=== PATIENT | male | born 1950 | race Caucasian/White ===

== ENCOUNTER → 2017-03-06 14:26 | Outpatient (CLI) | payer MEDICARE, MEDICAID, SELFPAY ==
[2017-03-06 16:00] LABS: Alanine Aminotransferase 14 U/L (12-78); Albumin Level 3.5 gm/dL (3.4-5.0); Albumin/Globulin Ratio 1.1 (1.1-1.8); Alkaline Phosphatase 120 U/L (46-116); Anion Gap 11.1 mEq/L (5-15); Aspartate Amino Transferase 17 U/L (15-37); Bilirubin,Total 0.6 mg/dL (0.2-1.0); Blood Urea Nitrogen 13 mg/dL (7-18); Calcium 8.9 mg/dL (8.5-10.1); Carbon Dioxide 27 mmol/L (21.0-32.0); Chloride 104 mmol/L (98-107); Chol/HDL Ratio 2.8 (1-3.5); Cholesterol 117 mg/dL (140-200); Creatinine,Serum 1.22 mg/dL (0.70-1.30); Estimated Glomerular Filt Rate 59 ml/min (>60); GFR (African American) > 60 ML/MIN (>60); Globulin 3.3 gm/dl (1.3-3.2); Glucose 90 mg/dL (74-106); HDL Cholesterol 42 mg/dL (27-67); LDL Cholesterol 62 mg/dL (0-130); Potassium 4.1 mmoL/L (3.5-5.1); Sodium 138 mmol/L (136-145); Total Protein,Serum 6.8 gm/dL (6.4-8.2); Triglycerides 65 mg/dL (30-200); VLDL Cholesterol 13 mg/dL (0-40)
== END ==
PROVIDERS: PCP Nurse Practitioner Family; Visit Provider Internal Medicine
DX: E78.2 Mixed hyperlipidemia (principal); I10 Essential (primary) hypertension; Z00.00 Encounter for general adult medical examination without abnormal findings
CPT/HCPCS: 36415; 80053; 80061

== ENCOUNTER 2017-05-08 10:24 | Emergency (ER) | payer MEDICARE, MEDICAID, SELFPAY ==
[2017-05-08 10:36] VITALS: BP 115/93; PULSE 75; RESP 20; TEMP 36.5; O2SAT 97; BMI 20.7
--- NOTE | 2017-05-08 10:55 | HMH.EDUTC ---
[facility] [place] Disposition Clinical Impression: Sinusitis Qualifiers: Sinusitis location: other Chronicity: unspecified Qualified Code(s): J32.9 - Chronic sinusitis, unspecified Disposition: Home, Self-Care Condition on Discharge: Good Instructions: Sinusitis, Sinus Headache, DI for Sinusitis Additional Instructions: Start antibiotic. Sinus infections may take 2-3 days to notice much improvement so be sure to use conservative measures as discussed for symptoms Flonase 2 spray in each nostril daily to help with nasal congestion, sinus an ear pressure/inflammation Lots of Fluids Sleep elevated Humidifer/vaporizer Augmentin can cause GI effects. Probiotics may help to prevent these symptoms Prescriptions: Amoxicillin/Potassium Clav [Augmentin 500mg tab] 500 mg PO TID #30 tab Dextromethorphan Polistirex [Delsym] 10 mg PO Q12H PRN #350 [email or web address] PRN Reason: Cough Referrals: Tere Germain APRN [Primary Care Provider] - Time of Disposition: 11:21 Medical Decision Making - Medical Records Medical records reviewed: Yes: I reviewed the patient's medical records. Vital Signs: 05/08/17 10:36 Temperature 97.7 F Temperature Source Temporal Artery Scan Pulse Rate [Right] 75 Respiratory Rate 20 Blood Pressure [Right Arm] 115/93 Blood Pressure Mean [Right Arm] 100 Blood Pressure Source [Right Arm] Automatic Cuff Blood Pressure Position [Right Arm] Sitting 02 Sat by Pulse Oximetry 97 Oxygen Delivery Method Room Air Orders (Tests/Meds): ORDERS Category Date Time Status Chest XR 2 view (NOT portable) [XR chest 2V] Stat Exams 05/08/17 10:59 Taken - Radiology Data #1 Image(s): Chest Image Reviewed: Yes I reviewed the patient's radiology image w/the ED provider Preliminary Findings: No Infiltrates Seen Discussed with Dr Carballo no acute findings, pacemaker - Bubba Inquiry Pt receiving controlled substance: No Bubba was queried for this patient: No - Reevaluation(s) Time: 11:16 Reevaluation #1: Patient condition and complaint discussed with Dr Carballo and agreed Treat patient with Augmentin 500mg TID for 10 days Patient also reports recent weight loss after hernia repair surgery that he has not spoken to family doctor about it Patient was advised that he needed to follow up immediately with family doctor and advise them of the weight loss for further evaluation. [facility] [place] HPI - General Stated complaint: cough dizzy ribs sore Mode of Arrival: Ambulatory Source of Information: Patient Limitations: No Limitations Description of Symptoms (Recalled from Triage Doc. by RN): COUGH, CONGESTION X4 DAYS HEENT Symptoms (Recalled from RN notes): Yes Resp Symptoms (Recalled from RN notes): No Skin Symptoms (Recalled from RN notes): No MS Symptoms (Recalled from RN notes): No Functional Status (Recalled from RN notes): N - History of Present Illness Provider Complaint: Patient state that he has been having sinus pain and pressure along with drainage, sore throat and cough that has continued to get worse State that he isn't coughing anything up States that he feels sore under his eyes and has had sinus headache for a couple of days State that now he has coughed so much his ribs feels sore - Related Data Home Medications Medication Instructions Recorded Confirmed Hydrocod/Acet 5/325 mg [[place] 5 mg PO DAILY 05/08/17 05/08/17 5/325mg tablet] Previous Rx's Medication Instructions Recorded Amoxicillin/Potassium Clav 500 mg PO TID #30 tab 05/08/17 [Augmentin 500mg tab] Dextromethorphan Polistirex 10 mg PO Q12H PRN #350 [email or web address] 05/08/17 [Delsym] Allergies Allergy/AdvReac Type Severity Reaction Status Date / Time No Known Allergies Allergy Verified 05/08/17 10:40 - Worker's Comp Is this a Worker's Comp case?: No [facility] History I have reviewed the patient's past medical history: Yes Medical History: Reports:: Hyperlipidemia, Hypertension Other Surgeries: Yes: P
--- NOTE | 2017-05-08 10:59 | ED_ITS ---
[facility] [place] Clinical Impression: Sinusitis Qualifiers: Sinusitis location: other Chronicity: unspecified Qualified Code(s): J32.9 - Chronic sinusitis, unspecified Disposition: Home, Self-Care Condition on Discharge: Good Instructions: Sinusitis, Sinus Headache, DI for Sinusitis Additional Instructions: Start antibiotic. Sinus infections may take 2-3 days to notice much improvement so be sure to use conservative measures as discussed for symptoms Flonase 2 spray in each nostril daily to help with nasal congestion, sinus an ear pressure/inflammation Lots of Fluids Sleep elevated Humidifer/vaporizer Augmentin can cause GI effects. Probiotics may help to prevent these symptoms Prescriptions: Amoxicillin/Potassium Clav [Augmentin 500mg tab] 500 mg PO TID #30 tab Dextromethorphan Polistirex [Delsym] 10 mg PO Q12H PRN #350 [email or web address].[email or web address] PRN Reason: Cough Referrals: Tere Germain APRN [Primary Care Provider] - Time of Disposition: 11:21 Medical Decision Making - Medical Records Medical records reviewed: Yes: I reviewed the patient's medical records. Vital Signs: 05/08/17 10:36 Temperature 97.7 F Temperature Source Temporal Artery Scan Pulse Rate [Right] 75 Respiratory Rate 20 Blood Pressure [Right Arm] 115/93 Blood Pressure Mean [Right Arm] 100 Blood Pressure Source [Right Arm] Automatic Cuff Blood Pressure Position [Right Arm] Sitting 02 Sat by Pulse Oximetry 97 Oxygen Delivery Method Room Air Orders (Tests/Meds): ORDERS Category Date Time Status Chest XR 2 view (NOT portable) [XR chest 2V] Stat Exams 05/08/17 10:59 Taken - Radiology Data #1 Image(s): Chest Image Reviewed: Yes I reviewed the patient's radiology image w/the ED provider Preliminary Findings: No Infiltrates Seen Discussed with Dr Carballo no acute findings, pacemaker - Bubba Inquiry Pt receiving controlled substance: No Bubba was queried for this patient: No - Reevaluation(s) Time: 11:16 Reevaluation #1: Patient condition and complaint discussed with Dr Carballo and agreed Treat patient with Augmentin 500mg TID for 10 days Patient also reports recent weight loss after hernia repair surgery that he has not spoken to family doctor about it Patient was advised that he needed to follow up immediately with family doctor and advise them of the weight loss for further evaluation. [facility] [place] HPI - General Stated complaint: cough dizzy ribs sore Mode of Arrival: Ambulatory Source of Information: Patient Limitations: No Limitations Description of Symptoms (Recalled from Triage Doc. by RN): COUGH, CONGESTION X4 DAYS HEENT Symptoms (Recalled from RN notes): Yes Resp Symptoms (Recalled from RN notes): No Skin Symptoms (Recalled from RN notes): No MS Symptoms (Recalled from RN notes): No Functional Status (Recalled from RN notes): N - History of Present Illness Provider Complaint: Patient state that he has been having sinus pain and pressure along with drainage, sore throat and cough that has continued to get worse State that he isn't coughing anything up States that he feels sore under his eyes and has had sinus headache for a couple of days State that now he has coughed so much his ribs feels sore - Related Data Home Medications Medication Instructions Recorded Confirmed Hydrocod/Acet 5/325 mg [[place] 5 mg PO DAILY 05/08/17 05/08/17 5/325mg tablet]
--- NOTE | 2017-05-08 10:59 | XR_ITS ---
XR chest 2V HISTORY: ITS.REASON: congestion/cough ORDERING PHYSICIAN: Tiffany Paulson PATIENT AGE: 66 years COMPARISON: 06/23/2016 FINDINGS: There has been prior CABG. A bipolar pacemaker is present COPD. No lobar consolidation or collapse. No acute bony anomalies. IMPRESSION: COPD, No change with no acute finding
[2017-05-08 11:18] VITALS: BP 115/93; PULSE 75; RESP 20; TEMP 36.5
== END 2017-05-08 11:39 | disposition home or self-care (01) ==
PROVIDERS: Emergency Provider Nurse Practitioner; Family Provider Nurse Practitioner Family; PCP Nurse Practitioner Family
DX: J32.9 Chronic sinusitis, unspecified (principal); I10 Essential (primary) hypertension; E78.5 Hyperlipidemia, unspecified; Z95.0 Presence of cardiac pacemaker
CPT/HCPCS: G0463; 71046; 99202

== ENCOUNTER → 2017-11-09 10:46 | Outpatient (CLI) | payer MEDICARE, MEDICAID, SELFPAY ==
[2017-11-09 10:56] LABS: Adenovirus,PCR Not Detected (NotDetected); Bordetella Pertussis Not Detected (NotDetected); Chlamydophila Pneumoniae, PCR Not Detected (NotDetected); Coronavirus 229E Not Detected (NotDetected); Coronavirus NL63 Not Detected (NotDetected); Coronavirus OC43 Not Detected (NotDetected); Coronovirus HKU1,PCR Not Detected (NotDetected); Human Metapneumovirus Not Detected (NotDetected); Influenza A, PCR Not Detected (NotDetected); Influenza AH1, 2009 Not Detected (NotDetected); Influenza AH1, PCR Not Detected (NotDetected); Influenza AH3,PCR Not Detected (NotDetected); Influenza B, PCR Not Detected (NotDetected); Mycoplasma Pneumoniae, PCR Not Detected (NotDected); Parainfluenza 1, PCR Not Detected (NotDetected); Parainfluenza 2, PCR Not Detected (NotDetected); Parainfluenza 3, PCR Not Detected (NotDetected); Parainfluenza 4, PCR Not Detected (NotDetected); Respiratory Syncytial Virus Not Detected (NotDetected)
[2017-11-09 11:28] LABS: Basophils # 0.1 K/mm3 (0-0.2); Basophils % 0.5 % (0.1-2.0); Eosinophils % 0.4 % (0.1-12.0); Hematocrit 45.9 % (42.0-52.0); Hemoglobin 15.1 g/dL (14.1-18.0); Lymphocytes # 2.5 K/mm3 (0.7-4.5); Lymphocytes % 23.2 K/mm3 (10-50); Mean Corpuscular HGB Conc 32.9 g/dL (31.8-35.4); Mean Corpuscular Hemoglobin 28.4 pg (27.0-31.2); Mean Corpuscular Volume 86.5 fl (80-94); Mean Platelet Volume 7.1 fl (7.4-10.4); Monocytes # 0.6 K/mm3 (0.1-1.0); Monocytes % 5.8 % (1.7-9.3); Neutrophils # 7.4 K/mm3 (1.8-7.8); Neutrophils % 70.1 % (37.0-80.0); Platelet Count 216 K/mm3 (142-424); Red Cell Distribution Width 12.7 % (11.5-17.5); White Blood Count 10.6 K/mm3 (4.8-10.8)
[2017-11-09 12:42] LABS: Rhinovirus/Enterovirus Detected (NotDetected)
[2017-11-09 13:05] LABS: Alanine Aminotransferase 15 U/L (12-78); Albumin/Globulin Ratio 0.7 (1.1-1.8); Alkaline Phosphatase 117 U/L (46-116); Anion Gap 13.5 mEq/L (5-15); Aspartate Amino Transferase 13 U/L (15-37); Bilirubin,Total 0.7 mg/dL (0.2-1.0); Blood Urea Nitrogen 19 mg/dL (7-18); Carbon Dioxide 27 mmol/L (21.0-32.0); Chloride 108 mmol/L (98-107); Chol/HDL Ratio 2.4 (1-3.5); Cholesterol 91 mg/dL (140-200); Creatinine,Serum 1.33 mg/dL (0.70-1.30); Estimated Glomerular Filt Rate 53 ml/min (>60); GFR (African American) 65 ML/MIN (>60); Globulin 4.1 gm/dl (1.3-3.2); Glucose 98 mg/dL (74-106); HDL Cholesterol 38 mg/dL (27-67); LDL Cholesterol 42 mg/dL (0-130); Potassium 4.5 mmoL/L (3.5-5.1); Sodium 144 mmol/L (136-145); Total Protein,Serum 7.1 gm/dL (6.4-8.2); Triglycerides 56 mg/dL (30-200); VLDL Cholesterol 11 mg/dL (0-40)
[2017-11-10 18:28] LABS: Vitamin B12 358 pg/mL (232-1245)
== END ==
PROVIDERS: PCP Internal Medicine Adolescent Medicine; Visit Provider Internal Medicine Adolescent Medicine
DX: E78.2 Mixed hyperlipidemia (principal); J44.1 Chronic obstructive pulmonary disease with (acute) exacerbation; E53.8 Deficiency of other specified B group vitamins
CPT/HCPCS: 36415; 80053; 80061; 82607; 85025; 87486; 87581; 87633; 87798

== ENCOUNTER → 2017-11-27 08:45 | Outpatient (POV) | payer MEDICARE, MEDICAID, SELFPAY | PROVIDERS: Family Provider Nurse Practitioner Family; PCP Internal Medicine Adolescent Medicine; Visit Provider Internal Medicine | DX: Z00.00 Encounter for general adult medical examination without abnormal findings (principal) ==

== ENCOUNTER → 2017-12-13 13:43 | Outpatient (CLI) | payer MEDICARE, MEDICAID, SELFPAY ==
[2017-12-13 14:18] LABS: Blood Urea Nitrogen 14 mg/dL (7-18); Creatinine,Serum 1.32 mg/dL (0.70-1.30); Estimated Glomerular Filt Rate 54 ml/min (>60); GFR (African American) 65 ML/MIN (>60)
--- NOTE | 2017-12-13 14:27 | CT_ITS ---
CT angio LE BI INDICATION: ITS.REASON: CLAUDICATION IN PVD, BILAT LEG PAIN ORDERING PHYSICIAN: Neal Hammond MD PATIENT AGE: 67 years COMPARISON: 10/25/2014 TECHNIQUE: Axial images are obtained following the intravenous ministration of 120 mL's of Isovue-370. Sagittal and coronal reformats are reviewed. . Sagittal and coronal reformatted images are reviewed as well. All CT scans at the facility use one or more dose reduction, viz: automated exposure control, ma/kV adjustment per patient size (including targeted exams where dose is matched to indication, i.e. head), or iterative reconstruction technique. FINDINGS: Abdominal aorta: Atheromatous changes involve the abdominal aorta. There is a fusiform infrarenal abdominal aortic aneurysm which measures up to 3.9 cm AP and transverse. This begins 2.6 cm below the level of the renal arteries. This extends for length of 4.2 cm with a aorta becomes normal caliber of 1.8 cm and then becomes aneurysmal again measuring up to 2.7 cm and then tapers to normal at the aortic bifurcation. The superior mesenteric artery and celiac artery show no significant stenosis. The TONG emerges from the aorta anteriorly along the lower part of the superior superior aneurysm and is patent. No evidence of renal artery stenosis. Atheromatous changes involve the iliac arteries with no significant stenosis. Right lower extremity runoff: Scattered atheromatous changes of the SFA and popliteal. Vessels below the knee are small in caliber. There is segmental stenotic areas of the right anterior tibia which is only patent to the mid calf. The peroneal artery is very small and patent to the mid calf. The anterior tibia is patent to the ankle with no significant stenosis. Left lower extremity: Mild atheromatous changes are present in the SFA proximally. There is 50% stenosis involving a short segment of the mid SFA on the left. The popliteal has an unremarkable appearance. Atheromatous changes are present involving the trifurcation vessels. The vessels to the lower extremity below the knee are small. Posterior tibial is patent to the ankle. The anterior tibial is only patent to the mid calf as is the peroneal. Nonvascular findings: Fibrotic changes are present in the lung bases. There is parenchymal opacity in the right lung base posteriorly which may be due to an area of atelectasis or fibrosis. Developing nodules also a consideration and follow-up is recommended. This measures 1.6x0.8 cm. There is a peripherally enhancing lesion in the left lobe of the liver medially measuring 1.5 cm and may be due to a hemangioma. Spleen, adrenal glands, and pancreas are unremarkable. There is a 3.2 cm right renal cyst along the upper pole. There is a 4 mm nonobstructing stone in the upper pole the left kidney and a 6 mm stone in the lower pole the left kidney. There is a small ventral abdominal wall hernia in the sulci void region to the right of midline containing fat with some increased density which could be due to some underlying inflammation nonspecific. Scattered diverticula are present involving the colon with no evidence of diverticulitis. No pelvic mass or abnormal fluid collection. No evidence of appendicitis. There are surgical clips along the medial aspect of the right leg and could be due to prior vein harvesting site. Clip is also present along the medial aspect of the thigh proximally bone infarction involves the proximal femur on the right with mixed sclerotic and lucent density IMPRESSION: 1. Infrarenal abdominal aortic aneurysm as described above measuring up to 3.9 x 3.9 cm previously 3.3 x 3.4 cm on 10/25/2014 2. 50% short segment stenosis of the mid left SFA. 3. Small bilateral lower extremity runoff vessels below the knee with atheromatous changes. The posterior tibial artery i
== END ==
PROVIDERS: Family Provider Nurse Practitioner Family; PCP Internal Medicine Adolescent Medicine; Visit Provider Internal Medicine Adolescent Medicine
DX: I73.9 Peripheral vascular disease, unspecified (principal); M79.605 Pain in left leg; M79.604 Pain in right leg
CPT/HCPCS: 36415; 73701; 82565; 84520; Q9967

== ENCOUNTER → 2018-01-14 06:56 | Outpatient (CLI) | payer MEDICARE, MEDICAID, SELFPAY ==
--- NOTE | 2018-01-14 06:59 | US_ITS ---
US Arterial Ankle Brachial Ind History: Claudication, smoker, rest pain ITS.REASON: pains in legs ORDERING PHYSICIAN: Heath Mccurdy MD PATIENT AGE: 67 years TECHNIQUE: Segmental pressures obtained of both right and left leg. These are compared to brachial blood pressure to yield index at each level sampled including summary RAJ. The data sheets from the procedure are available in PACS FINDINGS Rest study only performed today No prior studies available for comparison. Blood pressures reported are in millimeters mercury. RIGHT LEG RAJ = 1.1. RIGHT LEG TBI=.4 Brachial BP: 148 Thigh BP: 164 Calf BP: 160 Ankle PT: 162 Ankle DP : 160 Digit =63 LEFT LEG RAJ = 1.0 LEFT LEG TBI= .5 Brachial BPD: 143 Thigh BP: 145 Calf BP: 152 Ankle PT:154 Ankle DP: 93 Digit = 78 Pulses and waveforms: Normal IMPRESSION: The ABIs as reported above are within normal limits. Waveforms and pulses are also unremarkable. The TBI's are low which may indicate small vessel disease.
--- NOTE | 2018-01-14 06:59 | CA_ITS ---
PROCEDURE: 2-D M-mode and color Doppler study INDICATIONS FOR THE TEST: Chest pain COPD Heart Murmur Tobacco Smoking+ Palpitations Fatigue Syncope Edema Hypertension+Diabetes Mellitus Rheumatic Fever SOB BRUNNER Obesity Hyperlipidemia+ Family History HD Additional History AAA, CABG, PACER PATIENT INFORMATION HEIGHT: 68 WEIGHT:153 GENDER: Male B/P:155/105 2-D/M-MODE INTERPRETATION: 2-D MEASUREMENTS OBSERVED VALUES IN CMS Right Ventricular Dimension (RVDd) 1.9 Interventricular Septum (Thickness)(IVsd) 1.6 Left Ventricular Internal Dimensions(LVIDd) 4.4 Left Ventricular Posterior Wall (Thickness)(LVPWd) 1.0 Aortic Root 3.5 Aortic Cusp Separation 2.2 Left Atrial Dimensions (LAD) 3.4 2D 1. Left atrium is mildly enlarged, left ventricle is normal size, mild concentric left ventricular hypertrophy, visually estimated ejection fraction 30-35%, there is marked hypokinesis involving the mid to distal septum, anterior, anteroapical and apical wall. 2. The right atrium and right ventricle are normal size and contractility, there is a pacemaker lead seen in the right ventricle. 3. The aortic valve is minimally thickened and fibrosed. 4. The mitral and tricuspid valve leaflets are minimally thickened. 5. The pulmonic valve is poorly visualized. 6. No significant pericardial effusion noted. DOPPLER INTERROGATION: Doppler interrogation of the aortic, mitral and tricuspid valvular presence of mild mitral and tricuspid regurgitation, calculated right ventricular systolic pressure is 37 mmHg consistent with mild bony hypertension, grade 1 diastolic dysfunction seen with tissue Doppler evidence of raised left atrial pressure. CONCLUSION: 1. Mildly enlarged left atrium, normal left ventricular size, mild concentric left ventricular hypertrophy, visually estimated ejection fraction 30-35% with multiple segmental wall motion abnormality described above, grade 1 diastolic dysfunction seen with tissue Doppler evidence of raised left atrial pressure. 2. Mild mitral and tricuspid regurgitation, calculated right ventricular systolic pressure is 37 mmHg consistent with mild primary hypertension. 3. No significant pericardial effusion noted.
--- NOTE | 2018-01-14 06:59 | NM_ITS ---
CARDIOLITE SPECT MYOCARDIAL PERFUSION SCAN, REST AND STRESS: EXERCISE STRESS [facility] REVIEW QGS EF AND WALL MOTION EVALUATION: QPS - PERFUSION EVALUATION HISTORY: CAD, CABG, HTN, Tobacco use DOSE: 9.74 mCi technetium 99m mibi intravenously at rest followed by 30.6 mCi technetium 99m mibi following the intravenous ministration of 0.4 mg of Lexiscan. Resting blood pressure is 143/82. Stress blood pressure 157/82. FINDINGS: Ejection fraction is calculated to be 32%. Stress images reveal severely decreased activity throughout the anterior apical and inferior apical wall. Rest images reveal no significant change. Gated images calculated ejection fraction of 32% with anterior apical and inferior apical akinesis. IMPRESSION: Extensive transmural myocardial infarction involving the anterior apical and inferior apical wall with no reversible ischemia accompanied by severe regional wall motion abnormality and severely reduced ejection fraction
--- NOTE | 2018-01-14 07:55 | HMH.ITSHM ---
Current Home Medications as stated by this patient Lee Greene or sales service representative. []LOSARTAN, EZETIMIBE, ASA FLOMAX ESOMEPRAZOLE CARVEDILOL ATORVASTATIN ASA
== END ==
PROVIDERS: PCP Internal Medicine Adolescent Medicine; Visit Provider Internal Medicine
DX: R07.9 Chest pain, unspecified; I25.10 Atherosclerotic heart disease of native coronary artery without angina pectoris; I10 Essential (primary) hypertension; I25.5 Ischemic cardiomyopathy; R06.09 Other forms of dyspnea; Z95.1 Presence of aortocoronary bypass graft; Z95.810 Presence of automatic (implantable) cardiac defibrillator; F17.200 Nicotine dependence, unspecified, uncomplicated; I71.4 Abdominal aortic aneurysm, without rupture; J42 Unspecified chronic bronchitis; I73.9 Peripheral vascular disease, unspecified
CPT/HCPCS: 78452; 93017; 93306; 93922; A9502; J2785

== ENCOUNTER 2018-03-27 12:57 | Outpatient (RCR) | payer MEDICARE, MEDICAID, SELFPAY | END 2018-06-06 13:23 | disposition home or self-care (01) | LOC: PT 12:57 | PROVIDERS: Visit Provider Internal Medicine | DX: Z95.5 Presence of coronary angioplasty implant and graft (principal) ==

== ENCOUNTER → 2018-06-04 09:29 | Outpatient (CLI) | payer MEDICARE, MEDICAID, SELFPAY ==
--- NOTE | 2018-06-04 09:32 | CI_ITS ---
Cerebrovascular Exam Indications: 785.9 Bruit. IMPRESSIONS 1. The bilateral vertebral arteries are patent with normal antegrade flow. 2. Study suggests 20-49% stenosis involving the right internal carotid artery. 3. Study suggests 20-49% stenosis involving the left internal carotid artery. History: Risk factors: Current tobacco use. Hypertension. Carotid duplex study. Complete study and Doppler flow study including spectral analysis, color and hernandez scale imaging. Height: Height: 175.3cm. Height: 69in. Weight: Weight: 68.9kg. Weight: 151.7lb. Body mass index: BMI: 22.4kg/m^2. Body surface area: BSA: 1.83m^2. Location: Vascular laboratory. Patient status: Outpatient. Tables: Arterial flow: + +--------+--------+ Location V sys V ed + +--------+--------+ Right CCA - proximal 76.2cm/s 19.6cm/s + +--------+--------+ Right CCA - distal 83.3cm/s 28.3cm/s + +--------+--------+ Right ECA 72.1cm/s 14.2cm/s + +--------+--------+ Right ICA - proximal 86.9cm/s 26.7cm/s + +--------+--------+ Right ICA - mid 78.3cm/s 28.9cm/s + +--------+--------+ Right ICA - distal 75.3cm/s 24.9cm/s + +--------+--------+ Right vertebral 44cm/s 15.9cm/s + +--------+--------+ Left CCA - proximal 72cm/s 21.8cm/s + +--------+--------+ Left CCA - distal 75.9cm/s 22.5cm/s + +--------+--------+ Left ECA 84cm/s 21.7cm/s + +--------+--------+ Left ICA - proximal 55.5cm/s 21.1cm/s + +--------+--------+ Left ICA - mid 71cm/s 28.8cm/s + +--------+--------+ Left ICA - distal 81cm/s 34.1cm/s + +--------+--------+ Left vertebral 43.4cm/s 11.2cm/s + +--------+--------+ Velocity ratios: + + + + + + Right, V sys Right, V ed Left, V sys Left, V ed + + + + + + Max ICA/dist CCA 1.04 1.02 1.07 1.52 + + + + + + (Report amended ) Electronically signed by: Rafael Mercedes [id number]
--- NOTE | 2018-06-04 09:35 | US_ITS ---
US aorta COMPARISON: CT angiogram of the abdomen with runoff 12/13/2017 HISTORY: Follow-up aortic aneurysm TECHNIQUE: Targeted ultrasound of the aorta FINDINGS: There is a fusiform aneurysm of the infrarenal aorta with measurements 1 cm above the level of the umbilicus of 3.7 x 3.8 cm. There is prominent intraluminal plaque noted. The aneurysm tapers to normal caliber just above the umbilicus. There is borderline dilatation of the proximal common iliac arteries bilaterally. Basically the measurement of the infrarenal aneurysm and the appearance of the common iliacs are stable when compared to the previous CT angiogram study. IMPRESSION: Stable fusiform infrarenal aortic aneurysm as noted
== END ==
PROVIDERS: PCP Internal Medicine Adolescent Medicine; Visit Provider Internal Medicine Cardiovascular Disease
DX: I25.10 Atherosclerotic heart disease of native coronary artery without angina pectoris (principal); R09.89 Other specified symptoms and signs involving the circulatory and respiratory systems; I10 Essential (primary) hypertension; I71.4 Abdominal aortic aneurysm, without rupture; J42 Unspecified chronic bronchitis; E78.49 Other hyperlipidemia; F17.200 Nicotine dependence, unspecified, uncomplicated
CPT/HCPCS: 76770; 93880

== ENCOUNTER 2018-09-18 18:46 | Inpatient (IN) ==
[2018-09-18 19:08] LABS: Basophils # 0.1 K/mm3 (0-0.2); Basophils % 0.4 % (0.1-2.0); Eosinophils # 0.3 K/mm3 (0.0-0.4); Eosinophils % 2.2 % (0.1-12.0); Hematocrit 46.7 % (42.0-52.0); Hemoglobin 14.8 g/dL (14.1-18.0); Lymphocytes % 24.7 % (10-50); Mean Corpuscular HGB Conc 31.8 g/dL (31.8-35.4); Mean Platelet Volume 6.7 fl (7.4-10.4); Monocytes # 0.6 K/mm3 (0.1-1.0); Monocytes % 4.9 % (1.7-9.3); Neutrophils # 8.2 K/mm3 (1.8-7.8); Neutrophils % 67.8 % (37.0-80.0); Platelet Count 312 K/mm3 (142-424); Red Blood Count 5.62 M/mm3 (4.60-6.20); Red Cell Distribution Width 13.5 % (11.5-17.5); White Blood Count 12.1 K/mm3 (4.8-10.8)
[2018-09-18 19:20] LABS: Anion Gap 12.9 mEq/L (5-15); Blood Urea Nitrogen 21 mg/dL (7-18); Calcium 9.1 mg/dL (8.5-10.1); Carbon Dioxide 27 mmol/L (21.0-32.0); Chloride 104 mmol/L (98-107); Glucose 140 mg/dL (74-106); Sodium 140 mmol/L (136-145)
[2018-09-18 20:39] LABS: Microscopic, Urine URINE MICROSCOPIC (MICROSCOPIC)
[2018-09-18 20:42] LABS: Appearance,Urine CLEAR (Clear); Bilirubin,Urine Negative (Negative); Blood, Urine Negative (Negative); Color,Urine YELLOW (Yellow); Glucose,Urine (UA) Negative (Negative); Ketones,Urine Negative (Negative); Leukocyte Esterase,Urine Negative (Negative); Protein,Urine Negative (Negative); Urobilinogen,Urine 0.2 EU/dl (0.2)
[2018-09-18 20:43] LABS: Albumin Level 2.9 gm/dL (3.4-5.0); Bilirubin,Direct 0.1 mg/dL (0.0-0.2); Bilirubin,Indirect 0.3 mg/dL (0.0-0.9); Bilirubin,Total 0.4 mg/dL (0.2-1.0); C-Reactive Protein 6.8 mg/L (0.0-0.9); Total Protein,Serum 7.1 gm/dL (6.4-8.2)
[2018-09-18 20:58] LABS: Bacteria,Urine Trace /lpf; Sperm,Urine 1+ /lpf; Squamous Epithelial Cell,Urine Occasional #/hpf (0-5); WBC,Urine Occasional #/hpf (0-3)
--- NOTE | 2018-09-18 21:29 | Emergency Department Note ---
ED Disposition Clinical Impression: Diverticulitis, Abdominal aortic aneurysm (AAA) 3.0 cm to 5.5 cm in diameter in male CAP (community acquired pneumonia) Qualifiers: Laterality: right Lung location: lower lobe of lung Qualified Code(s): J18.1 - Lobar pneumonia, unspecified organism Disposition: Admitted As Inpatient Condition on Discharge: Good - Critical Care Critical Care Time: No Attestation: On 09/18/18, the high probability of a clinically significant, sudden or life threatening deterioration of the following system(s) required my full and direct attention, intervention and personal management. The time I documented below is in addition to time spent performing reported procedures but includes the following listed in this critical care notation. Medical Decision Making - Medical Records Medical records reviewed: Yes: I reviewed the patient's medical records. - Bubba Inquiry Pt receiving controlled substance: No Vital Signs: 09/18/18 18:47 Temperature 98.2 F Temperature Source Oral Pulse Rate [Left Radial] 68 Respiratory Rate 16 Blood Pressure [Right Arm] 111/78 Blood Pressure Mean [Right Arm] 89 Blood Pressure Source [Right Arm] Automatic Cuff Blood Pressure Position [Right Arm] Sitting 02 Sat by Pulse Oximetry 98 Oxygen Delivery Method Room Air - Lab Data Lab results reviewed: Yes: I reviewed the patient's lab results. Lab Results 09/18/18 18:50: WBC 12.1 H, RBC 5.62, Hgb 14.8, Hct 46.7, MCV 83.0, MCH 26.4 L, MCHC 31.8, RDW 13.5, Plt Count 312, MPV 6.7 L, Neut % (Auto) 67.8, Lymph % (Auto) 24.7, [place] % (Auto) 4.9, Eos % (Auto) 2.2, Baso % (Auto) 0.4, Neut # (Auto) 8.2 H, Lymph # (Auto) 3.0, [place] # (Auto) 0.6, Eos # (Auto) 0.3, Baso # (Auto) 0.1 09/18/18 18:50: Sodium 140, Potassium 3.9, Chloride 104, Carbon Dioxide 27, Anion Gap 12.9, BUN 21 H, Creatinine 1.35 H, Estimated Creat Clear 48, Estimated GFR 52 L, Est GFR ( Amer) 63, Glucose 140 H, Calcium 9.1, Troponin I < 0.02 07/17/19 18:50: ESR 15 09/18/18 18:50: Total Bilirubin 0.4, Direct Bilirubin 0.1, Indirect Bilirubin 0.3, AST 16, ALT 15, Alkaline Phosphatase 105, C-Reactive Protein 6.8 H, Total Protein 7.1, Albumin 2.9 L, Amylase 67, Lipase 104 09/18/18 20:31: Urine Color Yellow, Urine Appearance Clear, Urine pH 6.0, Ur Specific [place] 1.020, Urine Protein Negative, Urine Glucose (UA) Negative, Urine Ketones Negative, Urine Blood Negative, Urine Nitrate Negative, Urine Bilirubin Negative, Urine Urobilinogen 0.2, Ur Leukocyte Esterase Negative, Urine WBC Occasional, Ur Squamous Epith Cells Occasional, Urine Bacteria Trace, Urine Sperm 1+ Result diagrams: 09/18/18 18:50 09/18/18 18:50 Orders (Tests/Meds): ED MEDICATIONS Generic Name Dose Route Start Last Admin Trade Name Freq PRN Reason Stop Dose Admin Sodium Chloride 1,000 mls @ 999 mls/hr 09/18/18 20:45 09/18/18 20:50 Sod Chlor 0.9% 1000ml Bag IV 09/18/18 21:45 999 mls/hr .Q1H1M ASHIA Administration Metronidazole 500 mg in 100 mls @ 100 mls/hr 09/18/18 22:45 Flagyl 500mg/100ml Ivpb IV 10/02/18 22:44 Q8H ASHIA Protocol Levofloxacin/Dextrose 750 mg in 150 mls @ 100 mls/hr 09/18/18 22:45 Levofloxacin 750mg/150ml Premix IV 10/02/18 22:44 Q24H ASHIA Protocol Sodium Chloride 10 ml 09/18/18 20:32 Saline Flush 10ml Syringe IV 10/18/18 20:31 NEEDED PRN Maintain IV Site Discontinued Medications Generic Name Dose Route Start Last Admin Trade Name Freq PRN Reason Stop Dose Admin Aspirin 324 mg 09/18/18 18:57 09/18/18 19:02 Aspirin 81mg Chewable Tablet PO 09/18/18 18:58 324 mg ONCE ONE Administration Famotidine 20 mg 09/18/18 20:32 09/18/18 20:50 Pepcid 20mg/2ml Vial IV 09/18/18 20:33 20 mg ONCE ONE Administration Ioversol 70 ml 09/18/18 21:09 09/18/18 21:11 Rad-Optiray 350 100ml Vial IV 09/18/18 21:10 70 ml ONCE ONE Administration Protocol Ketorolac Tromethamine 30 mg 09/18/18 20:32 09/18/18 20:50 Toradol 30mg/Ml Vial IV 09/18/18 20:33 30 mg ONCE ONE Administration Metoclopramide HCl 10 mg 09/18/18 20:32 09/18/18 20:50 Reglan 10mg/2ml Vial IVP 09/18/18 20:33 10 mg ONCE ONE Administration Ondansetron HCl 4 mg 09/18/18 20:32 09/18/18 20:50 Zofran 4mg/2ml Vial IV 09/18/18 20:33 4 mg ONCE ONE Administration Sodium Chloride 8 ml 09/18/18 20:32 09/18/18 20:49 Saline Flush 10ml Syringe IV 09/18/18 20:33 8 ml ONCE ONE Administration Sodium Chloride 10 ml 09/18/18 21:09 09/18/18 21:11 Rad-Ns 50ml Vial IV 09/18/18 21:10 10 ml ONCE ONE Administration ORDERS Category Date Time Status CT abdomen pelvis w con Stat Cat Scan 09/18/18 20:24 Taken Chest XR 2 view (NOT portable) [XR chest 2V] Stat Exams 09/18/18 18:54 Taken - Radiology Data #1 Image(s): Chest Image Reviewed: Yes I reviewed the patient's radiology image Preliminary Findings: Abnormal (rt lower lobe changes ) - CT Data CT Scan: Abdomen, Pelvis Time Received: 22:[address] Reviewed: Yes: I have viewed the radiologist's interpretation - ECG Data Tracing #1 I reviewed this ECG and interpreted as documented below: Normal Sinus Rhythm: Yes Ischemic changes: non-specific ST-T wave changes Nausea/Vomiting/Diarrhea HPI - General Chief complaint: Chest Pain Stated complaint: chest pain Time Seen by Provider: 09/18/18 20:00 Mode of Arrival: Ambulatory Source of Information: Patient, Spouse, Medical Record Limitations: No Limitations Description of Symptoms (Recalled from ER Triage Doc. by RN): to ed per pvt car with c/o lt side chest pain under rib area starting today. states he thought it was indigestion and took nexium. states pain worse with exertion denies any radiation, sob, diaphoresis. pt states he was dx with pneumonia 1 week ago given antibiotics and steroids states he finished course.pt with hx of cabg. cpta home meds - History of Present Illness HPI Narrative: pt with recent cap and treated as op - he presents tonight with lt upper abd pain which was not relieved with home meds - he denied any resp sx and completed abx - he stopped tob use 2 months ago - no fever MD complaint: nausea, abdominal pain Onset (ago): hour(s) Associated Abdominal Pain: Yes Location of pain: LUQ Severity: moderate Associated symptoms: denies other symptoms - Related Data Home Medications Medication Instructions Recorded Confirmed atorvastatin 80 mg tablet 80 mg PO DAILY tab 06/18/17 09/18/18 esomeprazole magnesium 40 mg 40 mg PO DAILY cap 06/18/17 09/18/18 capsule,delayed release ezetimibe 10 mg tablet 10 mg PO DAILY tab 06/18/17 09/18/18 aspirin 81 mg tablet,delayed 81 mg PO DAILY 11/01/17 09/18/18 release ticagrelor 90 mg tablet 90 mg PO BID 02/04/18 09/18/18 Carvedilol [Carvedilol 25mg Tab] 25 mg PO BID 09/18/18 09/18/18 Sacubitril/Valsartan [Entresto] 1 tab PO BID 09/18/18 09/18/18 Allergies Allergy/AdvReac Type Severity Reaction Status Date / Time No Known Allergies Allergy Verified 08/30/18 10:07 [facility] History - Hepatitis A Screen Drug use history?: No High risk sexual behaviors?: No History of sexually transmitted infection?: No Currently employed?: No Childcare worker?: No Do you have indoor plumbing?: Yes Do you have electricity?: Yes Attestation statement:: This patient has been screened for Hepatitis A risk factors. I have reviewed the patient's past medical history: Yes Medical History: Reports:: Chronic Obstructive Pulmonary Disease (COPD), Hyperlipidemia, Hypertension, Internal Pacemaker Denies:: Cancer, Diabetes Mellitus Type 1, Diabetes Mellitus Type 2, MRSA Other Surgeries: Yes: CABG, Cardiac Catheterization, Coronary Stent, Hernia Repair, Pacemaker Amputation: No Fractures: No - Social History Smoking Status: Former smoker Tobacco Type: cigarettes # Packs/Day (cigarettes): 1 Alcohol Intake: never Alcohol Intake Frequency:: other Substance Use Type: denies use Occupational Status: disabled Household Members: spouse Family Hx:: No significant family history ROS Obtained: Yes All systems reviewed & no additional complaints - Constitutional Constitutional: Denies fever(s) - Eyes Eyes: Denies change in vision - ENT Ears, Nose, Mouth, and Throat: Denies sore throat - Cardiovascular Cardiovascular: Denies chest pain - Respiratory Respiratory: No cough - Gastrointestinal Gastrointestingal: Reports: abdominal pain, nausea, vomiting - Genitourinary Male Genitourinary: Denies flank pain - Musculoskeletal Musculoskeletal: Denies joint pain - Integumentary/Breasts Skin/Breast: Denies rash - Neurologic Neurologic: Denies seizure-like activity Physical Exam - General General appearance: alert - Head Head exam: normocephalic - Eye Eye exam: Present: PERRL, EOMI. Absent: scleral icterus - ENT ENT exam: Present: mucous membranes dry - Neck Neck exam: Present: trachea midline - Respiratory Respiratory exam: Absent: respiratory distress - Cardiovascular Cardiovascular exam: Present: regular rate, systolic murmur - Abdominal Exam Abdominal exam: Present: soft, tenderness Abdominal tenderness: Present: LUQ, moderate - Extremities Exam Extremities exam: Present: full ROM - Neurological Exam Neurological exam: Present: alert, oriented X3, CN II-XII intact - Psychiatric Psychiatric exam: Present: normal affect - Skin Skin exam: Absent: rash
--- NOTE | 2018-09-19 07:19 | Pharmacy Consult Notes ---
[facility] VTE Monitoring - Patient Demographics Admission date: 09/18/18 Report Date: 09/19/18 Time: :19 Allergies/Adverse Reactions: Patient Allergies No Known Allergies Allergy (Verified 08/30/18 10:07) Height: 1.75 m Weight: 65.459 kg Patient Problems: Current Active Problems (Updated 09/18/18 @ 22:50 by Santino Gill MD) Diverticulitis (Acute) CAP (community acquired pneumonia) (Acute) Abdominal aortic aneurysm (AAA) 3.0 cm to 5.5 cm in diameter in male (Chronic) - VTE Risk Labs: VTE Related Lab Results Hgb 14.8 g/dL (14.1-18.0) 09/18/18 18:50 Hct 46.7 % (42.0-52.0) 09/18/18 18:50 Plt Count 312 K/mm3 (142-424) 09/18/18 18:50 BUN 21 mg/dL (7-18) H 09/18/18 18:50 Creatinine 1.35 mg/dL (0.70-1.30) H 09/18/18 18:50 Estimated Creat Clear 48 mL/min (50-200) 09/18/18 18:50 - Prophylaxis VTE Prophylaxis Ordered?: Yes Types of VTE Prophylaxis: TEDS Knee High Location of Applied Device: Bilateral Lower Extremeties - VTE Diagnosis Confirmed Treatment or plan recommended: Continue Current Treatment
[2018-09-19 07:26] LABS: Anion Gap 9.1 mEq/L (5-15)
[2018-09-19 07:27] LABS: Basophils % 0.5 % (0.1-2.0); Eosinophils # 0.2 K/mm3 (0.0-0.4); Eosinophils % 2.5 % (0.1-12.0); Hematocrit 38.4 % (42.0-52.0); Lymphocytes # 2.6 K/mm3 (0.7-4.5); Lymphocytes % 41.7 % (10-50); Mean Corpuscular HGB Conc 31.1 g/dL (31.8-35.4); Mean Corpuscular Volume 84.4 fl (80-94); Monocytes # 0.5 K/mm3 (0.1-1.0); Monocytes % 7.5 % (1.7-9.3); Neutrophils % 47.8 % (37.0-80.0); Platelet Count 220 K/mm3 (142-424); Red Blood Count 4.55 M/mm3 (4.60-6.20); Red Cell Distribution Width 13.8 % (11.5-17.5); White Blood Count 6.3 K/mm3 (4.8-10.8)
--- NOTE | 2018-09-19 08:42 | H&P/Discharge Summary ---
General - General Admission date:: 09/18/18 Discharge date: 09/19/18 *Admission Date: 09/18/18 *Chief complaint: Left lower quadrant abdominal pain *History of present illness: 68-year-old white male with history of COPD who presented to the emergency department with a 2-day history of increasing left lower quadrant abdominal pain, increasing dyspepsia and some burping. Denied diarrhea, fevers or vomiting. ER work-up consisted of labs which were essentially unremarkable and a CT scan of his abdomen which showed uncomplicated diverticulitis, and patient was admitted overnight for observation and further evaluation. [facility] History I have reviewed the patient's past medical history: Yes Medical History: Reports:: Chronic Obstructive Pulmonary Disease (COPD), Coronary Artery Disease, Hyperlipidemia, Hypertension, Internal Pacemaker Denies:: Cancer, Diabetes Mellitus Type 1, Diabetes Mellitus Type 2, MRSA *Have you ever received a pneumonia vaccine?: Yes *Have you received a flu vaccine this season?: Yes Other Surgeries: Yes: CABG, Cardiac Catheterization, Coronary Stent, Hernia Repair, Pacemaker Amputation: No Fractures: No - *Social History Educational Level: Completed High School Smoking Status: Former smoker Tobacco Type: cigarettes # Packs/Day (cigarettes): 1 Alcohol Intake: never Alcohol Intake Frequency:: other Substance Use Type: denies use *Occupational Status:: disabled Household Members: spouse *Travel in the last 8 weeks: None - Psychiatric History Expresses thoughts of harming self/others: None Suicide Plan Description: No Plan Family Hx:: Cancer, Coronary Artery Disease, Diabetes, Heart Attack, Hyperlipidemia, Hypertension, Stroke, Other Review of Systems - Review of Systems Review of systems:: pertinent systems reviewed and negative unless documented below GI noted above. Cardiac negative for chest pain or palpitations. Pulmonary positive for his chronic shortness of air, denies recent sputum changes or hemoptysis. Of note recently was treated for acute bronchopneumonia. Skin negative for rash. Joints negative for increasing pain. Neurology negative for mental status changes or confusion. - *Neurologic Denies seizure-like activity Exam Vital signs and Labs for Last 24 Hours: Temp Pulse Resp BP Pulse Ox 97.6 F 61 18 116/54 L 95 09/19/18 04:00 09/19/18 04:00 09/19/18 04:00 09/19/18 04:00 09/19/18 07:31 Laboratory Results - last 24 hr 09/18/18 18:50: WBC 12.1 H, RBC 5.62, Hgb 14.8, Hct 46.7, MCV 83.0, MCH 26.4 L, MCHC 31.8, RDW 13.5, Plt Count 312, MPV 6.7 L, Neut % (Auto) 67.8, Lymph % (Auto) 24.7, [place] % (Auto) 4.9, Eos % (Auto) 2.2, Baso % (Auto) 0.4, Neut # (Aut o) 8.2 H, Lymph # (Auto) 3.0, [place] # (Auto) 0.6, Eos # (Auto) 0.3, Baso # (Auto) 0.1 09/18/18 18:50: Sodium 140, Potassium 3.9, Chloride 104, Carbon Dioxide 27, An ion Gap 12.9, BUN 21 H, Creatinine 1.35 H, Estimated Creat Clear 48, Estimated GFR 52 L, Est GFR ( Amer) 63, Glucose 140 H, Calcium 9.1, Troponin I < 0.02 09/18/18 18:50: ESR 15 09/18/18 18:50: Total Bilirubin 0.4, Direct Bilirubin 0.1, Indirect Bilirubin 0.3, AST 16, ALT 15, Alkaline Phosphatase 105, C-Reactive Protein 6.8 H, Total Protein 7.1, Albumin 2.9 L, Amylase 67, Lipase 104 09/18/18 20:31: Urine Color Yellow, Urine Appearance Clear, Urine pH 6.0, Ur Specific [place] 1.020, Urine Protein Negative, Urine Glucose (UA) Negative, Urine Ketones Negative, Urine Blood Negative, Urine Nitrate Negative, Urine Bilirubin Negative, Urine Urobilinogen 0.2, Ur Leukocyte Esterase Negative, Urine WBC Occasional, Ur Squamous Epith Cells Occasional, Urine Bacteria Trace, Urine Sperm 1+ 09/18/18 23:00: Lactate 1.1 09/19/18 06:32: WBC 6.3 D, RBC 4.55 L, Hgb 12.0 L D, Hct 38.4 L, MCV 84.4, MCH 26.2 L, MCHC 31.1 L, RDW 13.8, Plt Count 220 D, MPV 7.0 L, Neut % (Auto) 47.8, Lymph % (Auto) 41.7, [place] % (Auto) 7.5, Eos % (Auto) 2.5, Baso % (Auto) 0.5, Neut # (Auto) 3.0, Lymph # (Auto) 2.6, [place] # (Auto) 0.5, Eos # (Auto) 0.2, Baso # (Auto) 0.0 09/19/18 06:32: Sodium 141, Potassium 4.1, Chloride 110 H, Carbon Dioxide 26, Anion Gap 9.1, BUN 21 H, Creatinine 1.35 H, Estimated Creat Clear 48, Estimated GFR 52 L, Est GFR ( Amer) 63, Glucose 75 D, Calcium 8.0 L D I & O for Last 24 hours: Intake & Output 09/16/18 09/17/18 09/18/18 09/19/18 11:59 11:59 11:59 11:59 Intake Total 1815 / 1815 Balance 181 / 1815 Weight 144 lb 5 oz Narrative: Patient alert, oriented x3. Pleasant, talkative. Oropharynx clear. No JVD. Cranial nerves intact. Lungs have rhonchi throughout but good air movement and symmetric air exchange. Heart rate regular without murmurs. Abdomen soft and nontender. Patient reports he feels vastly improved over admission. No extremity edema or clubbing. Hospital Course Hospital Course: Patient was admitted, treated with IV fluids and intravenous antibiotics for diverticulitis. CT of abdomen report as noted. Does show a new right lower lung nodule which is suspicious for malignancy which was not seen on previous CT scans of chest-CT of chest recommended. Patient was informed of this and we discussed need for follow-up. Patient tolerated supper last night and breakfast well this morning. He will be discharged home on p.o. antibiotics and p.o. prednisone, we will have short-term follow-up in our office in 2 days to evaluate ongoing abdominal pain issues and to set up CT of chest and referral to CT surgery or pulmonary for this new/suspicious lung nodule. Results Labs on day of discharge: Labs from last 24 hours 09/19/18 09/19/18 09/18/18 06:32 06:32 23:00 WBC 6.3 D RBC 4.55 L Hgb 12.0 L D Hct 38.4 L MCV 84.4 MCH 26.2 L MCHC 31.1 L RDW 13.8 Plt Count 220 D MPV 7.0 L Neut % (Auto) 47.8 Lymph % (Auto) 41.7 [place] % (Auto) 7.5 Eos % (Auto) 2.5 Baso % (Auto) 0.5 Neut # (Auto) 3.0 Lymph # (Auto) 2.6 [place] # (Auto) 0.5 Eos # (Auto) 0.2 Baso # (Auto) 0.0 ESR Sodium 141 Potassium 4.1 Chloride 110 H Carbon Dioxide 26 Anion Gap 9.1 BUN 21 H Creatinine 1.35 H Estimated Creat Clear 48 Estimated GFR 52 L Est GFR ( Amer) 63 Glucose 75 D Lactate 1.1 Calcium 8.0 L D Total Bilirubin Direct Bilirubin Indirect Bilirubin AST ALT Alkaline Phosphatase Troponin I C-Reactive Protein Total Protein Albumin Amylase Lipase Urine Color Urine Appearance Urine pH Ur Specific [place] Urine Protein Urine Glucose (UA) Urine Ketones Urine Blood Urine Nitrate Urine Bilirubin Urine Urobilinogen Ur Leukocyte Esterase Urine WBC Ur Squamous Epith Cells Urine Bacteria Urine Sperm 09/18/18 09/18/18 09/18/18 20:31 18:50 18:50 WBC RBC Hgb Hct MCV MCH MCHC RDW Plt Count MPV Neut % (Auto) Lymph % (Auto) [place] % (Auto) Eos % (Auto) Baso % (Auto) Neut # (Auto) Lymph # (Auto) [place] # (Auto) Eos # (Auto) Baso # (Auto) ESR 15 Sodium Potassium Chloride Carbon Dioxide Anion Gap BUN Creatinine Estimated Creat Clear Estimated GFR Est GFR ( Amer) Glucose Lactate Calcium Total Bilirubin 0.4 Direct Bilirubin 0.1 Indirect Bilirubin 0.3 AST 16 ALT 15 Alkaline Phosphatase 105 Troponin I C-Reactive Protein 6.8 H Total Protein 7.1 Albumin 2.9 L Amylase 67 Lipase 104 Urine Color Yellow Urine Appearance Clear Urine pH 6.0 Ur Specific [place] 1.020 Urine Protein Negative Urine Glucose (UA) Negative Urine Ketones Negative Urine Blood Negative Urine Nitrate Negative Urine Bilirubin Negative Urine Urobilinogen 0.2 Ur Leukocyte Esterase Negative Urine WBC Occasional Ur Squamous Epith Cells Occasional Urine Bacteria Trace Urine Sperm 1+ 09/18/18 09/18/18 18:50 18:50 WBC 12.1 H RBC 5.62 Hgb 14.8 Hct 46.7 MCV 83.0 MCH 26.4 L MCHC 31.8 RDW 13.5 Plt Count 312 MPV 6.7 L Neut % (Auto) 67.8 Lymph % (Auto) 24.7 [place] % (Auto) 4.9 Eos % (Auto) 2.2 Baso % (Auto) 0.4 Neut # (Auto) 8.2 H Lymph # (Auto) 3.0 [place] # (Auto) 0.6 Eos # (Auto) 0.3 Baso # (Auto) 0.1 ESR Sodium 140 Potassium 3.9 Chloride 104 Carbon Dioxide 27 Anion Gap 12.9 BUN 21 H Creatinine 1.35 H Estimated Creat Clear 48 Estimated GFR 52 L Est GFR ( Amer) 63 Glucose 140 H Lactate Calcium 9.1 Total Bilirubin Direct Bilirubin Indirect Bilirubin AST ALT Alkaline Phosphatase Troponin I < 0.02 C-Reactive Protein Total Protein Albumin Amylase Lipase Urine Color Urine Appearance Urine pH Ur Specific [place] Urine Protein Urine Glucose (UA) Urine Ketones Urine Blood Urine Nitrate Urine Bilirubin Urine Urobilinogen Ur Leukocyte Esterase Urine WBC Ur Squamous Epith Cells Urine Bacteria Urine Sperm DS: Diagnosis - Discharge Diagnosis (1) Lung nodule Status: Acute (2) Panlobular emphysema Status: Chronic (3) Diverticulitis Status: Acute Discharge Plan - Patient Discharge Instructions ACTIVITY: Continue current activity DIET: continue same diet Patient Instructions: Pneumonia-Adult, Diverticulitis, Aortic Aneurysm, Pneumococcal Vaccine, DI for Pneumonia -- Adult, DI for Diverticulitis, DI for Diverticulosis - Follow up Plan Follow up with: Tere Germain APRN [Nurse Practitioner] - 09/21/18 Disposition: Home, Self-Long-Term Medications: Home Medications Medication Instructions Recorded Confirmed Type atorvastatin 80 mg tablet 80 mg PO DAILY tab 06/18/17 09/19/18 History esomeprazole magnesium 40 mg 40 mg PO DAILY cap 06/18/17 09/19/18 History capsule,delayed release ezetimibe 10 mg tablet 10 mg PO DAILY tab 06/18/17 09/19/18 History aspirin 81 mg tablet,delayed 81 mg PO DAILY 11/01/17 09/19/18 History release ticagrelor 90 mg tablet 90 mg PO BID 02/04/18 09/19/18 History Carvedilol [Carvedilol 25mg Tab] 25 mg PO BID 09/18/18 09/19/18 History Hydrocod/Acet 5/325 mg [[place] 1 tab PO TID 09/18/18 09/19/18 History 5/325mg tablet] Sacubitril/Valsartan [Entresto] 1 tab PO BID 09/18/18 09/19/18 History Gabapentin [Gabapentin 300mg Cap] 300 mg PO TID 09/19/18 09/19/18 History Umeclidinium Brm/Vilanterol Tr 1 puff INHALATION DAILY 09/19/18 09/19/18 History [Anoro Ellipta 62.5-25 Mcg INH] levoFLOXacin [Levaquin 500mg 500 mg PO DAILY #7 tab 09/19/18 Rx tab] metroNIDAZOLE [Flagyl 500mg 500 mg PO TID #21 tab 09/19/18 Rx Tablet] predniSONE [Deltasone 20mg 20 mg PO BID 7 Days #14 tab 09/19/18 Rx tablet] Prescriptions/Medication Reconciliation: New predniSONE [Deltasone 20mg tablet] 20 mg PO BID 7 Days #14 tab metroNIDAZOLE [Flagyl 500mg Tablet] 500 mg PO TID #21 tab levoFLOXacin [Levaquin 500mg tab] 500 mg PO DAILY #7 tab Continued ezetimibe 10 mg tablet 10 mg PO DAILY tab ticagrelor 90 mg tablet 90 mg PO BID atorvastatin 80 mg tablet 80 mg PO DAILY tab esomeprazole magnesium 40 mg capsule,delayed release 40 mg PO DAILY cap aspirin 81 mg tablet,delayed release 81 mg PO DAILY Sacubitril/Valsartan [Entresto] 1 tab PO BID Carvedilol [Carvedilol 25mg Tab] 25 mg PO BID Hydrocod/Acet 5/325 mg [[place] 5/325mg tablet] 1 tab PO TID Gabapentin [Gabapentin 300mg Cap] 300 mg PO TID Umeclidinium Brm/Vilanterol Tr [Anoro Ellipta 62.5-25 Mcg INH] 1 puff INHALATION DAILY
== END 2018-09-19 10:14 | disposition home or self-care (01) | DRG 392 ==
LOC: ER 18:46 → 2ND 22:41
PROVIDERS: ADMIT Emergency Medicine; ATTEND Internal Medicine Adolescent Medicine
CPT/HCPCS: 36415; 71020; 71046; 74177; 80048; 80076; 81001; 82150; 83605; 83690; 84484; 85025; 85651; 86140; 87040; 87070; 87205; 93005; 96365; 96366; 96375; 99284; J1956; J2405; Q9967

== ENCOUNTER → 2019-04-03 14:55 | Outpatient (CLI) | payer MEDICARE, OTHER, SELFPAY ==
--- NOTE | 2019-04-03 14:59 | XR_ITS ---
PROCEDURE: XR CHEST 2V CLINICAL HISTORY: COUGH Cough, smoker, heart disease COMPARISON: Chest from 09/18/2018 XR CHEST 2V from 02/16/2019 CT ANGIO CHEST from 03/07/2019 XR CHEST 2V from 03/07/2019 FINDINGS: Prior CABG with bipolar pacemaker present the left subclavian approach. Right hilar mass with right lower lobe mass/postobstructive changes once again noted. The consolidation in the right lower lobe may be slightly worse. There is COPD. Left lung is clear. No acute bony abnormalities. IMPRESSION: Right hilar and right lower lobe mass with slight worsening consolidation in the right lower lobe Dictated by: Jaun Kumar MD 04/03/2019 16:33 Electronically signed by Jaun Kumar MD in [place] 04/03/2019 16:33
== END ==
PROVIDERS: PCP Internal Medicine Adolescent Medicine; Visit Provider Internal Medicine Adolescent Medicine
DX: R05 Cough (principal)
CPT/HCPCS: 71046

== ENCOUNTER → 2019-05-09 15:16 | Outpatient (CLI) | payer MEDICARE, OTHER, SELFPAY ==
--- NOTE | 2019-05-09 15:26 | ECG_ITS ---
APPROVED REPORT Exam: Resting ECG HR:79 bpm ECG Measurements Heart Rate 79 AXES GA 150 P 59 QRSd 84 QRS 97 QT 350 T 134 QTc 401 <Conclusion> Sinus rhythm with premature ventricular complexes or fusion complexes Rightward axis Poor R Wave Progression T wave abnormality, consider inferolateral ischemia Abnormal ECG Electronically signed by : Guido Starks, 05/10/2019 08:58:35
== END ==
PROVIDERS: PCP Internal Medicine Adolescent Medicine; Visit Provider Internal Medicine Adolescent Medicine
DX: G89.3 Neoplasm related pain (acute) (chronic) (principal)
CPT/HCPCS: 93005

== ENCOUNTER → 2019-11-03 12:39 | Outpatient (CLI) | payer MEDICARE, OTHER, SELFPAY ==
--- NOTE | 2019-11-03 13:15 | XR_ITS ---
PROCEDURE: XR CHEST PORTABLE CLINICAL HISTORY: BRONCHOPNEUMONIA,EXPOSURE TO COVID 19 COMPARISON: CR XR CHEST 2V from 02/16/[address] ANGIO CHEST from 03/07/2019 CR XR CHEST 2V from 03/07/2019 CR XR CHEST 2V from 04/03/2019 FINDINGS: Prior CABG. Bipolar pacemaker is present from left subclavian approach. There is cardiomegaly without failure. Right subclavian MediPort catheter is present with tip in the region the SVC. There are chronic interstitial changes. Increased density is present in the right infrahilar region. This has improved somewhat since 04/03/2019 however, there is still some asymmetric density in this area. No acute bony abnormalities. IMPRESSION: Chronic interstitial lung disease with increased density in the right infrahilar region which could be due to residual or recurrence pneumonia or mass. Chest CT with contrast may provide further evaluation. Dictated by: Jaun Kumar MD 11/03/2019 15:11 Jaun Kumar MD in [place] 11/03/2019 15:11
[2019-11-03 14:03] LABS: Adenovirus,PCR Not Detected (NotDetected); Bordetella Pertussis Not Detected (NotDetected); Chlamydophila Pneumoniae, PCR Not Detected (NotDetected); Coronavirus 229E Not Detected (NotDetected); Coronavirus NL63 Not Detected (NotDetected); Coronavirus OC43 Not Detected (NotDetected); Coronovirus HKU1,PCR Not Detected (NotDetected); Human Metapneumovirus Not Detected (NotDetected); Influenza A, PCR Not Detected (NotDetected); Influenza AH1, 2009 Not Detected (NotDetected); Influenza AH1, PCR Not Detected (NotDetected); Influenza AH3,PCR Not Detected (NotDetected); Influenza B, PCR Not Detected (NotDetected); Mycoplasma Pneumoniae, PCR Not Detected (NotDetected); Parainfluenza 1, PCR Not Detected (NotDetected); Parainfluenza 2, PCR Not Detected (NotDetected); Parainfluenza 3, PCR Not Detected (NotDetected); Parainfluenza 4, PCR Not Detected (NotDetected); Respiratory Syncytial Virus Not Detected (NotDetected)
[2019-11-03 14:18] LABS: Alanine Aminotransferase 10 U/L (12-78); Albumin Level 3.3 g/dl (3.5-5.0); Alkaline Phosphatase 111 U/L (38-126); Aspartate Amino Transferase 21 U/L (17-59); Bilirubin,Total 0.7 mg/dl (0.2-1.3); Blood Urea Nitrogen 20 mg/dl (9-20); Calcium 9.1 mg/dl (8.4-10.2); Carbon Dioxide 23 mmol/L (22.0-30.0); Chloride 108 mmol/L (98-107); Estimated Glomerular Filt Rate 60 ml/min (>60); GFR (African American) 72 ML/MIN (>60); Globulin 3.3 g/dL (1.3-3.2); Glucose 132 mg/dl (74-100); Sodium 140 mmol/L (136-145); Total Protein,Serum 6.6 g/dl (6.3-8.2)
[2019-11-03 14:19] LABS: Basophils % 0.1 % (0.1-2.0); Eosinophils # 0.1 K/mm3 (0.0-0.4); Eosinophils % 0.4 % (0.1-12.0); Hematocrit 31.3 % (42.0-52.0); Hemoglobin 9.6 g/dL (14.1-18.0); Lymphocytes # 1.6 K/mm3 (0.7-4.5); Lymphocytes % 9.4 % (10-50); Mean Corpuscular HGB Conc 30.5 g/dL (31.8-35.4); Mean Corpuscular Hemoglobin 24.2 pg (27.0-31.2); Mean Corpuscular Volume 79.4 fl (80-94); Mean Platelet Volume 8.1 fl (7.4-10.4); Monocytes % 6.1 % (1.7-9.3); Neutrophils # 14.2 K/mm3 (1.8-7.8); Neutrophils % 83.9 % (37.0-80.0); Platelet Count 233 K/mm3 (142-424); Red Blood Count 3.94 M/mm3 (4.60-6.20); Red Cell Distribution Width 19.6 % (11.5-17.5); White Blood Count 16.9 K/mm3 (4.8-10.8)
[2019-11-03 14:21] LABS: MANUAL DIFFERENTIAL MANUAL DIFFERENTIAL (MANUAL DIFF)
[2019-11-03 14:51] LABS: Anisocytosis 1+; Eosinophils % 1 % (0-3); Hypochromasia 1+; Lymphocytes % 19 % (10-50); Monocytes % 1 % (2-9); Neutrophils % 79 % (42-76); Platelet Estimate Normal; Poikilocytosis 1+; Total Cells Counted 100
[2019-11-03 16:00] LABS: Rhinovirus/Enterovirus Detected (NotDetected)
[2019-11-04 13:19] LABS: Covid-19 Nasal PCR Sendout Lex Not Detected
== END ==
PROVIDERS: PCP Internal Medicine Adolescent Medicine; Visit Provider Internal Medicine Adolescent Medicine
DX: Z03.818 Encounter for observation for suspected exposure to other biological agents ruled out (principal); B34.1 Enterovirus infection, unspecified; J18.0 Bronchopneumonia, unspecified organism
CPT/HCPCS: 36415; 71045; 80053; 85007; 85025; 87486; 87581; 87633; 87798; U0004

== ENCOUNTER 2019-11-03 21:35 | Observation (INO) | payer MEDICARE, OTHER, SELFPAY ==
[2019-11-03 21:51] VITALS: BP 94/47; PULSE 79; RESP 22; TEMP 37.1; O2SAT 96; BMI 20.7
--- NOTE | 2019-11-03 22:04 | CT_ITS ---
PROCEDURE: CT ANGIO CHEST CLINCIAL INDICATION: cough, cancer, short of breath COMPARISON: [facility] from 06/26/[address] ANGIO CHEST from 03/07/2019 TECHNIQUE: IV Contrast: 70ML OPTIRAY 350 Axial images obtained with sagittal and coronal reformats. All CT scans at the facility use one or more dose reduction, viz: automated exposure control, ma/kV adjustment per patient size (including targeted exams where dose is matched to indication, i.e. head), or iterative reconstruction technique. FINDINGS: HEART AND MEDIASTINAL STRUCTURES: Or no evidence of aortic aneurysm or dissection. There has been a prior CABG. There is diffuse coronary artery calcification. No evidence of pulmonary embolus. No mediastinal or hilar mass or adenopathy. Previously noted precarinal enlarged lymph node has improved decreasing in size. Right hilar adenopathy is also improved. There is some mild residual increased density in the right perihilar region. The bronchial thickening in the right hilar region has also improved. LUNGS AND PLEURAL SPACES: Centrilobular and paraseptal emphysema. Pulmonary fibrotic changes are present with scattered areas of scarring. The right lower lobe mass has markedly decreased in size. Many of the previously noted pulmonary nodules are stable or have decreased in size. There is 1 parenchymal opacity in the right upper lobe inferiorly which has developed 54 series 3. This measures 13 mm. There is an area of atelectasis or fibrosis in the right upper lobe medially image 54 series 3. Small area of atelectasis or infiltrate is present in the left upper lobe anteriorly not readily apparent on the previous exam. Motion artifact does somewhat obscure fine detail. There are pulmonary fibrotic changes present. No effusions. No acute bony anomalies. There is bronchial wall thickening with bronchial filling and interstitial prominence mainly in the right lower lobe with interval improvement. BONY STRUCTURES: No acute bony abnormalities apparent. UPPER ABDOMEN: Mild thickening of the distal esophagus nonspecific. There is a 13 mm enhancing lesion in the left hepatic lobe segment 4B. This could be due to metastatic focus or a hemangioma. There is a 4 cm cyst in the right kidney ADDITIONAL FINDINGS: No other significant abnormalities. IMPRESSION: 1. No evidence of pulmonary embolus. 2. Emphysema with pulmonary fibrosis. Spiculated peripheral right lower lobe mass suspicious for bronchogenic neoplasm appears smaller. Interval decrease in size of mediastinal and hilar nodes. Multiple small bilateral lung nodules suspicious for metastasis most of which are unchanged. One new opacity is present in the right upper lobe laterally and could be due to an area of infiltrate or new nodule. 3. Diffuse bronchial wall thickening bronchial filling interstitial prominence mainly within the right lower lobe with some improvement and could be related to lymphangitic spread of tumor or infection. 4. 13 mm enhancing lesion left hepatic lobe which may be due to a hemangioma, transient hepatic attenuation, or neoplasm Dictated by: Jaun Kumar MD 11/04/2019 06:30 Jaun Kumar MD in [place] 11/04/2019 06:31
--- NOTE | 2019-11-03 22:07 | HMH.EDGENADL ---
ED Disposition Clinical Impression: Pneumonia Qualifiers: Pneumonia type: due to unspecified organism Laterality: right Lung location: lower lobe of lung Qualified Code(s): J18.9 - Pneumonia, unspecified organism COPD (chronic obstructive pulmonary disease) Qualifiers: COPD type: chronic bronchitis Chronic bronchitis type: simple Qualified Code(s): J41.0 - Simple chronic bronchitis Lung cancer Qualifiers: Laterality: right Lung location: lower lobe of lung Qualified Code(s): C34.31 - Malignant neoplasm of lower lobe, right bronchus or lung Disposition: Admitted as Observation Condition on Discharge: Fair Time of Disposition: 00:14 - Critical Care Critical Care Time: No Attestation: On 11/03/19, the high probability of a clinically significant, sudden or life threatening deterioration of the following system(s) required my full and direct attention, intervention and personal management. The time I documented below is in addition to time spent performing reported procedures but includes the following listed in this critical care notation. Medical Decision Making - Medical Records Medical records reviewed: Yes: I reviewed the patient's medical records. - Bubba Inquiry Pt receiving controlled substance: No Vital Signs: 11/03/19 21:51 11/03/19 23:07 11/03/19 23:14 Temperature 98.8 F Temperature Source Oral Pulse Rate 87 Pulse Rate [Right] 79 96 H Respiratory Rate 22 Blood Pressure [Right Arm] 94/47 L 90/58 L Blood Pressure Mean [Right Arm] 62 68 Blood Pressure Source [Right Arm] Automatic Cuff Blood Pressure Position [Right Arm] Sitting 02 Sat by Pulse Oximetry 96 97 Oxygen Delivery Method Room Air Nasal Cannula Oxygen Flow Rate (LPM) 2 11/03/19 23:22 11/03/19 23:30 Temperature Temperature Source Pulse Rate Pulse Rate [Right] 76 77 Respiratory Rate Blood Pressure [Right Arm] 90/58 L 92/57 L Blood Pressure Mean [Right Arm] 68 68 Blood Pressure Source [Right Arm] Automatic Cuff Blood Pressure Position [Right Arm] Sitting 02 Sat by Pulse Oximetry 94 L 92 L Oxygen Delivery Method Nasal Cannula Oxygen Flow Rate (LPM) - Lab Data Lab Results 11/03/19 22:05: WBC 19.5 H, RBC 4.24 L, Hgb 10.3 L, Hct 33.3 L, MCV 78.6 L, MCH 24.3 L, MCHC 30.9 L, RDW 19.7 H, Plt Count 244, MPV 7.4, Neut % (Auto) 93.5 H, Lymph % (Auto) 3.4 L, [place] % (Auto) 2.9, Eos % (Auto) 0.1, Baso % (Auto) 0.1, Neut # (Auto) 18.3 H, Lymph # (Auto) 0.7, [place] # (Auto) 0.6, Eos # (Auto) 0.0, Baso # (Auto) 0.0, Total Counted 100, Neutrophils % (Manual) 98 H, Lymphocytes % (Manual) 2 L, Platelet Estimate Normal, Hypochromasia 1+, Microcytosis 1+, Ovalocytes 1+ 11/03/19 22:05: Sodium 140, Potassium 4.5, Chloride 109 H, Carbon Dioxide 21 L, Anion Gap 14.5, BUN 23 H, Creatinine 1.30 H, Estimated Creat Clear 53, Estimated GFR 55 L, Est GFR ( Amer) 66, Glucose 144 H, Calcium 9.6 11/03/19 22:05: Lactate 1.4 11/03/19 22:40: Specimen Source Right brachial, O2 % Room air, ABG pH 7.42, ABG pCO2 25.5 L, ABG pO2 71.3 L, ABG HCO3 16.1 L, ABG Total CO2 16.9 L, ABG O2 Saturation 94, ABG Base Excess -8.4 L, Jaun Test Acceptable Result diagrams: 11/03/19 22:05 11/03/19 22:05 Orders (Tests/Meds): ED MEDICATIONS Generic Name Dose Route Start Last Admin Trade Name Otf PRN Reason Stop Dose Admin Sodium Chloride 1,000 mls @ 999 mls/hr 11/03/19 22:15 11/03/19 22:16 Sod Chlor 0.9% 1000ml Bag IV 11/03/19 23:15 999 mls/hr .Q1H1M ASHIA Administration Sodium Chloride 1,000 mls @ 150 mls/hr 11/04/19 00:15 11/04/19 00:06 Sod Chlor 0.9% 1000ml Bag IV 12/04/19 00:14 150 mls/hr .Q6H40M ASHIA Administration Ioversol 70 ml 11/03/19 23:51 11/03/19 23:52 Rad-Optiray 350 100ml Vial IV 11/03/19 23:52 70 ml ONCE ONE Administration Protocol Sodium Chloride 40 ml 11/03/19 23:51 11/03/19 23:52 Rad-Ns 50ml Vial IV 11/03/19 23:52 40 ml ONCE ONE Administration Sodium Chloride 10 ml 11/03/19 23
[2019-11-03 22:22] LABS: Basophils % 0.1 % (0.1-2.0); Eosinophils % 0.1 % (0.1-12.0); Hematocrit 33.3 % (42.0-52.0); Hemoglobin 10.3 g/dL (14.1-18.0); Lymphocytes # 0.7 K/mm3 (0.7-4.5); Lymphocytes % 3.4 % (10-50); Mean Corpuscular HGB Conc 30.9 g/dL (31.8-35.4); Mean Corpuscular Hemoglobin 24.3 pg (27.0-31.2); Mean Corpuscular Volume 78.6 fl (80-94); Mean Platelet Volume 7.4 fl (7.4-10.4); Monocytes # 0.6 K/mm3 (0.1-1.0); Monocytes % 2.9 % (1.7-9.3); Neutrophils # 18.3 K/mm3 (1.8-7.8); Neutrophils % 93.5 % (37.0-80.0); Platelet Count 244 K/mm3 (142-424); Red Blood Count 4.24 M/mm3 (4.60-6.20); Red Cell Distribution Width 19.7 % (11.5-17.5); White Blood Count 19.5 K/mm3 (4.8-10.8)
[2019-11-03 22:23] LABS: Chloride 109 mmol/L (98-107)
[2019-11-03 22:24] LABS: Potassium 4.5 mmoL/L (3.5-5.1); Sodium 140 mmol/L (136-145)
[2019-11-03 22:27] LABS: Anion Gap 14.5 mEq/L (5-15); Blood Urea Nitrogen 23 mg/dl (9-20); Calcium 9.6 mg/dl (8.4-10.2); Carbon Dioxide 21 mmol/L (22.0-30.0); Creatinine Clearance Estimated 53 mL/min (50-200); Estimated Glomerular Filt Rate 55 ml/min (>60); GFR (African American) 66 ML/MIN (>60); Glucose 144 mg/dl (74-100); Lactic Acid 1.4 mmol/L (0.7-2.1); MANUAL DIFFERENTIAL MANUAL DIFFERENTIAL (MANUAL DIFF)
[2019-11-03 22:42] LABS: ABG Base Excess -8.4 mmol/L (-2.4-2.3); ABG HCO3 16.1 mmhg (22.0-26.0); ABG Oxygen Saturation 94 % (90-100); ABG PCO2 25.5 mmhg (35.0-45.0); ABG PH 7.42 mmol/L (7.35-7.45); ABG PO2 71.3 mmhg (80-100); ABG TCO2 16.9 mmhg (23-27)
[2019-11-03 22:43] LABS: Allen's Test Acceptable; Oxygen ROOM AIR %; Source Right Brachial
[2019-11-03 22:49] LABS: Lymphocytes % 2 % (10-50); Neutrophils % 98 % (42-76); Platelet Estimate Normal; Total Cells Counted 100
[2019-11-03 22:50] LABS: Hypochromasia 1+; Microcytosis 1+; Ovalocytes 1+
[2019-11-03 23:07] VITALS: BP 90/58; PULSE 96; O2SAT 97
[2019-11-03 23:14] VITALS: PULSE 87
[2019-11-03 23:22] VITALS: BP 90/58; PULSE 76; O2SAT 94
[2019-11-03 23:30] VITALS: BP 92/57; PULSE 77; O2SAT 92
--- NOTE | 2019-11-03 23:36 | PC.NURSE ---
Dr Mercedes speaking with Dr Izaguirre at this time
[2019-11-04] VITALS (19 sets, daily range): BP systolic 87–112; BP diastolic 49–68; PULSE 59–85; RESP 20–24; TEMP 36.4–37; O2SAT 93–99; BMI 20.9; BMI 21.6
--- NOTE | 2019-11-04 00:28 | PC.NURSE ---
called report to S Call Rn.
--- NOTE | 2019-11-04 00:39 | PC.NURSE ---
Yolanda came to [facility] pick[facility] pt to transfer to med surg.
--- NOTE | 2019-11-04 00:41 | PC.NURSE ---
patient to floor via stretcher.
--- NOTE | 2019-11-04 01:05 | PC.NURSE ---
Pt's room air sat in ER = 94%.
--- NOTE | 2019-11-04 01:58 | PC.NURSE ---
He states he does not know the names of his medications because there are too many. He stated that his can bring his medications tomorrow so the med rec can be completed. He denies pain. He reports SOA. He continues on 2LPM n/c. He has an intermittent non-productive cough. He is independent with ADLs.
[2019-11-04 07:10] LABS: Lymphocytes # 0.4 K/mm3 (0.7-4.5); Monocytes # 0.2 K/mm3 (0.1-1.0)
[2019-11-04 07:22] LABS: Chloride 114 mmol/L (98-107); Potassium 4.5 mmoL/L (3.5-5.1); Sodium 140 mmol/L (136-145)
[2019-11-04 07:25] LABS: Anion Gap 11.5 mEq/L (5-15); Blood Urea Nitrogen 24 mg/dl (9-20); Carbon Dioxide 19 mmol/L (22.0-30.0); Creatinine Clearance Estimated 59 mL/min (50-200); Estimated Glomerular Filt Rate 66 ml/min (>60); GFR (African American) 80 ML/MIN (>60); Glucose 182 mg/dl (74-100)
[2019-11-04 07:42] LABS: Basophils % 0.1 % (0.1-2.0); Lymphocytes % 4.1 % (10-50); Mean Corpuscular HGB Conc 30.3 g/dL (31.8-35.4); Mean Corpuscular Volume 79.4 fl (80-94); Mean Platelet Volume 7.9 fl (7.4-10.4); Neutrophils # 10.1 K/mm3 (1.8-7.8); Neutrophils % 93.7 % (37.0-80.0); Platelet Count 207 K/mm3 (142-424); Red Blood Count 3.28 M/mm3 (4.60-6.20); Red Cell Distribution Width 19.4 % (11.5-17.5); White Blood Count 10.7 K/mm3 (4.8-10.8)
[2019-11-04 07:46] LABS: Calcium 8.1 mg/dl (8.4-10.2)
[2019-11-04 07:48] LABS: Hemoglobin 7.9 g/dL (14.1-18.0)
[2019-11-04 07:49] LABS: MANUAL DIFFERENTIAL MANUAL DIFFERENTIAL (MANUAL DIFF)
--- NOTE | 2019-11-04 08:02 | HMH.HP ---
*Admission Date: 11/04/19 *Chief complaint: SOA *History of present illness: Mr. Greene is a 69-year-old male with history of lung cancer, COPD/emphysema, extensive smoking history, and congestive heart failure who presented to the ER last night due to worsening shortness of breath and tachypnea. States he was around his granddaughter this past week and she was sick with a cold. His symptoms began over the weekend and have gotten progressively worse. He does not wear oxygen at home but was found to be tachypneic in order to maintain sats greater than 90%. Started on oxygen with improvement in his respiratory distress. Imaging and labs obtained concerning for pneumonia. Comprehensive panel performed in the clinic prior to the ER showing positive rhinovirus results. COVID was pending. Blood pressure was noted to be soft however this is not inconsistent with his normal blood pressure in the office. On assessment this morning he feels little bit more comfortable on 2 L nasal cannula although his nose is dry. Had significant drop in his hemoglobin overnight with fluid resuscitation. Remains afebrile and hemodynamically stable. White count has improved since initiating antibiotics. Denies any chest pain, nausea, vomiting. Urine output normal. Afebrile. [facility] History I have reviewed the patient's past medical history: Yes Medical History: Reports:: Atrial Fibrillation, Cancer (Lung), Chronic Obstructive Pulmonary Disease (COPD), Coronary Artery Disease, Hyperlipidemia, Hypertension, Internal Pacemaker Denies:: Diabetes Mellitus Type 1, Diabetes Mellitus Type 2, MRSA *Have you ever received a pneumonia vaccine?: Yes *Have you received a flu vaccine this season?: No Other Medical History: Reports: Arthritis Other Surgeries: Yes: CABG, Cardiac Catheterization, Coronary Stent, Hernia Repair, Pacemaker Amputation: No Fractures: No - *Social History Last grade of school completed: High school graduate Smoking Status: Former smoker Tobacco Type: cigarettes # Packs/Day (cigarettes): 1 Alcohol Intake: never Alcohol Intake Frequency:: other Substance Use Type: denies use *Occupational Status:: retired, disabled Housing: house Household Members: significant other *Travel in the last 8 weeks: None Family Hx:: Cancer, Coronary Artery Disease, Diabetes, Heart Attack, Hyperlipidemia, Hypertension, Stroke, Other Review of Systems - Review of Systems Review of systems:: pertinent systems reviewed and negative unless documented below (14 point review of systems performed, pertinent positives and negatives as per HPI) - *Neurologic Reports weakness, Denies headache(s), Denies fainting Meds Home Medications Medication Instructions Recorded Confirmed Type atorvastatin 80 mg tablet 80 mg PO DAILY tab 06/18/17 11/04/19 History esomeprazole magnesium 40 mg 40 mg PO DAILY cap 06/18/17 11/03/19 History capsule,delayed release ezetimibe 10 mg tablet 10 mg PO DAILY tab 06/18/17 11/03/19 History aspirin 81 mg tablet,delayed 81 mg PO DAILY 11/01/17 11/04/19 History release carvediloL [Carvedilol 25mg Tab] 25 mg PO BID 09/18/18 11/04/19 History Umeclidinium Brm/Vilanterol Tr 1 puff INHALATION DAILY 09/19/18 11/04/19 History [Anoro Ellipta 62.5-25 Mcg INH] tamsulosin 0.4 mg capsule 0.4 mg PO DAILY cap 03/27/19 11/03/19 History diphenhydramine HCl 25 mg capsule 25 mg PO QHS PRN 08/28/19 11/03/19 History hydrocodone 7.5 mg-acetaminophen 1 tab PO DAILY PRN tab 08/28/19 11/03/19 History 325 mg tablet ondansetron HCl 8 mg tablet 8 mg PO Q8H PRN tab 08/28/19 11/03/19 History sacubitril 49 mg-valsartan 51 mg 1 tab PO BID #180 tab 10/06/19 11/03/19 Rx tablet Ticagrelor [Brilinta 90mg 90 mg PO BID 11/03/19 11/03/19 History Tablet] Allergies Allergy/AdvReac Type Severity Reaction Status Date / Time No Known Allergies Allergy Verified 11/04/19 01:09 Exam Vital signs and Labs for Last 24 Hours: Temp Pulse Resp BP
--- NOTE | 2019-11-04 08:18 | P.CONPHA_ITS ---
[facility] Pharmacy VTE Monitoring - Patient Demographics Admission date: 11/04/19 Report Date: 11/04/19 Time: 08:18 Allergies/Adverse Reactions: Patient Allergies No Known Allergies Allergy (Verified 11/04/19 01:09) Height: 1.75 m Weight: 66.239 kg Patient Problems: Current Active Problems (Last Updated 11/29/18 @ 10:46 by Yumiko Stark RN) Lung cancer (Acute) Pneumonia (Acute) COPD (chronic obstructive pulmonary disease) (Chronic) - VTE Risk Labs: VTE Related Lab Results Hgb 7.9 g/dL (14.1-18.0) L* D 11/04/19 06:09 Hct 26.0 % (42.0-52.0) L 11/04/19 06:09 Plt Count 207 K/mm3 (142-424) 11/04/19 06:09 BUN 24 mg/dl (9-20) H 11/04/19 06:09 Creatinine 1.10 mg/dl (0.66-1.25) 11/04/19 06:09 Estimated Creat Clear 59 mL/min (50-200) 11/04/19 06:09 Was VTE Risk Assessment Performed: Yes VTE Score: 5 VTE Risk Level: Low Risk Clinical Trial Participant: No - Prophylaxis VTE Prophylaxis Ordered?: Yes Types of VTE Prophylaxis: TEDS Knee High Location of Applied Device: Refused
[2019-11-04 08:45] LABS: Coronavirus 19 IgG Antibody Negative (Negative)
[2019-11-04 08:46] LABS: Coronavirus 19 IgM Antibody Negative (Negative)
[2019-11-04 09:14] LABS: Lymphocytes % 10 % (10-50); Monocytes % 1 % (2-9); Neutrophils % 86 % (42-76); Total Cells Counted 100
[2019-11-04 09:15] LABS: Anisocytosis 1+; Hypochromasia 1+; Platelet Estimate Normal
--- NOTE | 2019-11-04 10:35 | HMH.PHAINT ---
HOME MEDICATION RECONCILIATION COMPLETED USING LIST FROM CLINIC PHARMACY AND PT INTERVIEW.
--- NOTE | 2019-11-04 16:16 | PC.NURSE ---
PT IS RESTING IN BED. AMBULATES TO THE BATHROOM FREQUENTLY. PT WAS EDUCATED ON HOW TO USE THE INCENTIVE SPIROMETER. NON PRODUCTIVE COUGH. PT TOLERATED BLOOD TRANSFUSION WELL. O2 SATURATION HAS BEEN 93-96% ON 2 L NC. PT REQUESTED TO BE SWITCHED TO A REGULAR DIET INSTEAD OF CARDIAC. BP HAS BEEN SOMEWHAT LOW BUT PT HAS MAINTAINED A MAP ABOVE 65. WILL CONTINUE TO MONITOR.
[2019-11-04 17:16] LABS: Hematocrit 30.4 % (42.0-52.0)
[2019-11-04 17:24] LABS: Hemoglobin 9.4 g/dL (14.1-18.0)
[2019-11-05 04:00] VITALS: BP 103/63; PULSE 83; RESP 24; TEMP 36.6; O2SAT 99
[2019-11-05 05:00] VITALS: BMI 22.1
--- NOTE | 2019-11-05 05:23 | PC.NURSE ---
A&OX3. 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 LUNGS NOTED WITH SCATTERED RHONCHI. COUGH WAS DRY AND HACKY AT BEGINNING OF SHIFT, SHIFT PROGRESSED COUGH IS MORE LOOSE. COUGH IS INTERMITTENT. REMAINED IN DROPLET PRECAUTIONS THIS SHIFT. TOLERATED 2LNC WELL THIS SHIFT, WEANED TO RA FOR A PERIOD THIS SHIFT, PT TOLERATED WELL. O2SAT >90 BUT PT BECAME SOA FOLLOWING A COUGHING SPELL AND REAPPLIED 2LNC. WILL ATTEMPT TO WEAN 2LNC TO RA AGAIN. C/O PAIN IN BACK, MEDICATED PT PER MAR WITH PRN PAIN MEDICATION. NO C/O PAIN FOLLOWING ADMINISTRATION OF PAIN MEDICATION, ON REASSESSMENT. PULSES +2. ABDOMEN NONDISTENDED, ACTIVE BOWEL SOUNDS, SOFT AND NONTENDER PER PALPATION. VSS. WILL CONTINUE TO MONITOR.
[2019-11-05 06:39] LABS: Eosinophils % 0.1 % (0.1-12.0); Hematocrit 28.8 % (42.0-52.0); Hemoglobin 9.1 g/dL (14.1-18.0); Lymphocytes # 0.7 K/mm3 (0.7-4.5); Lymphocytes % 3.8 % (10-50); Mean Corpuscular HGB Conc 31.6 g/dL (31.8-35.4); Mean Corpuscular Hemoglobin 25.8 pg (27.0-31.2); Mean Corpuscular Volume 81.6 fl (80-94); Mean Platelet Volume 8.2 fl (7.4-10.4); Monocytes # 0.5 K/mm3 (0.1-1.0); Neutrophils # 16.2 K/mm3 (1.8-7.8); Neutrophils % 93.1 % (37.0-80.0); Platelet Count 279 K/mm3 (142-424); Red Blood Count 3.53 M/mm3 (4.60-6.20); Red Cell Distribution Width 20.3 % (11.5-17.5); White Blood Count 17.5 K/mm3 (4.8-10.8)
[2019-11-05 06:44] LABS: Chloride 115 mmol/L (98-107); Potassium 3.8 mmoL/L (3.5-5.1); Sodium 139 mmol/L (136-145)
[2019-11-05 06:46] LABS: Blood Urea Nitrogen 25 mg/dl (9-20); Creatinine Clearance Estimated 66 mL/min (50-200); Estimated Glomerular Filt Rate 74 ml/min (>60); GFR (African American) 89 ML/MIN (>60); MANUAL DIFFERENTIAL MANUAL DIFFERENTIAL (MANUAL DIFF)
[2019-11-05 06:47] LABS: Alanine Aminotransferase 14 U/L (12-78); Albumin Level 2.7 g/dl (3.5-5.0); Alkaline Phosphatase 74 U/L (38-126); Anion Gap 11.8 mEq/L (5-15); Aspartate Amino Transferase 31 U/L (17-59); Bilirubin,Total 0.4 mg/dl (0.2-1.3); Calcium 8.5 mg/dl (8.4-10.2); Carbon Dioxide 16 mmol/L (22.0-30.0); Globulin 2.8 g/dL (1.3-3.2); Glucose 152 mg/dl (74-100); Total Protein,Serum 5.5 g/dl (6.3-8.2)
--- NOTE | 2019-11-05 07:28 | HMH.DCSUM ---
General - General Admission date:: 11/04/19 Discharge date: 11/05/19 HPI HPI: Mr. Greene is a 69-year-old male with history of lung cancer, COPD/emphysema, extensive smoking history, and congestive heart failure who presented to the ER last night due to worsening shortness of breath and tachypnea. States he was around his granddaughter this past week and she was sick with a cold. His symptoms began over the weekend and have gotten progressively worse. He does not wear oxygen at home but was found to be tachypneic in order to maintain sats greater than 90%. Started on oxygen with improvement in his respiratory distress. Imaging and labs obtained concerning for pneumonia. Comprehensive panel performed in the clinic prior to the ER showing positive rhinovirus results. COVID was pending. Blood pressure was noted to be soft however this is not inconsistent with his normal blood pressure in the office. On assessment this morning he feels little bit more comfortable on 2 L nasal cannula although his nose is dry. Had significant drop in his hemoglobin overnight with fluid resuscitation. Remains afebrile and hemodynamically stable. White count has improved since initiating antibiotics. Denies any chest pain, nausea, vomiting. Urine output normal. Afebrile. Hospital Course Hospital Course: Patient was admitted, found to have rhino/enterovirus on outpatient PCR testing with an infiltrate. Given his problems with hypoxia issues he was admitted for fluids, oxygen resuscitation and antibiotics. He did well over the next 24 to 48 hours. COVID testing had been negative as an outpatient. He improved this morning and felt good, eating well, O2 saturations acceptable on room air. Patient has nebulizers and oxygen at home, feels comfortable going home and his eating and drinking is back to his baseline levels. He will be discharged home to resume his doxycycline and prednisone that was prescribed as an outpatient. Follow-up will be in our office as regularly scheduled and with his lung cancer physicians whom he will see early next week. Objective Vital signs: Temp Pulse Resp BP Pulse Ox 97.9 F 83 24 103/63 L 99 11/05/19 04:00 11/05/19 04:00 11/05/19 04:00 11/05/19 04:00 11/05/19 04:00 no acute distress - *Routine HEENT Exam Head: Present: normocephalic Eye: Present: EOMI, PERRL ENT: Present: mucous membranes moist - *Routine Neck Exam Present: supple - *Routine Respiratory Exam Present: prolonged expiratory phase, rales Comments: Much improved air movement over admission - *Routine Cardiovascular Exam Present: RRR - *Routine Abdominal Exam Present: soft, normoactive bowel sounds. Absent: tenderness - *Routine Extremities Exam Absent: cyanosis, clubbing, edema - *Routine Skin Exam Present: warm. Absent: rash - Detailed Eye Exam Eyelids: Bilateral normal inspection Results Labs on day of discharge: Labs from last 24 hours 11/05/19 11/05/19 11/04/19 05:55 05:55 17:05 WBC 17.5 H D RBC 3.53 L Hgb 9.1 L 9.4 L D Hct 28.8 L 30.4 L MCV 81.6 MCH 25.8 L MCHC 31.6 L RDW 20.3 H Plt Count 279 D MPV 8.2 Neut % (Auto) 93.1 H Lymph % (Auto) 3.8 L [place] % (Auto) 3.0 Eos % (Auto) 0.1 Baso % (Auto) 0.0 L Neut # (Auto) 16.2 H Lymph # (Auto) 0.7 [place] # (Auto) 0.5 Eos # (Auto) 0.0 Baso # (Auto) 0.0 Total Counted Neutrophils % (Manual) Band Neutrophils % Lymphocytes % (Manual) Monocytes % (Manual) Platelet Estimate Hypochromasia Anisocytosis Sodium 139 Potassium 3.8 Chloride 115 H Carbon Dioxide 16 L Anion Gap 11.8 BUN 25 H Creatinine 1.00 Estimated Creat Clear 66 Estimated GFR 74 Est GFR ( Amer) 89 Glucose 152 H Calcium 8.5 Total Bilirubin 0.4 AST 31 D ALT 14 D Alkaline Phosphatase 74 Total Protein 5.5 L Albumin 2.
[2019-11-05 08:00] VITALS: BP 107/60; PULSE 75; RESP 17; TEMP 36.4; O2SAT 98
[2019-11-05 08:19] LABS: Lymphocytes % 3 % (10-50); Neutrophils % 95 % (42-76); Total Cells Counted 100
[2019-11-05 08:20] LABS: Anisocytosis 1+; Hypochromasia 1+; Platelet Estimate Normal
--- NOTE | 2019-11-05 09:06 | SW/DCPLANNER ---
PATIENT ADMITTED TO [facility] WITH A DIAGNOSIS OF PNEUMONIA, PATIENT IS BETTER AND MEDICALLY READY FOR A DISCHARGE TO HOME.. PATIENT DOES NOT HAVE ANY HOME CARE NEEDS AT THIS TIME.. HE IS TO FOLLOW UP WITH DR BANUELOS/SUKHI IN THE OFFICE AN APPT WILL BE MADE PRIOR TO PATIENT LEAVING THE HOSPITAL...
== END 2019-11-05 09:30 | disposition home or self-care (01) ==
LOC: ER 21:47 → 2ND 11-04 00:02
PROVIDERS: Admitting Provider Family Medicine; Emergency Provider Emergency Medicine; PCP Internal Medicine Adolescent Medicine; Visit Provider Internal Medicine Adolescent Medicine
DX: J18.9 Pneumonia, unspecified organism (principal); J44.9 Chronic obstructive pulmonary disease, unspecified; I50.9 Heart failure, unspecified; I48.91 Unspecified atrial fibrillation; Z95.0 Presence of cardiac pacemaker; Z95.1 Presence of aortocoronary bypass graft; N17.9 Acute kidney failure, unspecified; Z79.52 Long term (current) use of systemic steroids; D64.9 Anemia, unspecified; I11.0 Hypertensive heart disease with heart failure; Z23 Encounter for immunization; C34.31 Malignant neoplasm of lower lobe, right bronchus or lung
CPT/HCPCS: 36430; G0009; 36415; 71275; 80048; 80053; 82803; 83605; 85007; 85014; 85018; 85025; 86328; 86850; 87040; 87070; 87205; 90732; 93041; 94640; 94761; 96365; 96366; 96367; 96375; 96376; 99282; G0378; J0456; P9016; Q9967

== ENCOUNTER → 2019-12-16 14:57 | Outpatient (CLI) | payer MEDICARE, OTHER, SELFPAY ==
--- NOTE | 2019-12-16 15:10 | XR_ITS ---
PROCEDURE: XR CHEST PORTABLE CLINICAL HISTORY: COVID TESTING Lung cancer COMPARISON: CR XR CHEST 2V from 03/07/2019 CR XR CHEST 2V from 04/03/[address] ANGIO CHEST from 11/03/2019 CR XR CHEST PORTABLE from 11/03/2019 FINDINGS: Prior CABG with bipolar pacemaker present from left subclavian approach. Right subclavian MediPort catheter is present with the tip in the region the SVC Coarsened bronchovascular markings are present bilaterally. No lobar consolidation or collapse. Previously noted increased markings in the right lung base has improved. Parenchymal opacity is noted in the right lower lobe medially and may be related to some residual atelectasis or infiltrate. Consider follow-up to confirm stability. No acute bony abnormalities. IMPRESSION: COPD with chronic changes with improvement in right basilar airspace disease with some persistent parenchymal opacity in the right lung base medially which could be due to some residual atelectasis or infiltrate. Recommend follow-up to confirm stability as developing nodule is not exclude. Dictated by: Jaun Kumar MD 12/16/2019 16:37 Jaun Kumar MD in [place] 12/16/2019 16:37
[2019-12-16 16:58] LABS: Basophils % 0.7 % (0.1-2.0); Eosinophils # 0.1 K/mm3 (0.0-0.4); Eosinophils % 1.1 % (0.1-12.0); Hematocrit 32.4 % (42.0-52.0); Hemoglobin 9.4 g/dL (14.1-18.0); Lymphocytes # 1.5 K/mm3 (0.7-4.5); Lymphocytes % 25.9 % (10-50); Mean Corpuscular Hemoglobin 23.6 pg (27.0-31.2); Mean Corpuscular Volume 81.6 fl (80-94); Mean Platelet Volume 7.5 fl (7.4-10.4); Monocytes # 0.5 K/mm3 (0.1-1.0); Monocytes % 8.1 % (1.7-9.3); Neutrophils # 3.7 K/mm3 (1.8-7.8); Neutrophils % 64.2 % (37.0-80.0); Platelet Count 244 K/mm3 (142-424); Red Blood Count 3.97 M/mm3 (4.60-6.20); Red Cell Distribution Width 21.3 % (11.5-17.5); White Blood Count 5.8 K/mm3 (4.8-10.8)
== END ==
PROVIDERS: PCP Internal Medicine Adolescent Medicine; Visit Provider Internal Medicine Adolescent Medicine
DX: Z03.818 Encounter for observation for suspected exposure to other biological agents ruled out (principal); R05 Cough
CPT/HCPCS: 36415; 71045; 85025; U0003

== ENCOUNTER 2020-05-04 12:30 | Inpatient (IN) | payer MEDICARE, OTHER, SELFPAY ==
[2020-05-04] VITALS (10 sets, daily range): BP systolic 81–99; BP diastolic 46–57; PULSE 64–88; RESP 18–26; TEMP 36.7–37.2; O2SAT 90–98; BMI 21.2; BMI 19.5
--- NOTE | 2020-05-04 14:38 | HMH.EDGENADL ---
ED Disposition Clinical Impression: Pneumonia due to COVID-19 virus, DAVID (acute kidney injury) Hypotension Qualifiers: Hypotension type: unspecified hypotension type Qualified Code(s): I95.9 - Hypotension, unspecified Lung cancer Qualifiers: Laterality: unspecified laterality Lung location: unspecified part of lung Qualified Code(s): C34.90 - Malignant neoplasm of unspecified part of unspecified bronchus or lung Disposition: Admitted As Inpatient Condition on Discharge: Serious - Critical Care Critical Care Time: Yes Attestation: On 05/04/20, the high probability of a clinically significant, sudden or life threatening deterioration of the following system(s) required my full and direct attention, intervention and personal management. The time I documented below is in addition to time spent performing reported procedures but includes the following listed in this critical care notation. Total Critical Care Time: 50 Vital system(s) involved:: Circulatory Failure, Shock (Septic) My critical care processes included: Assessment & monitoring of V/S, Initial and Re-exams, Data Review/Interpretation, Coordinating Care, Medication Orders and management, Documentation Medical Decision Making - Bubba Inquiry Pt receiving controlled substance: No Vital Signs: 05/04/20 13:01 05/04/20 13:15 05/04/20 14:00 Temperature 98.3 F Temperature Source Oral Pulse Rate Pulse Rate [Left] 88 81 83 Respiratory Rate 26 H Blood Pressure Blood Pressure [Right Arm] 99/51 L 92/51 L 93/54 L Blood Pressure Mean [Right Arm] 67 64 67 Blood Pressure Source Blood Pressure Source [Right Arm] Automatic Cuff Automatic Cuff Automatic Cuff Blood Pressure Position Blood Pressure Position [Right Arm] Sitting Supine Supine 02 Sat by Pulse Oximetry 93 L 98 97 Oxygen Delivery Method Room Air Room Air Room Air Oxygen Flow Rate (LPM) 05/04/20 15:00 05/04/20 17:00 05/04/20 17:30 Temperature Temperature Source Pulse Rate Pulse Rate [Left] 73 81 70 Respiratory Rate 18 18 Blood Pressure Blood Pressure [Right Arm] 81/53 L 83/55 L 83/55 L Blood Pressure Mean [Right Arm] 62 64 64 Blood Pressure Source Blood Pressure Source [Right Arm] Automatic Cuff Blood Pressure Position Blood Pressure Position [Right Arm] Supine 02 Sat by Pulse Oximetry 96 97 95 Oxygen Delivery Method Nasal Cannula Room Air Oxygen Flow Rate (LPM) 2 05/04/20 18:00 05/04/20 18:08 Temperature 98.9 F Temperature Source Oral Pulse Rate 77 Pulse Rate [Left] 74 Respiratory Rate 20 20 Blood Pressure 89/56 L Blood Pressure [Right Arm] 83/46 L Blood Pressure Mean [Right Arm] 58 Blood Pressure Source Automatic Cuff Blood Pressure Source [Right Arm] Blood Pressure Position Sitting Blood Pressure Position [Right Arm] 02 Sat by Pulse Oximetry 97 Oxygen Delivery Method Room Air Room Air Oxygen Flow Rate (LPM) - Lab Data Lab Results 05/04/20 14:45: WBC 2.1 L, RBC 4.23 L, Hgb 10.2 L, Hct 33.6 L, MCV 79.4 L, MCH 24.2 L, MCHC 30.5 L, RDW 25.1 H*, Plt Count 148, MPV 8.6, Neut % (Auto) 66.1, Lymph % (Auto) 28.3, [place] % (Auto) 4.4, Eos % (Auto) 0.4, Baso % (Auto) 0.8, Neut # (Auto) 1.4 L, Lymph # (Auto) 0.6 L, [place] # (Auto) 0.1, Eos # (Auto) 0.0, Baso # (Auto) 0.0 05/04/20 14:45: Sodium 136, Potassium 4.1, Chloride 112 H, Carbon Dioxide 19 L, Anion Gap 9.1, BUN 42 H, Creatinine 2.00 H, Estimated Creat Clear 32, Estimated GFR 33 L, Est GFR ( Amer) 40 L, Glucose 133 H, Calcium 8.8, Total Bilirubin 0.3, AST 60 H, ALT 20, Alkaline Phosphatase 88, Total Protein 6.2 L, Albumin 2.9 L, Globulin 3.3 H, Albumin/Globulin Ratio 0.9 L 05/04/20 14:45: Troponin I 1.35 H, Procalcitonin 0.289 05/04/20 15:08: Lactate 1.0 Result diagrams: 05/04/20 14:45 05/04/20 14:45 Orders (Tests/Meds): ED MEDICATIONS Generic Name Dose Route Start Last Admin Trade Name Freq PRN Reason Stop Dose Admin Acetaminophen 650 mg 05/04/20 18:34 Ryan
--- NOTE | 2020-05-04 14:51 | XR_ITS ---
PROCEDURE: XR CHEST PORTABLE CLINICAL HISTORY: cough Cough and congestion COMPARISON: CR XR CHEST 2V from 04/03/[address] ANGIO CHEST from 11/03/2019 CR XR CHEST PORTABLE from 11/03/2019 CR XR CHEST PORTABLE from 12/16/2019 FINDINGS: Prior CABG. Bipolar pacemaker is present from left subclavian approach. MediPort catheter is present the right subclavian approach with the tip in the region the SVC. Interstitial edema is present in the lung bases with bilateral lower lobe pneumonia left more extensive than right. No acute bony abnormalities. IMPRESSION: Bilateral lower lobe pneumonia left more extensive than right with interstitial edema in the lower lobes also greater on the left. Dictated by: Jaun Kumar MD 05/04/2020 15:45 Jaun Kumar MD in [place] 05/04/2020 15:45
[2020-05-04 15:03] LABS: Monocytes # 0.1 K/mm3 (0.1-1.0); Neutrophils # 1.4 K/mm3 (1.8-7.8)
[2020-05-04 15:05] LABS: Alanine Aminotransferase 20 U/L (12-78); Albumin Level 2.9 g/dl (3.5-5.0); Albumin/Globulin Ratio 0.9 (1.1-1.8); Alkaline Phosphatase 88 U/L (38-126); Anion Gap 9.1 mEq/L (5-15); Aspartate Amino Transferase 60 U/L (17-59); Bilirubin,Total 0.3 mg/dl (0.2-1.3); Blood Urea Nitrogen 42 mg/dl (9-20); Calcium 8.8 mg/dl (8.4-10.2); Carbon Dioxide 19 mmol/L (22.0-30.0); Chloride 112 mmol/L (98-107); Creatinine Clearance Estimated 32 mL/min (50-200); Estimated Glomerular Filt Rate 33 ml/min (>60); GFR (African American) 40 ML/MIN (>60); Globulin 3.3 g/dL (1.3-3.2); Glucose 133 mg/dl (74-100); Potassium 4.1 mmoL/L (3.5-5.1); Sodium 136 mmol/L (136-145); Total Protein,Serum 6.2 g/dl (6.3-8.2)
[2020-05-04 15:09] LABS: Basophils % 0.8 % (0.1-2.0); Eosinophils % 0.4 % (0.1-12.0); Hematocrit 33.6 % (42.0-52.0); Hemoglobin 10.2 g/dL (14.1-18.0); Lymphocytes # 0.6 K/mm3 (0.7-4.5); Lymphocytes % 28.3 % (10-50); Mean Corpuscular HGB Conc 30.5 g/dL (31.8-35.4); Mean Corpuscular Hemoglobin 24.2 pg (27.0-31.2); Mean Corpuscular Volume 79.4 fl (80-94); Mean Platelet Volume 8.6 fl (7.4-10.4); Monocytes % 4.4 % (1.7-9.3); Neutrophils % 66.1 % (37.0-80.0); Platelet Count 148 K/mm3 (142-424); Red Blood Count 4.23 M/mm3 (4.60-6.20); Red Cell Distribution Width 25.1 % (11.5-17.5); White Blood Count 2.1 K/mm3 (4.8-10.8)
--- NOTE | 2020-05-04 15:14 | ECG_ITS ---
APPROVED REPORT Exam: Resting ECG HR:81 bpm ECG Measurements Heart Rate 81 AXES CO 146 P 75 QRSd 84 QRS 81 QT 338 T 89 QTc 392 Conclusion Sinus rhythm with premature atrial complexes in a pattern of bigeminy Low voltage QRS Nonspecific T wave abnormality Abnormal ECG Electronically signed by : Yonas Jorge, 05/04/2020 17:18:42
[2020-05-04 15:21] LABS: Troponin I 1.35 ng/ml (0.00-0.034)
[2020-05-04 15:25] LABS: Procalcitonin 0.289 ng/mL (0.0-2.0)
--- NOTE | 2020-05-04 16:44 | PC.NURSE ---
CALL PATIENT'S PHARMACY FOR THEM TO FAX PATIENT'S MED REC
--- NOTE | 2020-05-04 18:01 | PC.NURSE ---
MD at bedside discussing results and plan for admit.
--- NOTE | 2020-05-04 18:54 | PC.NURSE ---
Addendum entered by Caron Valdez RN 05/04/20 19:37: REMDESIVIR WILL BE DOSED BY IN HOUSE PHARMACY TOMORROW* Original Note: SPOKE WITH NIKOLAS IN PHARMACY. HE STATED TO GIVE 1.25G OF VANC NOW IN 250ML OF NS AND THEN 1G Q24HR. AND IN HOUSE PHARMACY WILL DOSE REMDESIVIR.
[2020-05-04 20:04] LABS: Troponin I 1.29 ng/ml (0.00-0.034)
[2020-05-04 22:30] LABS: Troponin I 1.29 ng/ml (0.00-0.034)
[2020-05-05] VITALS (12 sets, daily range): BP systolic 93–120; BP diastolic 55–73; PULSE 60–70; RESP 16–26; TEMP 34.9–37; O2SAT 91–95; BMI 19.6; BMI 19.5
--- NOTE | 2020-05-05 04:22 | PC.NURSE ---
Pt has been pleasant and cooperative this shift. A&O X4. No complaints of pain or SOA. Pt is currently on room air with sats. >90%. O2 @ 2 LPM via NC available at bedside if needed. Lungs CTA. Pt reports intermittent, dry, non-productive cough. Telemetry shows NSR. No edema noted. Skin is C/D/I. Pt ambulates independently and uses the urinal to void clear, yellow urine without issue. No BM this shift. Pt was placed on a Mer[employer] Paws machine at 0000 due to a rectal temperature of 94.9. Meron Paws removed at 0330 per pt request, rectal temperature at this time noted to be 96.8. Axillary temperature at 0400 noted to be 96.9. 20 G peripheral IV in RT wrist is patent and SL. RT chest wall port is patent and infusing NS @ 100 ML/HR. B/P noted to be low this shift. Other VSS. Call light within reach. Will continue to monitor.
[2020-05-05 06:22] LABS: Basophils % 1.1 % (0.1-2.0); Eosinophils % 0.2 % (0.1-12.0); Hematocrit 31.1 % (42.0-52.0); Hemoglobin 9.4 g/dL (14.1-18.0); Lymphocytes # 0.4 K/mm3 (0.7-4.5); Lymphocytes % 33.7 % (10-50); Mean Corpuscular HGB Conc 30.3 g/dL (31.8-35.4); Mean Corpuscular Hemoglobin 24.2 pg (27.0-31.2); Mean Corpuscular Volume 79.9 fl (80-94); Mean Platelet Volume 7.3 fl (7.4-10.4); Monocytes # 0.1 K/mm3 (0.1-1.0); Monocytes % 4.1 % (1.7-9.3); Neutrophils # 0.8 K/mm3 (1.8-7.8); Neutrophils % 60.9 % (37.0-80.0); Platelet Count 121 K/mm3 (142-424); Red Blood Count 3.89 M/mm3 (4.60-6.20); Red Cell Distribution Width 24.6 % (11.5-17.5); White Blood Count 1.3 K/mm3 (4.8-10.8)
[2020-05-05 06:49] LABS: Anion Gap 7.6 mEq/L (5-15); Blood Urea Nitrogen 38 mg/dl (9-20); Carbon Dioxide 17 mmol/L (22.0-30.0); Chloride 120 mmol/L (98-107); Creatinine Clearance Estimated 45 mL/min (50-200); Estimated Glomerular Filt Rate 55 ml/min (>60); GFR (African American) 66 ML/MIN (>60); Glucose 138 mg/dl (74-100); Potassium 4.6 mmoL/L (3.5-5.1); Sodium 140 mmol/L (136-145)
--- NOTE | 2020-05-05 07:49 | HMH.HP ---
*Admission Date: 05/04/20 *Chief complaint: Weakness/cough *History of present illness: States he has a 2-day history of feeling weak, poor appetite, coughing, diarrhea, coughing, mild shortness of breath. Denies vomiting. Denies any pain including chest pain and abdominal pain. Denies fever. He says his has been sick for 1 week with Covid. He has not been vaccinated against Covid. He has not had Covid. He has stage IV lung cancer. He is currently treated by an oncologist at [facility]. He says he is on an experimental intravenous medication that he gets monthly. No surgery or radiation for his cancer. He is a former smoker. He has heart disease, says that he has a defibrillator. Denies diabetes. Above note per emergency department. Patient came to the emergency department because of weakness, cough and diarrhea. In the emergency department work-up revealed COVID-19 infection with mild pneumonitis. Relatively low blood pressure, mild leukocytosis. In the context of his underlying lung cancer and chronic cardiac disease [facility] was called for possible transfer but according to ER notes [facility] attending stated that because he has Covid we cannot accept him. Patient was admitted to our Covid unit for IV fluids and further diagnostic testing. Of note this morning he states he feels much better and has resolved his chills. His main complaint today is some very minimal nasal bleeding. He notes this started after he was given some nasal cannula oxygen overnight. [facility] History I have reviewed the patient's past medical history: Yes Medical History: Reports:: Arrhythmia, Atrial Fibrillation, Cancer (STAGE 4 LUNG), Chronic Obstructive Pulmonary Disease (COPD), Coronary Artery Disease, Hyperlipidemia, Hypertension, Internal Pacemaker, Myocardial Infarction Denies:: Diabetes Mellitus Type 1, Diabetes Mellitus Type 2, MRSA *Have you ever received a pneumonia vaccine?: No *Have you received a flu vaccine this season?: No Other Medical History: Reports: Arthritis, Chemotherapy Other Surgeries: Yes: CABG, Cardiac Catheterization, Cardiac Surgery, Coronary Stent, Hernia Repair, Pacemaker Amputation: No Fractures: No - *Social History Smoking Status: Unknown if ever smoked Tobacco Type: cigarettes # Packs/Day (cigarettes): 1 Alcohol Intake: never Alcohol Intake Frequency:: other Substance Use Type: denies use *Occupational Status:: disabled Housing: house Household Members: significant other, children *Travel in the last 8 weeks: None Family Hx:: No significant family history Review of Systems - Review of Systems Review of systems:: pertinent systems reviewed and negative unless documented below Notes baseline shortness of air, cough is slightly worse than normal. Minimal nasal bleeding as noted. Denies palpitations, anginal chest pain or edema. Diarrhea without blood noted, minimal nausea, no vomiting. Otherwise 10 point review of systems negative - *Neurologic Reports weakness, Denies headache(s) Meds Home Medications Medication Instructions Recorded Confirmed Type atorvastatin 80 mg tablet 80 mg PO DAILY tab 06/18/17 05/04/20 History aspirin 81 mg tablet,delayed 81 mg PO DAILY 11/01/17 05/04/20 History release Umeclidinium Brm/Vilanterol Tr 1 puff INHALATION DAILY 09/19/18 05/04/20 History [Anoro Ellipta 62.5-25 Mcg INH] tamsulosin 0.4 mg capsule 0.4 mg PO DAILY cap 03/27/19 05/04/20 History Ticagrelor [Brilinta 90mg 90 mg PO BID 11/03/19 05/04/20 History Tablet] prednisone 50 mg tablet 50 mg PO DIRECTED tab 02/19/20 05/04/20 History temazepam 15 mg capsule 15 mg PO HS cap 02/19/20 05/04/20 History Codeine Phosphate/Guaifenesin 5 ml PO NEEDED PRN 05/04/20 05/04/20 History [Virtussin AC 10-100 mg/5 ml Lq] Folic Acid 1 mg PO DAILY 05/04/20 05/04/20 History Hydrocodone/Acetaminophen 325 mg PO TID 05/04/20 05/04/20 History [Hydrocodone-Acetamin 10-325 mg]
--- NOTE | 2020-05-05 08:21 | P.CONPHA_ITS ---
[facility] Pharmacy VTE Monitoring - Patient Demographics Admission date: 05/04/20 Report Date: 05/05/20 Time: 08:21 Allergies/Adverse Reactions: Patient Allergies No Known Allergies Allergy (Verified 05/04/20 13:09) Height: 1.75 m Weight: 60.101 kg Patient Problems: Current Active Problems (Last Updated 11/29/18 @ 10:46 by Yumiko Stark RN) Lung cancer (Chronic) DAVID (acute kidney injury) (Acute) Anemia (Acute) Pneumonia due to COVID-19 virus (Acute) Hypotension (Acute) - VTE Risk Labs: VTE Related Lab Results Hgb 9.4 g/dL (14.1-18.0) L 05/05/20 05:00 Hct 31.1 % (42.0-52.0) L 05/05/20 05:00 Plt Count 121 K/mm3 (142-424) L 05/05/20 05:00 BUN 38 mg/dl (9-20) H 05/05/20 05:00 Creatinine 1.30 mg/dl (0.66-1.25) H D 05/05/20 05:00 Estimated Creat Clear 45 mL/min (50-200) 05/05/20 05:00 Was VTE Risk Assessment Performed: Yes VTE Score: 7 VTE Risk Level: Moderate Risk Clinical Trial Participant: No - Prophylaxis VTE Prophylaxis Ordered?: Yes Types of VTE Prophylaxis: TEDS Knee High, Pharmacological Pharmacologic Type: Enoxaparin
--- NOTE | 2020-05-05 09:11 | HMH.PHACONS ---
- Pharmacy Consult Date: 05/05/20 Time: 09:11 Referring provider: DR. ISBELL Reason for Consult:: VANCOMYCIN DOSING Allergies and ADEs:: Allergies Allergy/AdvReac Type Severity Reaction Status Date / Time No Known Allergies Allergy Verified 05/04/20 13:09 Home Medications:: Home Medications Medication Instructions Recorded Confirmed Type atorvastatin 80 mg tablet 80 mg PO DAILY tab 06/18/17 05/04/20 History aspirin 81 mg tablet,delayed 81 mg PO DAILY 11/01/17 05/04/20 History release Umeclidinium Brm/Vilanterol Tr 1 puff INHALATION DAILY 09/19/18 05/04/20 History [Anoro Ellipta 62.5-25 Mcg INH] tamsulosin 0.4 mg capsule 0.4 mg PO DAILY cap 03/27/19 05/04/20 History Ticagrelor [Brilinta 90mg 90 mg PO BID 11/03/19 05/04/20 History Tablet] prednisone 50 mg tablet 50 mg PO DIRECTED tab 02/19/20 05/04/20 History temazepam 15 mg capsule 15 mg PO HS cap 02/19/20 05/04/20 History Codeine Phosphate/Guaifenesin 5 ml PO NEEDED PRN 05/04/20 05/04/20 History [Virtussin AC 10-100 mg/5 ml Lq] Folic Acid 1 mg PO DAILY 05/04/20 05/04/20 History Hydrocodone/Acetaminophen 325 mg PO TID 05/04/20 05/04/20 History [Hydrocodone-Acetamin 10-325 mg] Mirtazapine [Remeron] 15 mg PO HS 05/04/20 05/04/20 History Omeprazole [Omeprazole 40mg 40 mg PO DAILY 05/04/20 05/04/20 History Capsule] Sacubitril/Valsartan [Entresto 49 51 mg PO BID 05/04/20 05/04/20 History mg-51 mg Tablet] carvediloL [Carvedilol 12.5mg Tab] 12.5 mg PO BID 05/04/20 05/04/20 History Height: 1.75 m Weight: 60.101 kg Laboratory Results:: Laboratory Results - last 24 hr 05/04/20 14:45: WBC 2.1 L, RBC 4.23 L, Hgb 10.2 L, Hct 33.6 L, MCV 79.4 L, MCH 24.2 L, MCHC 30.5 L, RDW 25.1 H*, Plt Count 148, MPV 8.6, Neut % (Auto) 66.1, Lymph % (Auto) 28.3, Walker % (Auto) 4.4, Eos % (Auto) 0.4, Baso % (Auto) 0.8, Neut # (Auto) 1.4 L, Lymph # (Auto) 0.6 L, Walker # (Auto) 0.1, Eos # (Auto) 0.0, Baso # (Auto) 0.0 05/04/20 14:45: Sodium 136, Potassium 4.1, Chloride 112 H, Carbon Dioxide 19 L, Anion Gap 9.1, BUN 42 H, Creatinine 2.00 H, Estimated Creat Clear 32, Estimated GFR 33 L, Est GFR ( Amer) 40 L, Glucose 133 H, Calcium 8.8, Total Bilirubin 0.3, AST 60 H, ALT 20, Alkaline Phosphatase 88, Total Protein 6.2 L, Albumin 2.9 L, Globulin 3.3 H, Albumin/Globulin Ratio 0.9 L 05/04/20 14:45: Troponin I 1.35 H, Procalcitonin 0.289 05/04/20 15:08: Lactate 1.0 05/04/20 19:30: Troponin I 1.29 H 05/04/20 21:30: Troponin I 1.29 H 05/05/20 05:00: WBC 1.3 L* D, RBC 3.89 L, Hgb 9.4 L, Hct 31.1 L, MCV 79.9 L, MCH 24.2 L, MCHC 30.3 L, RDW 24.6 H, Plt Count 121 L, MPV 7.3 L, Neut % (Auto) 60.9, Lymph % (Auto) 33.7, Walker % (Auto) 4.1, Eos % (Auto) 0.2, Baso % (Auto) 1.1, Neut # (Auto) 0.8 L*, Lymph # (Auto) 0.4 L, Walker # (Auto) 0.1, Eos # (Auto) 0.0, Baso # (Auto) 0.0 05/05/20 05:00: Sodium 140, Potassium 4.6, Chloride 120 H, Carbon Dioxide 17 L, Anion Gap 7.6, BUN 38 H, Creatinine 1.30 H D, Estimated Creat Clear 45, Estimated GFR 55 L, Est GFR ( Amer) 66 D, Glucose 138 H, Calcium 8.0 L Medical History: Reports:: Arrhythmia, Atrial Fibrillation, Cancer (STAGE 4 LUNG), Chronic Obstructive Pulmonary Disease (COPD), Coronary Artery Disease, Hyperlipidemia, Hypertension, Internal Pacemaker, Myocardial Infarction Denies:: Diabetes Mellitus Type 1, Diabetes Mellitus Type 2, MRSA Assessment and Plan (1) DAVID (acute kidney injury) Status: Acute Category: Medical Code(s): N17.9 - Acute kidney failure, unspecified (2) Hypotension Status: Acute Qualifiers: Hypotension type: unspecified hypotension type Qualified Code(s): I95.9 - Hypotension, unspecified Category: Medical Code(s): I95.9 - Hypotension, unspecified (3) Pneumonia due to COVID-19 virus Status: Acute Category: Medical Code(s): U07.1 - COVID-19; J12.82 - Pneumonia due to coronavirus disease 2019 (4) Lung cancer Status: Chronic Qualifiers: Laterality: unspecified latera
--- NOTE | 2020-05-05 14:43 | PC.NURSE ---
Attempted to obtain sputum sample but patient unable to produce; Specimen cup at bedside.
--- NOTE | 2020-05-05 17:28 | PC.NURSE ---
Pt is alert and oriented x4. Lungs clear but diminished throughout. He remains on RA with O2 sats in the upper 90's. O2 will drop as low as 88% when coughing or on exertion but he recovers quickly. He uses a urinal and BSC at the bedside independently. He has has 2 loose stools this shift. He's been NSR on telemetry. Temperature has been WNL. He had a light nose bleed this AM. Neosynephrine administered per MAR with patient reporting no more bleeding. He has had an intermittent dry cough. He has denied pain or any other complaints. Appetite fair, tolerating diet well. Will continue to monitor.
--- NOTE | 2020-05-05 18:56 | PC.NURSE ---
Pt placed on 2L NC due to O2 dropping to mid 80's during a coughing spell.
[2020-05-06] VITALS (31 sets, daily range): BP systolic 96–130; BP diastolic 56–94; PULSE 60–110; RESP 19–38; TEMP 36.2–36.9; O2SAT 85–100; BMI 20.2
--- NOTE | 2020-05-06 04:11 | PC.NURSE ---
Pt has been pleasant and cooperative this shift. A&O X4. No complaints of pain. Pt is currently receiving O2 via NC @ 2 LPM with sats. >90%. Lung sounds are diminished. Pt reports intermittent, dry, non-productive cough. O2 de-saturation occurs with coughing. Robitussin given X2 this shift. Telemetry shows NSR. No edema noted. Skin is C/D/I. Pt ambulates independently and uses the urinal to void clear, yellow urine without issue. No BM this shift. 20 G peripheral IV in RT wrist is patent and infusing NS @ 100 ML/HR. RT chest wall port is patent and SL. VSS. Call light within reach. Will continue to monitor.
[2020-05-06 06:57] LABS: Basophils % 0.2 % (0.1-2.0); Hematocrit 26.5 % (42.0-52.0); Lymphocytes # 0.7 K/mm3 (0.7-4.5); Mean Corpuscular HGB Conc 30.1 g/dL (31.8-35.4); Mean Corpuscular Hemoglobin 24.3 pg (27.0-31.2); Mean Corpuscular Volume 80.8 fl (80-94); Mean Platelet Volume 8.1 fl (7.4-10.4); Monocytes # 0.3 K/mm3 (0.1-1.0); Monocytes % 5.9 % (1.7-9.3); Neutrophils # 4.1 K/mm3 (1.8-7.8); Neutrophils % 80.9 % (37.0-80.0); Platelet Count 143 K/mm3 (142-424); Red Blood Count 3.28 M/mm3 (4.60-6.20); White Blood Count 5.1 K/mm3 (4.8-10.8)
[2020-05-06 06:59] LABS: Red Cell Distribution Width 25.3 % (11.5-17.5)
[2020-05-06 07:07] LABS: Anion Gap 9.1 mEq/L (5-15); Blood Urea Nitrogen 40 mg/dl (9-20); Carbon Dioxide 14 mmol/L (22.0-30.0); Chloride 121 mmol/L (98-107); Creatinine Clearance Estimated 55 mL/min (50-200); Estimated Glomerular Filt Rate 66 ml/min (>60); GFR (African American) 80 ML/MIN (>60); Glucose 128 mg/dl (74-100); Potassium 4.1 mmoL/L (3.5-5.1); Sodium 140 mmol/L (136-145)
--- NOTE | 2020-05-06 08:02 | HMH.ACPN2 ---
Internal Medicine - PN: Subj *Date: 05/06/20 *Time: 08:02 Interval history: Patient sleeping, has been comfortable, did have a minimal oxygen requirement through the night after he has a coughing spell. Is alert, pleasant, has eaten about 50% of his meals. Exam Vital signs and Labs for Last 24 Hours: Temp Pulse Resp BP Pulse Ox 98.2 F 90 28 H 107/57 L 95 05/06/20 03:59 05/06/20 04:00 05/06/20 03:59 05/06/20 03:59 05/06/20 03:59 Laboratory Results - last 24 hr 05/06/20 05:50: WBC 5.1 D, RBC 3.28 L, Hgb 8.0 L, Hct 26.5 L, MCV 80.8, MCH 24.3 L, MCHC 30.1 L, RDW 25.3 H*, Plt Count 143, MPV 8.1, Neut % (Auto) 80.9 H, Lymph % (Auto) 13.0, Barton % (Auto) 5.9, Eos % (Auto) 0.0 L, Baso % (Auto) 0.2, Neut # (Auto) 4.1, Lymph # (Auto) 0.7, Barton # (Auto) 0.3, Eos # (Auto) 0.0, Baso # (Auto) 0.0 05/06/20 05:50: Sodium 140, Potassium 4.1, Chloride 121 H, Carbon Dioxide 14 L, Anion Gap 9.1, BUN 40 H, Creatinine 1.10, Estimated Creat Clear 55, Estimated GFR 66, Est GFR ( Amer) 80 D, Glucose 128 H, Calcium 8.0 L I & O for Last 24 hours: Intake & Output 05/03/20 05/04/20 05/05/20 05/06/20 11:59 11:59 11:59 11:59 Intake Total 1321 / 1321 3321 / 3321 Output Total 1000 / 1000 Balance 1321 / 1321 2321 / 2321 Weight 132 lb 8 oz 136 lb 10.986 oz Microbiology Reports for the Last 24 Hours: Microbiology 05/04/20 15:08 Blood Blood Culture - Preliminary 05/04/20 15:08 Blood Blood Culture - Preliminary Narrative: Alert, oriented x3. Pleasant. No distress. Minimal rhonchi in both bases but good air movement. Heart rate regular. Abdomen soft, no perfusion deficits. No rash. ENT exam clear. Assessment and Plan (1) DAVID (acute kidney injury) Status: Acute Category: Medical Code(s): N17.9 - Acute kidney failure, unspecified (2) Hypotension Status: Acute Qualifiers: Hypotension type: unspecified hypotension type Qualified Code(s): I95.9 - Hypotension, unspecified Category: Medical Code(s): I95.9 - Hypotension, unspecified (3) Pneumonia due to COVID-19 virus Status: Acute Category: Medical Code(s): U07.1 - COVID-19; J12.82 - Pneumonia due to coronavirus disease 2019 (4) Lung cancer Status: Chronic Qualifiers: Laterality: unspecified laterality Lung location: unspecified part of lung Qualified Code(s): C34.90 - Malignant neoplasm of unspecified part of unspecified bronchus or lung Category: Medical Code(s): C34.90 - Malignant neoplasm of unspecified part of unspecified bronchus or lung (5) Anemia Status: Acute Category: Medical Code(s): D64.9 - Anemia, unspecified - Assessment and plan all Dx Assessment and Plan for all problems:: DAVID resolving. Coronary disease with minimal troponin elevation. Treat medically given his multiple comorbidities. Anemia noted secondary to delusional effect and illness issues. Transfuse 2 units of packed cells given his coronary disease and cancer issues. If patient feels better with better nutrition over the next 24 hours may consider discharge home tomorrow with oxygen.
[2020-05-06 08:19] LABS: Alanine Aminotransferase 12 U/L (12-78); Alkaline Phosphatase 66 U/L (38-126); Aspartate Amino Transferase 40 U/L (17-59); Bilirubin,Direct 0.1 mg/dl (0.0-0.4); Bilirubin,Indirect 0.2 mg/dL (0.0-0.9); Bilirubin,Total 0.3 mg/dl (0.2-1.3); Bilirubin,Unconjugated 0.2 mg/dL (0.0-1.1); Total Protein,Serum 4.4 g/dl (6.3-8.2)
--- NOTE | 2020-05-06 12:42 | PC.NURSE ---
1205: PATIENT'S O2 SAT 85% ON 4L/NC. CHANGED PULSE OXIMETERY, APPLIED TO A DIFFERENT FINGER AND FOREHEAD AND O2 SAT REMAINS 85%. INCREASED PATIENT'S OXYGEN TO 5L/NC. HUMIDIFICATION ADDED TO OXYGEN. O2 SAT MAINTAINED 86%-87%. 1215: PATIENT'S SATS DROPPING TO 85%-86% AND SUSTAINING. INCREASED PATIENT'S OXYGEN TO 6L/NC HUMIDIFIED OXYGEN. PATIENT'S REMAINS TACHYPNEIC WITH RR RANGING BETWEEN 27-32. NOTIFIED R.T. OF INCREASE IN O2.
--- NOTE | 2020-05-06 14:53 | PC.NURSE ---
Pt alert and oriented x4. Lungs clear. He is currently on 6L NC with O2 sat measuring mid 80's. O2 sats drop to mid 70's when coughing or on exertion and it takes him approx 25-30 minutes to return to 88-90%. He has been tachypneic all shift w/respirations ranging from 20-32 per min. Appetite is poor. He has refused all meals thus far. He has had 1 unit of PRBC's as of now and tolerated well. He currently has an antibiotic infusing, after completion 2nd unit of PRBC's to be transfused. He's currently had 1 loose stool. Will continue to monitor.
--- NOTE | 2020-05-06 15:20 | PC.NURSE ---
Addendum entered by Darcie Butcher RN 05/06/20 15:45: Spoke with Dr Jorge in person and he stated to order duonebs qid and 60mg of IV lasix once. Order faxed to pharmacy. Original Note: Pt's O2 kept dropping to low 80's and maintaining that at rest. Respiratory came to bedside and placed patient on nonrebreather. O2 sat currently at 92%. Left message with Dr Jorge's office.
[2020-05-06 21:02] LABS: Vancomycin,Trough 7.1 ug/mL (5.0-10.0)
[2020-05-06 22:09] LABS: Hematocrit 34.2 % (42.0-52.0)
[2020-05-07] VITALS (13 sets, daily range): BP systolic 98–123; BP diastolic 62–74; PULSE 60–90; RESP 19–28; TEMP 36.4–36.6; O2SAT 90–99; BMI 20.7
--- NOTE | 2020-05-07 00:20 | PC.NURSE ---
Pt is currently resting in bed, drinking a soda pop. VS are currently stable. Early in shift, pt was noted to be desatting in lower 80s with exertion. Pt was also not tolerating nonrebreather. Pt was placed on Vapotherm 30L 100%. MD Velez aware. No additional orders. Pt tolerated 2nd unit of blood. 2 Hr post H&H obtained resulting 11.0 / 34.2. Vancomycin trough obtained. New orders per Segundo Ngo, pharmacy to change Vancomycin from Q24 hr to Q12 hr. Vanc administered per may. Lungs are diminished. BS active. Pt has had 1425 cc urine output thus far. No other concerns.
--- NOTE | 2020-05-07 06:35 | PC.NURSE ---
Vapotherm titrated per RT to 30L 95%. Pt tolerating well.
--- NOTE | 2020-05-07 06:52 | HMH.ACPN2 ---
Internal Medicine - PN: Subj *Date: 05/07/20 *Time: 12:06 Interval history: 69-year-old male with COPD, history of coronary artery disease, lung cancer (stage IV), COVID-19 pneumonia. Worsening respiratory status overnight. Transition to Vapotherm. Currently on 95% oxygen. Patient continues to feel short of breath but does not have a cough or fever. Vital stable. Goals of care discussion this morning, patient reiterates full CODE STATUS and desire to be placed on a ventilator if continues to worsen. Tolerating p.o. fluids, eating 25 to 50% of his trays. Exam Vital signs and Labs for Last 24 Hours: Temp Pulse Resp BP Pulse Ox 97.9 F 71 28 H 103/62 L 98 05/07/20 04:00 05/07/20 06:35 05/07/20 04:00 05/07/20 04:00 05/07/20 06:35 Laboratory Results - last 24 hr 05/06/20 05:50: WBC 5.1 D, RBC 3.28 L, Hgb 8.0 L, Hct 26.5 L, MCV 80.8, MCH 24.3 L, MCHC 30.1 L, RDW 25.3 H*, Plt Count 143, MPV 8.1, Neut % (Auto) 80.9 H, Lymph % (Auto) 13.0, Hickman % (Auto) 5.9, Eos % (Auto) 0.0 L, Baso % (Auto) 0.2, Neut # (Auto) 4.1, Lymph # (Auto) 0.7, Hickman # (Auto) 0.3, Eos # (Auto) 0.0, Baso # (Auto) 0.0 05/06/20 05:50: Sodium 140, Potassium 4.1, Chloride 121 H, Carbon Dioxide 14 L, Anion Gap 9.1, BUN 40 H, Creatinine 1.10, Estimated Creat Clear 55, Estimated GFR 66, Est GFR ( Amer) 80 D, Glucose 128 H, Calcium 8.0 L 05/06/20 05:50: Total Bilirubin 0.3, Direct Bilirubin 0.1, Conjugated Bilirubin 0.0, Indirect Bilirubin 0.2, Unconjugated Bilirubin 0.2, AST 40 D, ALT 12 D, Alkaline Phosphatase 66, Total Protein 4.4 L D, Albumin 2.0 L 05/06/20 09:40: Blood Type A Positive, Antibody Screen Negative, Crossmatch (AHG) See Detail 05/06/20 19:45: Vancomycin Trough 7.1 05/06/20 21:55: Hgb 11.0 L D, Hct 34.2 L I & O for Last 24 hours: Intake & Output 05/04/20 05/05/20 05/06/20 05/07/20 23:59 23:59 23:59 23:59 Intake Total 3414 / 3414 2435 / 2435 660 / 660 Output Total 2775 / 3300 1125 / 1125 Balance 3414 / 3414 -340 / -865 -465 / -465 Weight 60.101 kg 60 kg 62 kg 63.673 kg Microbiology Reports for the Last 24 Hours: Microbiology 05/04/20 15:08 Blood Blood Culture - Preliminary Gram Positive Cocci 05/04/20 15:08 Blood Blood Culture - Preliminary Gram Positive Cocci - Constitutional mild distress, thin, chronically ill appearing - *Routine HEENT Exam Head: Present: normocephalic Eye: Present: EOMI, PERRL ENT: Present: mucous membranes moist - *Routine Neck Exam Present: supple. Absent: lymphadenopathy - *Routine Respiratory Exam Present: accessory muscle use, prolonged expiratory phase, distant breath sounds. Absent: wheezes, crackles - *Routine Cardiovascular Exam Present: RRR - *Routine Abdominal Exam Present: soft, normoactive bowel sounds. Absent: tenderness - *Routine Extremities Exam Absent: cyanosis, clubbing, edema - *Routine Skin Exam Present: warm. Absent: rash - *Routine Neurological Exam Present: alert, oriented X3 - Routine Psychiatric Exam Present: normal thought process, good insight, anxious (Tearful) Assessment and Plan (1) Pneumonia due to COVID-19 virus Status: Acute Category: Medical Code(s): U07.1 - COVID-19; J12.82 - Pneumonia due to coronavirus disease 2019 (2) DAVID (acute kidney injury) Status: Resolved Category: Medical Code(s): N17.9 - Acute kidney failure, unspecified (3) Hypotension Status: Resolved Qualifiers: Hypotension type: unspecified hypotension type Qualified Code(s): I95.9 - Hypotension, unspecified Category: Medical Code(s): I95.9 - Hypotension, unspecified (4) Lung cancer Status: Chronic Qualifiers: Laterality: right Lung location: lower lobe of lung Qualified Code(s): C34.31 - Malignant neoplasm of lower lobe, right bronchus or lung Category: Medical Code(s): C34.90 - Malignant neoplasm of unspecified part of unspecified bronchus or lung
[2020-05-07 07:09] LABS: Alanine Aminotransferase 11 U/L (12-78); Albumin Level 2.3 g/dl (3.5-5.0); Albumin/Globulin Ratio 0.8 (1.1-1.8); Alkaline Phosphatase 83 U/L (38-126); Aspartate Amino Transferase 46 U/L (17-59); Bilirubin,Total 0.4 mg/dl (0.2-1.3); Blood Urea Nitrogen 49 mg/dl (9-20); Carbon Dioxide 18 mmol/L (22.0-30.0); Chloride 117 mmol/L (98-107); Creatinine Clearance Estimated 56 mL/min (50-200); Estimated Glomerular Filt Rate 66 ml/min (>60); GFR (African American) 80 ML/MIN (>60); Globulin 2.8 g/dL (1.3-3.2); Glucose 126 mg/dl (74-100); Sodium 140 mmol/L (136-145); Total Protein,Serum 5.1 g/dl (6.3-8.2)
[2020-05-07 07:12] LABS: Calcium 8.9 mg/dl (8.4-10.2)
--- NOTE | 2020-05-07 09:59 | HMH.PHACONS ---
- Pharmacy Consult Date: 05/07/20 Time: 09:59 Referring provider: DR. ISBELL Reason for Consult:: VANCOMYCIN TROUGH LEVEL Allergies and ADEs:: Allergies Allergy/AdvReac Type Severity Reaction Status Date / Time No Known Allergies Allergy Verified 05/04/20 13:09 Home Medications:: Home Medications Medication Instructions Recorded Confirmed Type atorvastatin 80 mg tablet 80 mg PO DAILY tab 06/18/17 05/04/20 History aspirin 81 mg tablet,delayed 81 mg PO DAILY 11/01/17 05/04/20 History release tamsulosin 0.4 mg capsule 0.4 mg PO DAILY cap 03/27/19 05/04/20 History Ticagrelor [Brilinta 90mg 90 mg PO BID 11/03/19 05/04/20 History Tablet] temazepam 15 mg capsule 15 mg PO HS cap 02/19/20 05/04/20 History Codeine Phosphate/Guaifenesin 5 ml PO NEEDED PRN 05/04/20 05/04/20 History [Virtussin AC 10-100 mg/5 ml Lq] Folic Acid 1 mg PO DAILY 05/04/20 05/04/20 History Hydrocodone/Acetaminophen 1 tab PO TID 05/04/20 05/05/20 History [Hydrocodone-Acetamin 10-325 mg] Mirtazapine [Remeron] 15 mg PO HS 05/04/20 05/04/20 History Omeprazole [Omeprazole 40mg 40 mg PO DAILY 05/04/20 05/04/20 History Capsule] Sacubitril/Valsartan [Entresto 49 1 tab PO BID 05/04/20 05/05/20 History mg-51 mg Tablet] carvediloL [Carvedilol 12.5mg Tab] 12.5 mg PO BID 05/04/20 05/04/20 History Fluticasone Propionate [Allergy 1 spray NS DAILY 05/05/20 05/05/20 History Relief] Glycopyrrolate/Formoterol Fum 2 puffs IH BID 05/05/20 05/05/20 History [Bevespi Aerosphere Inhaler] Height: 1.75 m Weight: 63.673 kg Laboratory Results:: Laboratory Results - last 24 hr 05/06/20 09:40: Blood Type A Positive, Antibody Screen Negative, Crossmatch (AHG) See Detail 05/06/20 19:45: Vancomycin Trough 7.1 05/06/20 21:55: Hgb 11.0 L D, Hct 34.2 L 05/07/20 05:15: Sodium 140, Potassium 4.0, Chloride 117 H, Carbon Dioxide 18 L D, Anion Gap 9.0, BUN 49 H, Creatinine 1.10, Estimated Creat Clear 56, Estimated GFR 66, Est GFR ( Amer) 80, Glucose 126 H, Calcium 8.9 D, Total Bilirubin 0.4, AST 46, ALT 11 L, Alkaline Phosphatase 83, Total Protein 5.1 L, Albumin 2.3 L D, Globulin 2.8, Albumin/Globulin Ratio 0.8 L Medical History: Reports:: Arrhythmia, Atrial Fibrillation, Cancer (STAGE 4 LUNG), Chronic Obstructive Pulmonary Disease (COPD), Coronary Artery Disease, Hyperlipidemia, Hypertension, Internal Pacemaker, Myocardial Infarction Denies:: Diabetes Mellitus Type 1, Diabetes Mellitus Type 2, MRSA Assessment and Plan (1) DAVID (acute kidney injury) Status: Acute Category: Medical Code(s): N17.9 - Acute kidney failure, unspecified (2) Hypotension Status: Acute Qualifiers: Hypotension type: unspecified hypotension type Qualified Code(s): I95.9 - Hypotension, unspecified Category: Medical Code(s): I95.9 - Hypotension, unspecified (3) Pneumonia due to COVID-19 virus Status: Acute Category: Medical Code(s): U07.1 - COVID-19; J12.82 - Pneumonia due to coronavirus disease 2019 (4) Lung cancer Status: Chronic Qualifiers: Laterality: unspecified laterality Lung location: unspecified part of lung Qualified Code(s): C34.90 - Malignant neoplasm of unspecified part of unspecified bronchus or lung Category: Medical Code(s): C34.90 - Malignant neoplasm of unspecified part of unspecified bronchus or lung (5) Anemia Status: Acute Category: Medical Code(s): D64.9 - Anemia, unspecified - Assessment and plan all Dx Assessment and Plan for all problems:: BASED ON PATIENT FACTORS AND VANCOMYCIN TROUGH LEVEL, RECOMMEND CHANGING INTERVAL TO VANCOMYCIN 1 GM IV Q12H. PHARMACY WILL CONTINUE TO MONITOR DAILY AND ADJUST APPROPRIATE.
--- NOTE | 2020-05-07 09:59 | PC.NURSE ---
Pt weaned to 85% FIO2 @ this time per RT.
--- NOTE | 2020-05-07 12:18 | PC.NURSE ---
Pt did refuse his breakfast and dinner tray, but agreeable to eating protein shake.
--- NOTE | 2020-05-07 14:01 | PC.NURSE ---
Addendum entered by Lissette Rehman RN 05/07/20 18:31: Correction 70% Original Note: Vapotherm turned down to 75% FIO2 @ this time per RT.
--- NOTE | 2020-05-07 14:19 | DIET.NUTRFU ---
Pt with very minimal PO intakes, refused majority of all meals (0-10%) yesterday and today, has been open to nutritional supplements. He did eat around 50% first day of admit. He feels he is consuming adequate fluid intake, and receiving low rate IVF. Of note pt had a black tarry stool today, normal bowel function prior. Weight has remained stable with 6#. Pt at risk malnutrition rt COVID with cancer and with weight loss of 8% body weight over past year. Varied TID supplements on diet order. Efforts encouragement/cueing at meal times and snack/supplement/meal replacement offerings from nursing appreciated.
--- NOTE | 2020-05-07 17:21 | PC.NURSE ---
Addendum entered by Lissette Rehman RN 05/07/20 18:32: Correction vapotherm settings are 30 L @ 70% Original Note: Pt has napped @ intervals this shift. Reports being very tired and overall just not feeling well. Remains on vapotherm, current settings @ 30L/75%, tolerating well sat in mid 90's @ rest. Lung sounds diminished, wheezing noted in RLL. IS encouraged, IS @ best = 500 cc. He does have a dry cough, but reports not able to cough anything up @ this time. Abdomen soft,non-tender w/ active BS in all quads. Pt did have one soft, tarry stool this afternoon. Voiding per urinal w/o difficulty. Appetite has been poor this shift, pt's did report that he likes spaghetti and he is currently eating that. No complaints voiced this shift. Call sobeida w/in reach.
--- NOTE | 2020-05-07 23:02 | PC.NURSE ---
Pt resting in bed at this time with periods of soa. Vapotherm was titrated from 30L 70% to 30L 90% early in shift due to desat in upper 70s and had difficulty recovering. Pt is currently 98%. Other VSS. Will continue to monitor.
[2020-05-08] VITALS (13 sets, daily range): BP systolic 104–126; BP diastolic 70–81; PULSE 63–116; RESP 26–47; TEMP 36.3–36.6; O2SAT 86–98; BMI 20.2
--- NOTE | 2020-05-08 04:11 | PC.NURSE ---
shift summary pts lung sounds are diminished sats maintained 90% or above on vapotherm with a rate ranging from 30-36. pt does not tolerate activity well upon movement pts sats drop to 70-75%, pt is currently on 30L on vapotherm with 80% fio2. pts is alert and oriented X4. pt uses bedside urinal urine clear and yellow in color. pt denies nausea or vomiting but does have black tarry stool.
[2020-05-08 05:47] LABS: Basophils % 0.3 % (0.1-2.0); Hemoglobin 9.4 g/dL (14.1-18.0); Lymphocytes # 0.8 K/mm3 (0.7-4.5); Lymphocytes % 9.4 % (10-50); Mean Corpuscular HGB Conc 31.3 g/dL (31.8-35.4); Mean Corpuscular Hemoglobin 25.4 pg (27.0-31.2); Mean Corpuscular Volume 81.3 fl (80-94); Mean Platelet Volume 8.7 fl (7.4-10.4); Monocytes # 0.4 K/mm3 (0.1-1.0); Monocytes % 4.2 % (1.7-9.3); Neutrophils # 7.2 K/mm3 (1.8-7.8); Platelet Count 131 K/mm3 (142-424); Red Blood Count 3.68 M/mm3 (4.60-6.20); Red Cell Distribution Width 23.3 % (11.5-17.5); White Blood Count 8.3 K/mm3 (4.8-10.8)
[2020-05-08 05:50] LABS: Hematocrit 29.9 % (42.0-52.0)
[2020-05-08 05:51] LABS: MANUAL DIFFERENTIAL MANUAL DIFFERENTIAL (MANUAL DIFF)
[2020-05-08 06:00] LABS: Chloride 118 mmol/L (98-107); Potassium 3.5 mmoL/L (3.5-5.1); Sodium 140 mmol/L (136-145)
[2020-05-08 06:03] LABS: Alanine Aminotransferase 34 U/L (12-78); Albumin Level 2.1 g/dl (3.5-5.0); Albumin/Globulin Ratio 0.8 (1.1-1.8); Alkaline Phosphatase 100 U/L (38-126); Anion Gap 6.5 mEq/L (5-15); Anisocytosis 2+; Aspartate Amino Transferase 74 U/L (17-59); Bilirubin,Total 0.5 mg/dl (0.2-1.3); Blood Urea Nitrogen 52 mg/dl (9-20); Calcium 8.9 mg/dl (8.4-10.2); Carbon Dioxide 19 mmol/L (22.0-30.0); Creatinine Clearance Estimated 55 mL/min (50-200); Eosinophils % 1 % (0-3); Estimated Glomerular Filt Rate 66 ml/min (>60); GFR (African American) 80 ML/MIN (>60); Globulin 2.7 g/dL (1.3-3.2); Glucose 126 mg/dl (74-100); Hypochromasia 1+; Lymphocytes % 6 % (10-50); Microcytosis 1+; Neutrophils % 89 % (42-76); Platelet Estimate Slight Decrease; Total Cells Counted 100; Total Protein,Serum 4.8 g/dl (6.3-8.2)
[2020-05-08 06:04] LABS: Magnesium 1.7 mg/dl (1.6-2.3)
--- NOTE | 2020-05-08 08:54 | HMH.ACPN2 ---
Internal Medicine - PN: Subj *Date: 05/08/20 *Time: 08:54 Interval history: Patient has been on Vapotherm, has stabilized on his settings. Feels comfortable, alert, eating and drinking well. Exam Vital signs and Labs for Last 24 Hours: Temp Pulse Resp BP Pulse Ox 97.5 F L 116 H 47 H 126/81 86 L 05/08/20 08:00 05/08/20 08:00 05/08/20 08:00 05/08/20 08:00 05/08/20 08:00 Laboratory Results - last 24 hr 05/08/20 05:10: Sodium 140, Potassium 3.5, Chloride 118 H, Carbon Dioxide 19 L, Anion Gap 6.5, BUN 52 H, Creatinine 1.10, Estimated Creat Clear 55, Estimated GFR 66, Est GFR ( Amer) 80, Glucose 126 H, Calcium 8.9, Magnesium 1.7, Total Bilirubin 0.5, AST 74 H D, ALT 34 D, Alkaline Phosphatase 100, Total Protein 4.8 L, Albumin 2.1 L, Globulin 2.7, Albumin/Globulin Ratio 0.8 L 05/08/20 05:10: WBC 8.3 D, RBC 3.68 L, Hgb 9.4 L, Hct 29.9 L, MCV 81.3, MCH 25.4 L, MCHC 31.3 L, RDW 23.3 H, Plt Count 131 L, MPV 8.7, Neut % (Auto) 86.0 H, Lymph % (Auto) 9.4 L, [place] % (Auto) 4.2, Eos % (Auto) 0.0 L, Baso % (Auto) 0.3, Neut # (Auto) 7.2, Lymph # (Auto) 0.8, [place] # (Auto) 0.4, Eos # (Auto) 0.0, Baso # (Auto) 0.0, Total Counted 100, Neutrophils % (Manual) 89 H, Band Neutrophils % 4.0, Lymphocytes % (Manual) 6 L, Eosinophils % (Manual) 1, Platelet Estimate Slight decrease, Hypochromasia 1+, Anisocytosis 2+, Microcytosis 1+ I & O for Last 24 hours: Intake & Output 05/05/20 05/06/20 05/07/20 05/08/20 11:59 11:59 11:59 11:59 Intake Total 1321 / 1321 3381 / 3381 2507 / 2507 990 / 990 Output Total 1000 / 1000 3200 / 3200 1225 / 1225 Balance 1321 / 1321 2381 / 2381 -693 / -693 -235 / -235 Weight 132 lb 8 oz 136 lb 10.986 oz 140 lb 6 oz 137 lb 2.012 oz Microbiology Reports for the Last 24 Hours: Microbiology 05/04/20 15:08 Blood Blood Culture - Preliminary Staphylococcus epidermidis 05/04/20 15:08 Blood Blood Culture - Preliminary Staphylococcus hominis Narrative: Alert, oriented, wearing Vapotherm. Does not look cyanotic, vital signs look unremarkable. Lungs have some rhonchi but good air movement. Abdomen soft and nontender. Perfusion is good. Heart rate regular. Assessment and Plan (1) Pneumonia due to COVID-19 virus Status: Acute Category: Medical Code(s): U07.1 - COVID-19; J12.82 - Pneumonia due to coronavirus disease 2019 (2) DAVID (acute kidney injury) Status: Resolved Category: Medical Code(s): N17.9 - Acute kidney failure, unspecified (3) Hypotension Status: Resolved Qualifiers: Hypotension type: unspecified hypotension type Qualified Code(s): I95.9 - Hypotension, unspecified Category: Medical Code(s): I95.9 - Hypotension, unspecified (4) Lung cancer Status: Chronic Qualifiers: Laterality: right Lung location: lower lobe of lung Qualified Code(s): C34.31 - Malignant neoplasm of lower lobe, right bronchus or lung Category: Medical Code(s): C34.90 - Malignant neoplasm of unspecified part of unspecified bronchus or lung (5) Anemia Status: Acute Category: Medical Code(s): D64.9 - Anemia, unspecified - Assessment and plan all Dx Assessment and Plan for all problems:: Patient's oxygen requirement is stabilized. Continues to be very high risk given his multiple comorbidities. Continue supportive oxygen care, fluids and nutritional status. Check chest x-ray and labs tomorrow morning.
--- NOTE | 2020-05-08 08:55 | XR_ITS ---
PROCEDURE: XR CHEST PORTABLE CLINICAL HISTORY: f/u icu exam Follow-up Covid19 pneumonia COMPARISON: CT CT ANGIO CHEST from 11/03/2019 CR XR CHEST PORTABLE from 11/03/2019 CR XR CHEST PORTABLE from 12/16/2019 CR XR CHEST PORTABLE from 05/04/2020 FINDINGS: There has been a prior CABG. Bipolar pacemaker is present from left subclavian approach. Right subclavian MediPort catheter is present with tip in the region the SVC. Patchy peripheral infiltrate is present in the right upper lobe and right midlung laterally with infiltrate also present in the left lower lobe consistent with bilateral pneumonia. The interstitial edema has improved. No evidence of pneumothorax. IMPRESSION: Worsening right-sided pneumonia. No change left lower lobe pneumonia. Improvement in interstitial edema. Dictated by: Jaun Kumar MD 05/08/2020 10:14 Jaun Kumar MD in [facility] 05/08/2020 10:14
--- NOTE | 2020-05-08 13:04 | HMH.ACPN ---
Internal Medicine - PN: Subj *Date: 05/08/20 *Time: 13:04 Exam Vital signs and Labs for Last 24 Hours: Temp Pulse Resp BP Pulse Ox 97.5 F L 63 28 H 104/73 L 88 L 05/08/20 12:00 05/08/20 12:00 05/08/20 12:00 05/08/20 12:00 05/08/20 12:00 Laboratory Results - last 24 hr 05/08/20 05:10: Sodium 140, Potassium 3.5, Chloride 118 H, Carbon Dioxide 19 L, Anion Gap 6.5, BUN 52 H, Creatinine 1.10, Estimated Creat Clear 55, Estimated GFR 66, Est GFR ( Amer) 80, Glucose 126 H, Calcium 8.9, Magnesium 1.7, Total Bilirubin 0.5, AST 74 H D, ALT 34 D, Alkaline Phosphatase 100, Total Protein 4.8 L, Albumin 2.1 L, Globulin 2.7, Albumin/Globulin Ratio 0.8 L 05/08/20 05:10: WBC 8.3 D, RBC 3.68 L, Hgb 9.4 L, Hct 29.9 L, MCV 81.3, MCH 25.4 L, MCHC 31.3 L, RDW 23.3 H, Plt Count 131 L, MPV 8.7, Neut % (Auto) 86.0 H, Lymph % (Auto) 9.4 L, [place] % (Auto) 4.2, Eos % (Auto) 0.0 L, Baso % (Auto) 0.3, Neut # (Auto) 7.2, Lymph # (Auto) 0.8, [place] # (Auto) 0.4, Eos # (Auto) 0.0, Baso # (Auto) 0.0, Total Counted 100, Neutrophils % (Manual) 89 H, Band Neutrophils % 4.0, Lymphocytes % (Manual) 6 L, Eosinophils % (Manual) 1, Platelet Estimate Slight decrease, Hypochromasia 1+, Anisocytosis 2+, Microcytosis 1+ I & O for Last 24 hours: Intake & Output 05/05/20 05/06/20 05/07/20 05/08/20 23:59 23:59 23:59 23:59 Intake Total 3414 / 3414 2435 / 2435 2350 / 2350 120 / 120 Output Total 2775 / 3300 2075 / 2525 575 / 575 Balance 3414 / 3414 -340 / -865 275 / -175 -455 / -455 Weight 60 kg 62 kg 63.673 kg 62.199 kg Assessment and Plan (1) Pneumonia due to COVID-19 virus Status: Acute Category: Medical Code(s): U07.1 - COVID-19; J12.82 - Pneumonia due to coronavirus disease 2019 (2) DAVID (acute kidney injury) Status: Resolved Category: Medical Code(s): N17.9 - Acute kidney failure, unspecified (3) Hypotension Status: Resolved Qualifiers: Hypotension type: unspecified hypotension type Qualified Code(s): I95.9 - Hypotension, unspecified Category: Medical Code(s): I95.9 - Hypotension, unspecified (4) Lung cancer Status: Chronic Qualifiers: Laterality: right Lung location: lower lobe of lung Qualified Code(s): C34.31 - Malignant neoplasm of lower lobe, right bronchus or lung Category: Medical Code(s): C34.90 - Malignant neoplasm of unspecified part of unspecified bronchus or lung (5) Anemia Status: Acute Category: Medical Code(s): D64.9 - Anemia, unspecified The patient's infection will respond to the chosen ABx?: Yes Is the patient receiving the right drug, dose, and route?: Yes Could a more targeted ABx be ordered?: No
--- NOTE | 2020-05-08 17:32 | PC.NURSE ---
No acute changes this shift. Has slept most of shift, reports being very tired and overall not feeling well still. Offered to help pt sit up in chair earlier, but stated he didn't feel up to it at this time. Remains on vapotherm @ 30 L/80%. Lungs remain diminished throughout. Pt had a persistent dry, non-productive cough this AM, medicated per MAR w/ Robitussin w/ noted relief. With activity pt will desat to low 80's, high 70's. When he desats he is slow to recover, at times taking as long as 15 minutes to return to 90%. IS encourage throughout shift. HR regular. NSR w/ on noted occasional pacer spikes on demand. Abdomen is flat, non-tender w/ hypoactive BS in all quads. Appetite has been extremely poor this shift. Encouraged to drink protein shake every meal. Pt is voiding per urinal/BSC independently w/o difficulty. Staff will be standby assistance for pt safety. Pt has had 3 tarry stool this shift. No needs voiced this shift. Family updated on pt POC and condition. Call sobeida w/in reach.
[2020-05-09] VITALS (19 sets, daily range): BP systolic 96–148; BP diastolic 61–99; PULSE 64–130; RESP 19–35; TEMP 36.4–36.6; O2SAT 83–98; BMI 20.2
--- NOTE | 2020-05-09 05:07 | ECG_ITS ---
APPROVED REPORT Exam: Resting ECG HR:106 bpm ECG Measurements Heart Rate 106 AXES NV 122 P 75 QRSd 84 QRS 21 QT 354 T 19 QTc 470 Conclusion Sinus tachycardia Low voltage QRS Nonspecific T wave abnormality Abnormal ECG Electronically signed by : Yonas Jorge, 05/09/2020 07:10:07
--- NOTE | 2020-05-09 06:13 | PC.NURSE ---
pt has not rested well this shift, has had a non productive, dry cough t/o shift, PRN med given 1 X with no relief in cough, lung sounds diminished with coarse crackles noted in the right lower lobe, vapotherm has remained in place at 30 L, 80% until 0500, pt desats with any activity to mid 70's to 80, at beginning of shift was able to recover within 5 to 10 minutes to 90%, as shift progressed, recovery took longer at 0458 pt up to use BSC and HR increased to 160-170, pt complained of chest pain, rating it 8/10, was diaphoretic, stat EKG obtained and 0.4 mg given at 0503, at 0508 rated pain at 4, 0.4 mg of nitro given with relief of chest pain achieved, 0639 pt complained of chest pain again, rapid red called, Dr. Gill at bedside (see consult rapid response intervention)
--- NOTE | 2020-05-09 06:49 | ECG_ITS ---
APPROVED REPORT Exam: Resting ECG HR:113 bpm ECG Measurements Heart Rate 113 AXES WI 130 P 61 QRSd 90 QRS -17 QT 326 T -49 QTc [address] & T wave abnormality, consider inferior ischemia Abnormal ECG Electronically signed by : Yonas Jorge, 05/09/2020 07:09:58
--- NOTE | 2020-05-09 06:50 | ECG_ITS ---
APPROVED REPORT Exam: Resting ECG HR:116 bpm ECG Measurements Heart Rate 116 AXES QRSd 98 QRS -12 QT 346 T 169 QTc 480 Conclusion Accelerated Junctional rhythm with fusion complexes Low voltage QRS Abnormal ECG Electronically signed by : Yonas Jorge, 05/09/2020 07:09:35
--- NOTE | 2020-05-09 06:53 | XR_ITS ---
PROCEDURE: XR CHEST PORTABLE CLINICAL HISTORY: RAPID RED/ CHEST PAIN COMPARISON: CT CT ANGIO CHEST from 11/03/2019 CR XR CHEST PORTABLE from 12/16/2019 CR XR CHEST PORTABLE from 05/04/2020 CR XR CHEST PORTABLE from 05/08/2020 FINDINGS: Bipolar pacemaker is present from left subclavian approach. Right subclavian MediPort catheter present with the tip in the region the SVC. The right CP angle is cut on the image. There is diffuse bilateral pneumonia which appears slightly worse. No evidence of pneumothorax. There has been a prior CABG. There is some sparing of the right lung base from the pneumonia. No acute bony abnormalities. IMPRESSION: Diffuse bilateral pneumonia slightly worse. No evidence of pneumothorax. Dictated by: Jaun Kumar MD 05/09/2020 07:02 Jaun Kumar MD in [facility] 05/09/2020 07:02
[2020-05-09 06:57] LABS: Basophils # 0.1 K/mm3 (0-0.2); Basophils % 0.5 % (0.1-2.0); Eosinophils % 0.1 % (0.1-12.0); Hemoglobin 9.2 g/dL (14.1-18.0); Lymphocytes # 1.7 K/mm3 (0.7-4.5); Lymphocytes % 9.3 % (10-50); Mean Corpuscular HGB Conc 32.1 g/dL (31.8-35.4); Mean Corpuscular Hemoglobin 25.9 pg (27.0-31.2); Mean Corpuscular Volume 80.8 fl (80-94); Mean Platelet Volume 8.8 fl (7.4-10.4); Monocytes # 0.7 K/mm3 (0.1-1.0); Monocytes % 3.7 % (1.7-9.3); Neutrophils # 15.2 K/mm3 (1.8-7.8); Neutrophils % 86.3 % (37.0-80.0); Platelet Count 125 K/mm3 (142-424); Red Blood Count 3.55 M/mm3 (4.60-6.20); White Blood Count 17.6 K/mm3 (4.8-10.8)
[2020-05-09 07:00] LABS: Hematocrit 28.7 % (42.0-52.0)
[2020-05-09 07:01] LABS: MANUAL DIFFERENTIAL MANUAL DIFFERENTIAL (MANUAL DIFF)
[2020-05-09 07:06] LABS: Chloride 119 mmol/L (98-107); Potassium 3.6 mmoL/L (3.5-5.1); Sodium 143 mmol/L (136-145)
[2020-05-09 07:08] LABS: Alanine Aminotransferase 44 U/L (12-78); Anisocytosis 3+; Aspartate Amino Transferase 60 U/L (17-59); Blood Urea Nitrogen 46 mg/dl (9-20); Creatinine Clearance Estimated 55 mL/min (50-200); Estimated Glomerular Filt Rate 66 ml/min (>60); GFR (African American) 80 ML/MIN (>60); Lymphocytes % 10 % (10-50); Microcytosis 1+; Neutrophils % 89 % (42-76); Platelet Estimate Slight Decrease; Poikilocytosis 2+; Total Cells Counted 100
[2020-05-09 07:09] LABS: Albumin Level 2.3 g/dl (3.5-5.0); Albumin/Globulin Ratio 0.9 (1.1-1.8); Alkaline Phosphatase 152 U/L (38-126); Anion Gap 9.6 mEq/L (5-15); Bilirubin,Total 0.6 mg/dl (0.2-1.3); Carbon Dioxide 18 mmol/L (22.0-30.0); Globulin 2.6 g/dL (1.3-3.2); Glucose 94 mg/dl (74-100); Total Protein,Serum 4.9 g/dl (6.3-8.2)
[2020-05-09 07:10] LABS: Calcium 9.2 mg/dl (8.4-10.2)
--- NOTE | 2020-05-09 07:18 | HMH.RR ---
Acute Rapid Response Note - Subjective Date Responded: 05/09/20 Time Responded: 06:15 Provider Note: pt had episode of chest pain in icu - pt with increased hr - on arrival feeling better after 2 nitro - Objective Findings: Vital Signs - Last 4 Hours Temperature 97.7 F 05/09/20 04:00 Temperature Source Oral 05/09/20 04:00 Pulse Rate 85 05/09/20 04:00 Respiratory Rate 24 05/09/20 04:00 TAR Vitals Timing 1 Hour Post Infusion 05/06/20 21:36 Blood Pressure 116/61 05/09/20 04:00 Blood Pressure Mean 79 05/09/20 04:00 Blood Pressure Source Automatic Cuff 05/09/20 04:00 Blood Pressure Position Supine 05/09/20 04:00 02 Sat by Pulse Oximetry 90 L 05/09/20 05:23 Oxygen Delivery Method 05/09/20 07:00 Oxygen Flow Rate (LPM) 40 05/09/20 05:23 Lab Results for Past 12 Hours 05/09/20 06:45: Sodium 143, Potassium 3.6, Chloride 119 H, Carbon Dioxide 18 L, Anion Gap 9.6, BUN 46 H, Creatinine 1.10, Estimated Creat Clear 55, Estimated GFR 66, Est GFR ( Amer) 80, Glucose 94, Calcium 9.2, Total Bilirubin 0.6, AST 60 H, ALT 44 D, Alkaline Phosphatase 152 H, Total Protein 4.9 L, Albumin 2.3 L, Globulin 2.6, Albumin/Globulin Ratio 0.9 L 05/09/20 06:45: WBC 17.6 H D, RBC 3.55 L, Hgb 9.2 L, Hct 28.7 L, MCV 80.8, MCH 25.9 L, MCHC 32.1, RDW 24.0 H, Plt Count 125 L, MPV 8.8, Neut % (Auto) 86.3 H, Lymph % (Auto) 9.3 L, [place] % (Auto) 3.7, Eos % (Auto) 0.1, Baso % (Auto) 0.5, Neut # (Auto) 15.2 H, Lymph # (Auto) 1.7, [place] # (Auto) 0.7, Eos # (Auto) 0.0, Baso # (Auto) 0.1, Total Counted 100, Neutrophils % (Manual) 89 H, Band Neutrophils % 1.0, Lymphocytes % (Manual) 10, Platelet Estimate Slight decrease, Poikilocytosis 2+, Anisocytosis 3+, Microcytosis 1+ My Orders Category Date Time Status Morphine Sulfate [Morphine 4mg/mL syringe] Med 05/09/20 07:15 Discontinued 4 mg IV ONCE ONE Nitroglycerin [Nitroglycerin 1 Inch Oint Udp] Med 05/09/20 07:15 Discontinued 1 gm TD ONCE ONE Nitroglycerin [Nitrostat 0.4mg SL Tablet] Med 05/09/20 05:58 Active 0.4 mg SL Q5MINP PRN - Radiology Findings #1 Xray Reviewed: Chest Image Reviewed: Yes I reviewed the patient's radiology image ED XR Results: Abnormal (has sig covid type changes - sl worse than prev ) - ECG Data Tracing #1 Arrhythmias present: sinus tach Ischemic changes: ST elevation EKG compared to prior tracings: this ECG reveals significant changes (st elevation v1/v2) Rapid Response Exam - General General appearance: alert, cachectic - Head Head exam: normocephalic - Eye Eye exam: Present: PERRL, EOMI - ENT ENT exam: Present: mucous membranes dry - Neck Neck exam: Present: trachea midline - Respiratory Respiratory exam: Present: other (dec bs bilat ). Absent: respiratory distress - Cardiovascular Cardiovascular exam: Present: tachycardia, systolic murmur - Abdominal Exam Abdominal exam: Present: soft - Extremities Exam Extremities exam: Absent: calf tenderness - Neurological Exam Neurological exam: Present: alert, CN II-XII intact - Psychiatric Psychiatric exam: Present: anxious - Skin Skin exam: Absent: rash RR Procedures/Assess/Plan (1) Unstable angina Status: Acute (2) ECG abnormality Status: Acute - Assessment and plan all Dx Assessment and Plan for all problems:: nitro and morphine and will discuss with card
[2020-05-09 07:23] LABS: Troponin I 0.51 ng/ml (0.00-0.034)
--- NOTE | 2020-05-09 08:55 | CT_ITS ---
PROCEDURE: CT ANGIO CHEST CLINCIAL INDICATION: dyspnea and chest pain COMPARISON: CT CT ANGIO CHEST from 11/03/2019 TECHNIQUE: IV Contrast: 70ML Isovue 370 Axial images obtained with sagittal and coronal reformats. All CT scans at the facility use one or more dose reduction, viz: automated exposure control, ma/kV adjustment per patient size (including targeted exams where dose is matched to indication, i.e. head), or iterative reconstruction technique. FINDINGS: No evidence of aortic dissection or aneurysm. No evidence of pulmonary embolus. Bipolar pacemaker is present left subclavian approach. There has been a prior CABG. There is diffuse coronary artery calcification. There is diffuse pulmonary fibrosis as previously described. There is ground-glass consolidation of the right upper lobe, lateral and posterior aspect of the right middle lobe, left upper lobe centrally and posteriorly, lingula, and left lower lobe with a background of pulmonary fibrosis consistent with diffuse bilateral pneumonia. Covid19 pneumonia is considered. No effusions. No abscess. Many previously noted pulmonary nodules are obscured mostly by the pneumonia. There are some subpleural nodules in the right lower lobe superior segment unchanged measuring up 2 8 mm. Spiculated nodule in the right lower lobe posteriorly is once again noted at 1.5 cm previously 2 cm. No acute bony findings. Subtle hypodense area of decreased attenuation in the left hepatic lobe at the falciform ligament region is noted. Previously there was an enhancing nodule at this area. This measures approximately 1.3 cm. There is a right renal cyst. The adrenal glands are unremarkable. Atherosclerotic changes with mixed calcific and soft plaque noted in the abdominal aorta inferior to the renal arteries IMPRESSION: 1. No evidence of pulmonary embolus. 2. Diffuse bilateral pneumonia with diffuse ground-glass attenuation in the background of pulmonary fibrosis. Covid19 pneumonia is considered 3. Spiculated mass right lower lobe posteriorly appears slightly smaller. There are few other scattered small pulmonary nodules most of which are obscured by the pneumonia. 4. Possible liver lesion versus fatty infiltration in the left hepatic lobe Dictated by: Jaun Kumar MD 05/09/2020 10:14 Jaun Kumar MD in [facility] 05/09/2020 10:14
--- NOTE | 2020-05-09 08:59 | HMH.ACPN2 ---
Internal Medicine - PN: Subj *Date: 05/09/20 *Time: 08:59 Interval history: Some chest pain and diaphoresis. Rapid response reviewed-input appreciated. Patient's troponin levels are actually lower than on admission. He remains dyspneic this morning but his chest pain is resolved as has diaphoresis. He is alert. Oxygen requirements are about the same. Exam Vital signs and Labs for Last 24 Hours: Temp Pulse Resp BP Pulse Ox 97.6 F 120 H 30 H 148/99 H 89 L 05/09/20 07:59 05/09/20 08:00 05/09/20 08:16 05/09/20 07:59 05/09/20 08:00 Laboratory Results - last 24 hr 05/09/20 06:45: WBC 17.6 H D, RBC 3.55 L, Hgb 9.2 L, Hct 28.7 L, MCV 80.8, MCH 25.9 L, MCHC 32.1, RDW 24.0 H, Plt Count 125 L, MPV 8.8, Neut % (Auto) 86.3 H, Lymph % (Auto) 9.3 L, [place] % (Auto) 3.7, Eos % (Auto) 0.1, Baso % (Auto) 0.5, Neut # (Auto) 15.2 H, Lymph # (Auto) 1.7, [place] # (Auto) 0.7, Eos # (Auto) 0.0, Baso # (Auto) 0.1, Total Counted 100, Neutrophils % (Manual) 89 H, Band Neutrophils % 1.0, Lymphocytes % (Manual) 10, Platelet Estimate Slight decrease, Poikilocytosis 2+, Anisocytosis 3+, Microcytosis 1+ 05/09/20 06:45: Sodium 143, Potassium 3.6, Chloride 119 H, Carbon Dioxide 18 L, Anion Gap 9.6, BUN 46 H, Creatinine 1.10, Estimated Creat Clear 55, Estimated GFR 66, Est GFR ( Amer) 80, Glucose 94, Calcium 9.2, Total Bilirubin 0.6, AST 60 H, ALT 44 D, Alkaline Phosphatase 152 H, Troponin I 0.51 H, Total Protein 4.9 L, Albumin 2.3 L, Globulin 2.6, Albumin/Globulin Ratio 0.9 L I & O for Last 24 hours: Intake & Output 05/06/20 05/07/20 05/08/20 05/09/20 11:59 11:59 11:59 11:59 Intake Total 3381 / 3381 2507 / 2507 1110 / 1110 1188 / 1188 Output Total 1000 / 1000 3200 / 3200 1225 / 1225 1375 / 1375 Balance 2381 / 2381 -693 / -693 -115 / -115 -187 / -187 Weight 136 lb 10.986 oz 140 lb 6 oz 137 lb 2.012 oz 136 lb 6 oz Narrative: Patient appears dyspneic, with pulse rates in the 115 range. Heart rate rapid, no new murmurs. Lungs have rhonchi bilaterally. Abdomen soft. Neurologically intact. Oropharynx clear. No new rashes. Assessment and Plan (1) Unstable angina Status: Acute Category: Medical Code(s): I20.0 - Unstable angina (2) ECG abnormality Status: Acute Category: Medical Code(s): R94.31 - Abnormal electrocardiogram [ECG] [EKG] (3) Anemia Status: Acute Category: Medical Code(s): D64.9 - Anemia, unspecified (4) Pneumonia due to COVID-19 virus Status: Acute Category: Medical Code(s): U07.1 - COVID-19; J12.82 - Pneumonia due to coronavirus disease 2019 (5) Lung cancer Status: Chronic Qualifiers: Laterality: right Lung location: lower lobe of lung Qualified Code(s): C34.31 - Malignant neoplasm of lower lobe, right bronchus or lung Category: Medical Code(s): C34.90 - Malignant neoplasm of unspecified part of unspecified bronchus or lung (6) Atypical chest pain Status: Acute Category: Medical Code(s): R07.89 - Other chest pain - Assessment and plan all Dx Assessment and Plan for all problems:: 1. Chest pain issues with dyspnea-cardiac ischemia seems relatively unlikely. I reviewed EKGs with cardiology. I do not really see much change and they agree, troponin levels are actually down. Repeat troponins this morning. If elevated would consider cardiac intervention. 2. Dyspnea-more likely to have pulmonary embolism given his extremely elevated risk factors. Has been on prophylactic Lovenox. Will escalate this dose to 1 mg/kg. Stat CTA this morning. I will not do a D-dimer as it will not impact clinical decision-making. 3. Multilobar pneumonia. Currently on broad-spectrum antibiotics in addition to COVID-19 therapy. Lung disease clearly impacts his overall condition. However oxygenation is stable. 4. Nutrition-n.p.o. until after CAT scan. Nurses have been doing a good job of encouraging patient to drink protein shakes. 5. ICU care-on DVT prophylaxis as
[2020-05-09 09:23] LABS: Vancomycin,Trough 19.1 ug/mL (5.0-10.0)
[2020-05-09 09:27] LABS: Troponin I 0.41 ng/ml (0.00-0.034)
--- NOTE | 2020-05-09 09:55 | ECG_ITS ---
APPROVED REPORT Exam: Resting ECG HR:111 bpm ECG Measurements Heart Rate 111 AXES CO 184 P 74 QRSd 96 QRS 237 QT 324 T 235 QTc 440 Conclusion Sinus tachycardia Low voltage QRS Septal infarct, age undetermined Lateral infarct, age undetermined Marked ST abnormality, possible inferior subendocardial injury Abnormal ECG Electronically signed by : Yonas Jorge, 05/09/2020 17:14:20
--- NOTE | 2020-05-09 10:18 | PC.NURSE ---
Pt downstairs per wheelchair for CTA @ 0930. Pt placed on non-rebreather for transport. This nurse and Malachi Cooney w/ pt @ this time. When returning from room @ 0948 pt was placed back on bedside monitor. Upon transferring from wheelchair to bed, pt begain to c/o chest pressure and being SOA. Pt placed back on vapotherm as well as non- rebreather. On telemetry it appeared that pt was in v-tach, rate 130, BP 96/65. EKG brought to bedside, by the time pt was hooked up to leads rhythm had changed back to sinus tach. This was reported to Dr. Jorge @ 0963. No new orders @ this time. Pt currently resting w/ eyes closed. Most recent VS : 118/76, HR 100, resp rate 24, temp 97.7, 96% on vapotherm @ 40/100%.
--- NOTE | 2020-05-09 11:16 | HMH.PHACONS ---
- Pharmacy Consult Date: 05/09/20 Time: 11:16 Referring provider: DR. ISBELL Reason for Consult:: VANCOMYCIN TROUGH LEVEL Allergies and ADEs:: Allergies Allergy/AdvReac Type Severity Reaction Status Date / Time No Known Allergies Allergy Verified 05/04/20 13:09 Home Medications:: Home Medications Medication Instructions Recorded Confirmed Type atorvastatin 80 mg tablet 80 mg PO DAILY tab 06/18/17 05/04/20 History aspirin 81 mg tablet,delayed 81 mg PO DAILY 11/01/17 05/04/20 History release tamsulosin 0.4 mg capsule 0.4 mg PO DAILY cap 03/27/19 05/04/20 History Ticagrelor [Brilinta 90mg 90 mg PO BID 11/03/19 05/04/20 History Tablet] temazepam 15 mg capsule 15 mg PO HS cap 02/19/20 05/04/20 History Codeine Phosphate/Guaifenesin 5 ml PO NEEDED PRN 05/04/20 05/04/20 History [Virtussin AC 10-100 mg/5 ml Lq] Folic Acid 1 mg PO DAILY 05/04/20 05/04/20 History Hydrocodone/Acetaminophen 1 tab PO TID 05/04/20 05/05/20 History [Hydrocodone-Acetamin 10-325 mg] Mirtazapine [Remeron] 15 mg PO HS 05/04/20 05/04/20 History Omeprazole [Omeprazole 40mg 40 mg PO DAILY 05/04/20 05/04/20 History Capsule] Sacubitril/Valsartan [Entresto 49 1 tab PO BID 05/04/20 05/05/20 History mg-51 mg Tablet] carvediloL [Carvedilol 12.5mg Tab] 12.5 mg PO BID 05/04/20 05/04/20 History Fluticasone Propionate [Allergy 1 spray NS DAILY 05/05/20 05/05/20 History Relief] Glycopyrrolate/Formoterol Fum 2 puffs IH BID 05/05/20 05/05/20 History [Bevespi Aerosphere Inhaler] Height: 1.75 m Weight: 61.859 kg Laboratory Results:: Laboratory Results - last 24 hr 05/09/20 06:45: WBC 17.6 H D, RBC 3.55 L, Hgb 9.2 L, Hct 28.7 L, MCV 80.8, MCH 25.9 L, MCHC 32.1, RDW 24.0 H, Plt Count 125 L, MPV 8.8, Neut % (Auto) 86.3 H, Lymph % (Auto) 9.3 L, [place] % (Auto) 3.7, Eos % (Auto) 0.1, Baso % (Auto) 0.5, Neut # (Auto) 15.2 H, Lymph # (Auto) 1.7, [place] # (Auto) 0.7, Eos # (Auto) 0.0, Baso # (Auto) 0.1, Total Counted 100, Neutrophils % (Manual) 89 H, Band Neutrophils % 1.0, Lymphocytes % (Manual) 10, Platelet Estimate Slight decrease, Poikilocytosis 2+, Anisocytosis 3+, Microcytosis 1+ 05/09/20 06:45: Sodium 143, Potassium 3.6, Chloride 119 H, Carbon Dioxide 18 L, Anion Gap 9.6, BUN 46 H, Creatinine 1.10, Estimated Creat Clear 55, Estimated GFR 66, Est GFR ( Amer) 80, Glucose 94, Calcium 9.2, Total Bilirubin 0.6, AST 60 H, ALT 44 D, Alkaline Phosphatase 152 H, Troponin I 0.51 H, Total Protein 4.9 L, Albumin 2.3 L, Globulin 2.6, Albumin/Globulin Ratio 0.9 L 05/09/20 08:50: Vancomycin Trough 19.1 H 05/09/20 08:50: Troponin I 0.41 H Medical History: Reports:: Arrhythmia, Atrial Fibrillation, Cancer (STAGE 4 LUNG), Chronic Obstructive Pulmonary Disease (COPD), Coronary Artery Disease, Hyperlipidemia, Hypertension, Internal Pacemaker, Myocardial Infarction Denies:: Diabetes Mellitus Type 1, Diabetes Mellitus Type 2, MRSA Assessment and Plan (1) Unstable angina Status: Acute Category: Medical Code(s): I20.0 - Unstable angina (2) ECG abnormality Status: Acute Category: Medical Code(s): R94.31 - Abnormal electrocardiogram [ECG] [EKG] (3) Anemia Status: Acute Category: Medical Code(s): D64.9 - Anemia, unspecified (4) Pneumonia due to COVID-19 virus Status: Acute Category: Medical Code(s): U07.1 - COVID-19; J12.82 - Pneumonia due to coronavirus disease 2019 (5) Lung cancer Status: Chronic Qualifiers: Laterality: right Lung location: lower lobe of lung Qualified Code(s): C34.31 - Malignant neoplasm of lower lobe, right bronchus or lung Category: Medical Code(s): C34.90 - Malignant neoplasm of unspecified part of unspecified bronchus or lung (6) Atypical chest pain Status: Acute Category: Medical Code(s): R07.89 - Other chest pain - Assessment and plan all Dx Assessment and Plan for all problems:: BASED ON PATIENT FACTORS AND TROUGH LEVEL, RECOMMEND CHANGING INTERVAL OF VANCOM
--- NOTE | 2020-05-09 17:22 | PC.NURSE ---
No acute changes since this AM note. Has denied chest pain. Pt has rested majority of shift aside from staff entering room for care and checking on pt. Remains on 40 L/ 100%, majority of shift pt has been in low to mid 90's. When pt is asleep his sat will be in high 90's, w/ any activity he will desat as he has the previous shifts. Lungs remain dim throughout. Nebs were changed this shift to xoponex because of pt's tachycardia. I have offered pt cough medicine, but he states that it does not help. HR regular, has been tachycardic while awake but willl decrease to 70-80's while sleeping. Abdomen soft, flat, non-tender w/ hypoactive BS. Appetite remains extremely poor. Staff have encouraged eating and liquids. Pt has drank today, but refuses all food. No BM this shift. Voiding per [facility] w/ standby assistance for pt safety. Urine is clear and drk yellow. Skin intact. No edema present. Staff have offered to bathe pt, pt refuses offer. Pt was changed into hopsital gown this AM, but requested to keep his pants on. Bed linens changed. Spoke w/ pt's sig other who wishes to have family facetime with him, I have spoke w/ pt about this and he states he is too tired and not feeling well enough to do this at this time. Updated s/o on plan of care and this AM's events. No further needs voiced from pt. Call vidales is w/in reach.
--- NOTE | 2020-05-09 20:30 | PC.NURSE ---
Reviewed code status with pt. Pt stated he wants to be intubated if needed and wants everything done possible. Pt remains full code.
--- NOTE | 2020-05-09 22:00 | PC.NURSE ---
2054 while taking PO meds pt had a 24 beat run of V-tac with a pulse rat of 172 but converted back to sinus rhythm in less than 1 minute
[2020-05-10] VITALS (50 sets, daily range): BP systolic 77–131; BP diastolic 45–80; PULSE 69–115; RESP 18–42; TEMP 36.2–36.8; O2SAT 87–100
--- NOTE | 2020-05-10 01:47 | PC.NURSE ---
Around 0030, Pt desat in 70s while on Vapotherm 40L 100%. 100% NRB was placed on pt. O2 sats recovered. Attempted to take NRB off and O2 declined again. NRB was placed back on pt to maintain O2 sats. was notified. OK to leave NRB on along with Vapotherm to maintain sats.
--- NOTE | 2020-05-10 02:39 | PC.NURSE ---
Pt hypotensive this AM. BP 88/60. MD notified. NS 500 ml bolus ordered and carried out.
--- NOTE | 2020-05-10 03:18 | PC.NURSE ---
was notified of sepsis protocol and hypotension. Additional 1360 ml in addition to 500 ml bolus ordered and currently infusing.
[2020-05-10 04:41] LABS: Basophils % 0.3 % (0.1-2.0)
[2020-05-10 04:45] LABS: Lymphocytes # 0.9 K/mm3 (0.7-4.5); Lymphocytes % 5.4 % (10-50); Mean Corpuscular HGB Conc 31.2 g/dL (31.8-35.4); Mean Corpuscular Hemoglobin 26.1 pg (27.0-31.2); Mean Corpuscular Volume 83.6 fl (80-94); Mean Platelet Volume 12.3 fl (7.4-10.4); Monocytes # 0.6 K/mm3 (0.1-1.0); Monocytes % 3.6 % (1.7-9.3); Neutrophils # 15.3 K/mm3 (1.8-7.8); Neutrophils % 90.7 % (37.0-80.0); Platelet Count 114 K/mm3 (142-424); Red Blood Count 2.94 M/mm3 (4.60-6.20); White Blood Count 16.9 K/mm3 (4.8-10.8)
[2020-05-10 04:46] LABS: Hematocrit 24.6 % (42.0-52.0); Hemoglobin 7.7 g/dL (14.1-18.0); Red Cell Distribution Width 25.4 % (11.5-17.5)
[2020-05-10 04:48] LABS: MANUAL DIFFERENTIAL MANUAL DIFFERENTIAL (MANUAL DIFF); Potassium 4.5 mmoL/L (3.5-5.1); Sodium 143 mmol/L (136-145)
[2020-05-10 04:51] LABS: Alanine Aminotransferase 40 U/L (12-78); Albumin/Globulin Ratio 0.8 (1.1-1.8); Alkaline Phosphatase 129 U/L (38-126); Anion Gap 6.5 mEq/L (5-15); Aspartate Amino Transferase 227 U/L (17-59); Bilirubin,Total 1.2 mg/dl (0.2-1.3); Blood Urea Nitrogen 49 mg/dl (9-20); Carbon Dioxide 17 mmol/L (22.0-30.0); Creatinine Clearance Estimated 60 mL/min (50-200); Estimated Glomerular Filt Rate 74 ml/min (>60); GFR (African American) 89 ML/MIN (>60); Globulin 2.5 g/dL (1.3-3.2); Glucose 104 mg/dl (74-100); Total Protein,Serum 4.5 g/dl (6.3-8.2)
[2020-05-10 04:54] LABS: Lactic Acid 2.2 mmol/L (0.7-2.1)
[2020-05-10 04:55] LABS: Chloride 124 mmol/L (98-107)
[2020-05-10 04:56] LABS: Calcium 8.2 mg/dl (8.4-10.2)
[2020-05-10 04:58] LABS: Anisocytosis 3+; Lymphocytes % 4 % (10-50); Neutrophils % 94 % (42-76); Platelet Estimate Slight Decrease; Total Cells Counted 100
[2020-05-10 04:59] LABS: Burr Cells 2+; Hypochromasia 1+; Microcytosis 1+; Poikilocytosis 3+; Tear Drop Cells 2+
--- NOTE | 2020-05-10 04:59 | PC.NURSE ---
Critical lab value Hgb 7.7. Hct 24.6. notified.
--- NOTE | 2020-05-10 05:37 | PC.NURSE ---
notified of persistent hypotension and Hgb/Hct. Pt placed on Levophed gtt. Pt is currently on 8 mcg/min at this time.
--- NOTE | 2020-05-10 06:59 | PC.NURSE ---
rhythm change noted at 0636 and converted back to sinus rhythm before ekg could be obtained see chart for review.
--- NOTE | 2020-05-10 07:00 | CA_ITS ---
APPROVED REPORT EXAM: Comprehensive 2D, Doppler, and color-flow Echocardiogram Medical Anthropology Director: Farideh Domingo RVT Ht: 5 ft 8 in Wt: 136lbs BSA: 1.73 BP: 105/66 mmHg Indications: CP,COVID PNEUMONIA,SOA,A-FIB,PACER,CM,LUNG CA,CABG,COPD,HTN,HLD TDS-PT VERY ANXIOUS,VERY SOA,COUGHING 2D Dimensions LVOT 1.97 cm (M/F) 1.5-2.5 LA Volume 21.60 mL LA Volume Index 12.48 mL/m2 (M/F) 16-34 M-Mode Dimensions RVDd 1.89 cm (0.9-2.6) LA Diam 3.59 cm (1.9-4.0) LVDd 6.38 cm (3.5-5.7) Ao Diam 3.59 cm (2.0-3.7) LVDs 5.14 cm (3.5-5.7) IVSd 0.68 cm (0.6-1.1) PWd 0.61 cm (0.6-1.1) EF (Teich) 39.10% FS 19.40% EDV (Teich) 207.00 mL ESV (Teich) 126.10 mL LV Diastology MED E' 6.50 (< 7 cm/sec) LAT E' 7.30 (<10 cm/sec) Pulmonary Valve PV Peak Velocity 125.00 (50-150 cm/s) Tricuspid Valve TR P. Velocity 236.00 cm/s RAP Estimate 10.00 mmHg RVSP 32.40 mmHg Left Ventricle Left atrium is mildly enlarged, left ventricle is mildly dilated, there is severe reduced left ventricular systolic function, visually estimated ejection fraction 30%, there is marked hypokinesis involving mid to distal septum, anterior, anterior apical, apical and inferior apical wall. Diastolic parameters are inconclusive. Right Ventricle Right atrium and right ventricle are normal size and contractility, there is catheter noted in the right ventricle which is likely an AICD lead. Aortic Valve Aortic valve is minimally thickened and fibrosed, there is no aortic stenosis or aortic insufficiency. Mitral Valve Mitral valve leaflets are minimally thickened, there is mild mitral regurgitation. Tricuspid Valve Tricuspid valve is grossly normal, there is trace tricuspid regurgitation, tricuspid regurgitation jet velocity is inadequate for calculation of the right ventricular systolic pressure. Pulmonic Valve Pulmonic valve is poorly visualized. Great Vessels Aortic root is normal size. Pericardium No significant pericardial effusion noted. Conclusion 1. Mildly dilated left ventricle, severe reduced left ventricular systolic function, visually estimated ejection fraction 30% with multiple segmental wall motion abnormality described above, diastolic parameters are inconclusive. 2. Mild mitral and trace tricuspid regurgitation. 3. No significant pericardial effusion noted. Electronically signed by : Kareem Szymanski, 05/10/2020 13:55:53
--- NOTE | 2020-05-10 08:10 | HMH.ACPN2 ---
Internal Medicine - PN: Subj *Date: 05/10/20 *Time: 08:10 Interval history: Patient did not do well overnight. Continues to have dysrhythmias. Hypotensive and now is on Levophed drip. Remains awake but complains of breathlessness. Echocardiogram pending. EF looks significantly depressed on my preliminary view. Exam Vital signs and Labs for Last 24 Hours: Temp Pulse Resp BP Pulse Ox 97.6 F 92 H 32 H 96/65 L 93 L 05/10/20 08:00 05/10/20 08:00 05/10/20 08:00 05/10/20 08:00 05/10/20 08:00 Laboratory Results - last 24 hr 05/09/20 08:50: Vancomycin Trough 19.1 H 05/09/20 08:50: Troponin I 0.41 H 05/10/20 04:24: WBC 16.9 H, RBC 2.94 L, Hgb 7.7 L*, Hct 24.6 L, MCV 83.6, MCH 26.1 L, MCHC 31.2 L, RDW 25.4 H*, Plt Count 114 L, MPV 12.3 H, Neut % (Auto) 90.7 H, Lymph % (Auto) 5.4 L, [place] % (Auto) 3.6, Eos % (Auto) 0.0 L, Baso % (Auto) 0.3, Neut # (Auto) 15.3 H, Lymph # (Auto) 0.9, [place] # (Auto) 0.6, Eos # (Auto) 0.0, Baso # (Auto) 0.0, Total Counted 100, Neutrophils % (Manual) 94 H, Band Neutrophils % 2.0, Lymphocytes % (Manual) 4 L, Platelet Estimate Slight decrease, Hypochromasia 1+, Poikilocytosis 3+, Anisocytosis 3+, Microcytosis 1+, Tear Drop Cells 2+, [place] Cells 2+ 05/10/20 04:24: Sodium 143, Potassium 4.5 D, Chloride 124 H, Carbon Dioxide 17 L, Anion Gap 6.5, BUN 49 H, Creatinine 1.00, Estimated Creat Clear 60, Estimated GFR 74, Est GFR ( Amer) 89, Glucose 104 H, Calcium 8.2 L D, Total Bilirubin 1.2, AST 227 H D, ALT 40, Alkaline Phosphatase 129 H, Total Protein 4.5 L, Albumin 2.0 L D, Globulin 2.5, Albumin/Globulin Ratio 0.8 L 05/10/20 04:24: Lactate 2.2 H I & O for Last 24 hours: Intake & Output 05/07/20 05/08/20 05/09/20 05/10/20 11:59 11:59 11:59 11:59 Intake Total 2507 / 2507 1110 / 1110 1188 / 1188 2820 / 2820 Output Total 3200 / 3200 1225 / 1225 1375 / 1375 1550 / 1550 Balance -693 / -693 -115 / -115 -187 / -187 1270 / 1270 Weight 140 lb 6 oz 137 lb 2.012 oz 136 lb 6 oz 135 lb 8 oz Narrative: Patient is alert. Dyspneic. Lots of rhonchi bilaterally, heart rate regular with occasional ectopic beats. No gallop audible but lung exam makes auscultation difficult. Soft abdomen. No edema noted. Neurologically intact but tired. Oropharynx clear. Assessment and Plan (1) Unstable angina Status: Acute Category: Medical Code(s): I20.0 - Unstable angina (2) ECG abnormality Status: Acute Category: Medical Code(s): R94.31 - Abnormal electrocardiogram [ECG] [EKG] (3) Anemia Status: Acute Category: Medical Code(s): D64.9 - Anemia, unspecified (4) Pneumonia due to COVID-19 virus Status: Acute Category: Medical Code(s): U07.1 - COVID-19; J12.82 - Pneumonia due to coronavirus disease 2019 (5) Lung cancer Status: Chronic Qualifiers: Laterality: right Lung location: lower lobe of lung Qualified Code(s): C34.31 - Malignant neoplasm of lower lobe, right bronchus or lung Category: Medical Code(s): C34.90 - Malignant neoplasm of unspecified part of unspecified bronchus or lung (6) Atypical chest pain Status: Acute Category: Medical Code(s): R07.89 - Other chest pain - Assessment and plan all Dx Assessment and Plan for all problems:: Overall worsening condition. Overall poor prognosis. Cardiology evaluation to review echo and assess dysrhythmia issues. Pulmonary evaluation for respiratory failure with hypoxia from Covid.
[2020-05-10 08:43] LABS: Lactic Acid 2.8 mmol/L (0.7-2.1)
[2020-05-10 09:16] LABS: ABG PH 7.45 mmol/L (7.35-7.45)
[2020-05-10 09:18] LABS: ABG HCO3 12.4 mmhg (22.0-26.0); ABG PCO2 18.5 mmhg (35.0-45.0); ABG PO2 66.7 mmhg (80-100)
[2020-05-10 09:19] LABS: ABG Base Excess -10.1 mmol/L (-2.4-2.3); ABG Oxygen Saturation 92 % (90-100); Allen's Test Non Applicable
[2020-05-10 09:20] LABS: Source Left Brachial
--- NOTE | 2020-05-10 10:03 | HMH.PULMCON ---
*Admission Date: 05/04/20 *Reason for consult:: Acute hypoxic respiratory failure, COVID-19 pneumonia *History of present illness: Mr. Greene is a 69-year-old prior smoker carries a diagnosis of COPD, stage IV lung cancer [facility], [facility] on [facility] May with worsening hypoxic respiratory failure and pulmonary was called for further management. 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 Patient denies any use of home oxygen. Patient denies any fevers or chills or any worsening productive phlegm before presenting to the hospital. Patient also tested positive for COVID-19. [facility] History Medical History: Reports:: Arrhythmia, Atrial Fibrillation, Cancer (STAGE 4 LUNG), Chronic Obstructive Pulmonary Disease (COPD), Coronary Artery Disease, Hyperlipidemia, Hypertension, Internal Pacemaker, Myocardial Infarction Denies:: Diabetes Mellitus Type 1, Diabetes Mellitus Type 2, MRSA *Have you ever received a pneumonia vaccine?: No *Have you received a flu vaccine this season?: No Other Medical History: Reports: Arthritis, Chemotherapy Other Surgeries: Yes: CABG, Cardiac Catheterization, Cardiac Surgery, Coronary Stent, Hernia Repair, Pacemaker Amputation: No Fractures: No - *Social History Smoking Status: Unknown if ever smoked Tobacco Type: cigarettes # Packs/Day (cigarettes): 1 Alcohol Intake: never Alcohol Intake Frequency:: other Substance Use Type: denies use *Occupational Status:: disabled Housing: house Household Members: significant other, children *Travel in the last 8 weeks: None Family Hx:: No significant family history ROS - Cons Reports body ache(s), Reports chills - Card Reports chest pain, Reports shortness of breath, Reports shortness of breath with activity - Resp Respiratory: Reports shortness of breath, Reports cough, Reports non-productive cough - GI Gastrointestingal: Reports: system reviewed and no additional complaints, except as docu - Psych Reports abnormal sleep pattern Meds Home Medications Medication Instructions Recorded Confirmed Type atorvastatin 80 mg tablet 80 mg PO DAILY tab 06/18/17 05/04/20 History aspirin 81 mg tablet,delayed 81 mg PO DAILY 11/01/17 05/04/20 History release tamsulosin 0.4 mg capsule 0.4 mg PO DAILY cap 03/27/19 05/04/20 History Ticagrelor [Brilinta 90mg 90 mg PO BID 11/03/19 05/04/20 History Tablet] temazepam 15 mg capsule 15 mg PO HS cap 02/19/20 05/04/20 History Codeine Phosphate/Guaifenesin 5 ml PO NEEDED PRN 05/04/20 05/04/20 History [Virtussin AC 10-100 mg/5 ml Lq] Folic Acid 1 mg PO DAILY 05/04/20 05/04/20 History Hydrocodone/Acetaminophen 1 tab PO TID 05/04/20 05/05/20 History [Hydrocodone-Acetamin 10-325 mg] Mirtazapine [Remeron] 15 mg PO HS 05/04/20 05/04/20 History Omeprazole [Omeprazole 40mg 40 mg PO DAILY 05/04/20 05/04/20 History Capsule] Sacubitril/Valsartan [Entresto 49 1 tab PO BID 05/04/20 05/05/20 History mg-51 mg Tablet] carvediloL [Carvedilol 12.5mg Tab] 12.5 mg PO BID 05/04/20 05/04/20 History Fluticasone Propionate [Allergy 1 spray NS DAILY 05/05/20 05/05/20 History Relief] Glycopyrrolate/Formoterol Fum 2 puffs IH BID 05/05/20 05/05/20 History [Bevespi Aerosphere Inhaler] Allergies Allergy/AdvReac Type Severity Reaction Status Date / Time No Known Allergies Allergy Verified 05/04/20 13:09 Exam - Constitutional Constitutional:: Absent: no acute distress, comfortable - HENMT Exam HENMT: Present: atraumatic - Eye Exam Eyes:: Present: eyelids normal - Neck Exam Neck:: Present: thyroid normal - Respiratory Exam Respiratory:: Present: normal breath sounds, respiratory distress, crackles, wheezing Comments: Patient in moderate respiratory
[2020-05-10 10:33] LABS: Adenovirus,PCR Not Detected (NotDetected); Bordetella Pertussis Not Detected (NotDetected); Chlamydophila Pneumoniae, PCR Not Detected (NotDetected); Coronavirus 229E Not Detected (NotDetected); Coronavirus NL63 Not Detected (NotDetected); Coronavirus OC43 Not Detected (NotDetected); Coronovirus HKU1,PCR Not Detected (NotDetected); Human Metapneumovirus Not Detected (NotDetected); Influenza A, PCR Not Detected (NotDetected); Influenza AH1, 2009 Not Detected (NotDetected); Influenza AH1, PCR Not Detected (NotDetected); Influenza AH3,PCR Not Detected (NotDetected); Influenza B, PCR Not Detected (NotDetected); Mycoplasma Pneumoniae, PCR Not Detected (NotDetected); Parainfluenza 1, PCR Not Detected (NotDetected); Parainfluenza 2, PCR Not Detected (NotDetected); Parainfluenza 3, PCR Not Detected (NotDetected); Parainfluenza 4, PCR Not Detected (NotDetected); Respiratory Syncytial Virus Not Detected (NotDetected); Rhinovirus/Enterovirus Not Detected (NotDetected)
--- NOTE | 2020-05-10 10:53 | HMH.CNCARD ---
History of Present Illness Consult date: 05/10/20 Requesting physician: Neal Hammond Chief complaint: V. fib, Cardiomyopathy, COVID infection, Pulm Fibrosis Additional Medical History:: 1. Ischemic cardiomyopathy with history of previous three-vessel bypass surgery 2002 A. [facility] Myoview, early 2016, ejection fraction 25% with no ischemia. B. [place] AICD implanted 06-23-[address] [facility], 01/2018, [place] to Left Main into Prox Dom Cx ANGIOGRAPHIC RESULTS: 1. The left main artery has an ostial 90% stenosis 2. The left anterior descending has an ostial 60-70% stenosis followed by a proximal 90% stenosis. 3 septal perforators are identified with no diagonal arteries. The LAD is then occluded following the last septal hand tapper. 3. The circumflex artery is a dominant vessel and has a proximal concentric 70% stenosis 4. The right coronary artery is a nondominant yet still large vessel which has proximal 40% stenoses mid vessel 50-60% stenoses. Distally there is a stent which is patent. The distal right coronary artery is a small vessel and branches into to less than 1 mm in diameter branches 5. The WONG ventriculogram reveals left ventricular dilatation mid anterior apical akinesis 6. The left ventricular end-diastolic pressure 10 mmHg 7. The left internal mammary artery ispatent to the mid LAD 8. No saphenous vein graft identified IMPRESSION: 1. Critical stenosis in the ostial left main artery supplying the unbypassed dominant circumflex artery 2. Successful stenting of the ostial proximal left main artery extending into the proximal dominant circumflex artery. Critical and severe disease reduced to 0% with 1 drug-eluting stent postdilated with a high pressure noncompliant balloon 3. Patent BARNEY to the LAD 4. Severe regional wall motion abnormality with severely reduced ejection fraction 5. Normal left ventricular end-diastolic pressure 2. Hypertension 3. Hyperlipidemia 4. COPD with continued tobacco use A. Lung Cancer, stage 4, getting chemotherapy, 2020 5. CKD, stage III 6. History of A. fib, 2019. Monitored by AICD. A. fib burden less than 1%. A. CHADS-VASC score of 4. 7. History of infrarenal AAA, 4 cm, stable by last scan, 06/2019 History of present illness: 69 yo WM admitted for COVID infection, pneumonia and increasing oxygen demand on top of lung cancer with chemotherapy treatment. Now with V. tach and AICD firing with suspected worsening ischemic cardiomyopathy. Currently on high flow Vapotherm at 40 L/min with Ventimask to keep oxygen saturation 95 to 100%. Patient short of breath at rest with conversational dyspnea of 2-3 words. He denies any chest pain, pressure or tightness. Currently telemetry shows sinus rhythm with controlled ventricular response. Patient did have an episode of ventricular tachycardia this a.m. with echocardiogram obtained thereafter to assess LV function. Patient has a known ischemic cardiomyopathy with ejection fraction of 30-35% for the last couple of years. His AICD was implanted in 2017. Downloads in the last year have shown some evidence of ventricular tachycardia which has been treated with carvedilol therapy. Remote history of atrial fibrillation but no evidence of this recently. [facility] History Medical History: Reports:: Arrhythmia, Atrial Fibrillation, Cancer (STAGE 4 LUNG), Chronic Obstructive Pulmonary Disease (COPD), Coronary Artery Disease, Hyperlipidemia, Hypertension, Internal Pacemaker, Myocardial Infarction Denies:: Diabetes Mellitus Type 1, Diabetes Mellitus Type 2, MRSA *Have you ever received a pneumonia vaccine?: No *Have you received a flu vaccine this season?: No Other Medical History: Reports: Arthritis, Chemotherapy Other Surgeries: Yes: CABG, Cardiac Catheterization, Cardiac Surgery, Coronary Stent, Hernia Repair, Pacemaker Amputation: No Fractures: No - *Social History Smoking Status: Unknown if ever smoked Tobacco Type: cigarettes # Packs/Day (c
[2020-05-10 10:57] LABS: C-Reactive Protein 85.6 mg/L (0-4)
[2020-05-10 12:40] LABS: Reflex Lactic Add Lactic Reflex
--- NOTE | 2020-05-10 13:07 | PC.NURSE ---
RESPIRATORY CARE NOTE: PT REFUSED ALL BREATHING TREATMENTS THIS AFTERNOON DUE TO NAUSEA AND VOMITING. PT CLAIMS HE BELIEVES THE TREATMENTS ARE MAKING HIM SICK . WILL CONTINUE TO TRY TO ADMINISTER BRONCHODILATORS AT A LATER TIME. WILL CONTINUE TO MONITOR PT MOVING FORWARD.
--- NOTE | 2020-05-10 14:30 | DIET.NUTRFU ---
Addendum entered by Clary Samuels 05/12/20 14:38: Pt intubated and remains NPO day 2. Pt not stable enough for initiation enteral nutrition at this time, continuing to monitor. Original Note: Pt has refused all food for 48h and with minimal intakes prior, he has been drinking some of protein shakes. He c/o nausea at times. He has had tarry black stools X4. Drop in H&H and BP noted. Weight is stable within 6#. Pt at risk malnutrition rt COVID with cancer and with weight loss of 8% body weight over past year. Varied TID supplements on diet order. Efforts encouragement/cueing at meal times and snack/supplement/meal replacement offerings from nursing appreciated.
[2020-05-10 14:36] LABS: Lactic Acid Follow Up (RFLX 1) 2.9 mmol/L (0.7-2.1)
[2020-05-10 14:38] LABS: C-Reactive Protein 86.3 mg/L (0-4)
[2020-05-10 15:40] LABS: Lactate Dehydrogenase 2004 U/L (313-618)
[2020-05-10 16:18] LABS: Reflex Lactic (2 hrs) Add Lactic Reflex
--- NOTE | 2020-05-10 17:12 | PC.NURSE ---
pt received day shift bath and room was wiped down, swept and mopped per day shift. pt refused breakfast, lunch and dinner. offered something to drink and also refused. RN aware.
[2020-05-10 17:30] LABS: Lactic Acid Follow up (RFLX 2) 4.5 mmol/L (0.7-2.1)
--- NOTE | 2020-05-10 18:01 | PC.NURSE ---
Patient remains on vapotherm at 40L/100% with 100% NRB in place for most of the day, second unit of PRBC transfusing at this time, patient remains alert and oriented x4, perrla, HR reg, no edema noted, lung sounds diminished t/o, abd soft and nontender, active bowel sounds in all quads, has had two liquid dark tarry stools this shift, has also vomited twice this shift dark emesis, voids per urinal, urine dark yellow, has refused all meals this shift, minimal po intake, only sips of water with medications, levophed drip infusing at 8mcg, amiodarone drip initiated today per cardiology order, will continue to monitor patient closely for changes.
--- NOTE | 2020-05-10 18:11 | PC.NURSE ---
PT REFUSED ALL NEB TREATMENTS FOR TONIGHT, STATED THAT THEY WERE MAKING HIM NAUSEOUS.
--- NOTE | 2020-05-10 19:34 | PC.NURSE ---
He is resting in bed. Continues with vapotherm at 40LPM 100% FiO2 with non-rebreather over vapotherm cannula. He denies SOA at rest. Denies pain. Intermittent non-productive cough present. Bigeminy on telemetry.
--- NOTE | 2020-05-10 21:00 | PC.NURSE ---
He continues to take off his vapotherm cannula and non-rebreather. His O2 drops to the 70s. Educated him on the importance of not removing his oxygen.
--- NOTE | 2020-05-10 21:21 | PC.NURSE ---
He continues to take off the vapotherm cannula and non-rebreather.
[2020-05-10 21:30] LABS: Hematocrit 37.1 % (42.0-52.0)
--- NOTE | 2020-05-10 21:41 | PC.NURSE ---
He is restless. Continuing to pull of oxygen. grooming salon manager paged.
[2020-05-10 21:44] LABS: Hemoglobin 11.8 g/dL (14.1-18.0)
--- NOTE | 2020-05-10 21:54 | PC.NURSE ---
He continues to be agitated and restless. Continues to take off his oxygen.
--- NOTE | 2020-05-10 23:28 | PC.NURSE ---
He is continuing to take off his vapotherm and non-rebreather.
[2020-05-11] VITALS (36 sets, daily range): BP systolic 77–165; BP diastolic 13–133; PULSE 70–119; RESP 25–40; TEMP 35.3–37.1; O2SAT 84–100; BMI 19.5
--- NOTE | 2020-05-11 00:19 | PC.NURSE ---
He continues to be restless. Taking O2 off, trying to stand up. He is tachypneic.
--- NOTE | 2020-05-11 01:02 | PC.NURSE ---
He has dislodged both of his peripheral IVs. New IV placed in RAC. Mittens placed on bilateral hands.
--- NOTE | 2020-05-11 01:54 | PC.NURSE ---
He continues to be restless. Pulling oxygen and telemetry leads off.
--- NOTE | 2020-05-11 02:44 | ECG_ITS ---
APPROVED REPORT Exam: Resting ECG HR:122 bpm ECG Measurements Heart Rate 122 AXES WI 160 P 38 QRSd 116 QRS 60 QT 412 T 80 QTc 587 Conclusion Sinus tachycardia Indeterminate axis Low voltage QRS LBBB Abnormal ECG Electronically signed by : Yonas Jorge, 05/11/2020 06:31:19
--- NOTE | 2020-05-11 06:49 | HMH.ACPN2 ---
Internal Medicine - PN: Subj *Date: 05/11/20 *Time: 09:29 Interval history: Mr. Greene has continued to have respiratory distress overnight. Saturations this morning in the mid 80s on maximal noninvasive support. Poor p.o. intake. Reviewed labs this morning showing worsening lactate, acute kidney injury, metabolic acidosis, and mild persistent elevation in liver enzymes. Patient is very agitated this morning and poorly responsive to verbal commands. Unable to assess review of systems. Appears tachypneic and short of breath. Arrhythmias stable. Extensive discussion with patient's medical surrogate this morning, Cris Daniels, his long-term partner. Family wants to proceed with all measures to give him a chance at survival. Agree with patient's wish of intubation. Exam Vital signs and Labs for Last 24 Hours: Temp Pulse Resp BP Pulse Ox 97.1 F L 99 H 42 H 113/74 92 L 05/10/20 23:54 05/11/20 06:33 05/10/20 23:54 05/11/20 04:00 05/11/20 06:33 Laboratory Results - last 24 hr 05/10/20 07:26: Lactate 2.8 H 05/10/20 08:42: Specimen Source Cancelled, O2 % Cancelled, ABG pH Cancelled, ABG pCO2 Cancelled, ABG pO2 Cancelled, ABG HCO3 Cancelled, ABG Total CO2 Cancelled, ABG O2 Saturation Cancelled, ABG Base Excess Cancelled, Jaun Test Cancelled, Vent Rate Cancelled, Tidal Volume Cancelled, PEEP Cancelled 05/10/20 09:02: Specimen Source Left brachial, O2 % Vapo 100, ABG pH 7.45, ABG pCO2 18.5 L, ABG pO2 66.7 L, ABG HCO3 12.4 L, ABG Total CO2 13.0 L, ABG O2 Saturation 92, ABG Base Excess -10.1 L, Jaun Test Non applicable, Tidal Volume Nrb at 15 05/10/20 09:13: Blood Type A Positive, Antibody Screen Negative, Crossmatch (AHG) See Detail 05/10/20 10:21: Chlamy pneumoniae PCR Not detected, Adenovirus (PCR) Not detected, B. pertussis DNA (PCR) Not detected, Coronavirus OC43 (PCR) Not detected, Coronavirus HKU1 (PCR) Not detected, Coronavirus 229E (PCR) Not detected, Coronavirus NL63 (PCR) Not detected, Human Metapneumovir PCR Not detected, Influenza A (H1) PCR Not detected, Influ A (H1N1/09) PCR Not detected, Influenza A (H3) PCR Not detected, Influenza Type A (PCR) Not detected, Influenza Type B (PCR) Not detected, M. pneumoniae (PCR) Not detected, Parainfluenza 1 (PCR) Not detected, Parainfluenza 2 (PCR) Not detected, Parainfluenza 3 (PCR) Not detected, Parainfluenza 4 (PCR) Not detected, RSV (PCR) Not detected, Entero/Rhino (PCR) Not detected 05/10/20 10:26: C-Reactive Protein 85.6 H 05/10/20 14:15: Lactate 2.9 H 05/10/20 14:15: Lactate Dehydrogenase 2004 H 05/10/20 14:15: C-Reactive Protein 86.3 H 05/10/20 17:10: Lactate 4.5 H 05/10/20 20:05: Hgb 11.8 L D, Hct 37.1 L I & O for Last 24 hours: Intake & Output 05/08/20 05/09/20 05/10/20 05/11/20 23:59 23:59 23:59 23:59 Intake Total 958 / 1208 1310 / 1310 2197.338 / 2197.338 Output Total 1450 / 1750 1275 / 1275 1400 / 1400 Balance -492 / -542 35 / 35 797.338 / 797.338 Weight 62.199 kg 61.859 kg 61.462 kg - Constitutional severe distress, thin, chronically ill appearing, agitated, somnolent - *Routine HEENT Exam Head: Present: normocephalic, atraumatic Eye: Present: PERRL ENT: Present: mucous membranes moist - *Routine Neck Exam Present: supple. Absent: lymphadenopathy - *Routine Respiratory Exam Present: accessory muscle use, respiratory distress. Absent: wheezes, crackles - *Routine Cardiovascular Exam Present: tachycardia. Absent: murmur - *Routine Abdominal Exam Present: soft, normoactive bowel sounds. Absent: tenderness - *Routine Extremities Exam Absent: cyanosis, clubbing, edema - *Routine Skin Exam Present: warm. Absent: rash Comments: Ecchymoses on right arm, hyperpigmented lesions diffusely on body - *Routine Neurological Exam Present: alert, altered mental status. Absent: oriented X3 Response to physical stimuli withdraws from pain, spontaneous movement, no verbal response/incomprehensible sounds Assessment and Plan (1) Unstable
[2020-05-11 07:05] LABS: Alanine Aminotransferase 39 U/L (12-78); Albumin/Globulin Ratio 0.8 (1.1-1.8); Alkaline Phosphatase 215 U/L (38-126); Anion Gap 17.3 mEq/L (5-15); Aspartate Amino Transferase 122 U/L (17-59); Bilirubin,Total 1.2 mg/dl (0.2-1.3); Blood Urea Nitrogen 60 mg/dl (9-20); Calcium 8.6 mg/dl (8.4-10.2); Chloride 124 mmol/L (98-107); Creatinine Clearance Estimated 39 mL/min (50-200); Estimated Glomerular Filt Rate 46 ml/min (>60); GFR (African American) 56 ML/MIN (>60); Globulin 2.6 g/dL (1.3-3.2); Glucose 172 mg/dl (74-100); Magnesium 2.2 mg/dl (1.6-2.3); Potassium 4.3 mmoL/L (3.5-5.1); Sodium 147 mmol/L (136-145); Total Protein,Serum 4.6 g/dl (6.3-8.2)
[2020-05-11 07:18] LABS: Carbon Dioxide 10 mmol/L (22.0-30.0); INR 1.69 (0.9-1.1); Lactic Acid 6.6 mmol/L (0.7-2.1); Prothrombin Time 19.2 seconds (9.4-11.8)
[2020-05-11 07:23] LABS: Basophils # 0.1 K/mm3 (0-0.2); Basophils % 0.3 % (0.1-2.0)
[2020-05-11 07:35] LABS: Ammonia 49 umol/L (9-30)
[2020-05-11 07:37] LABS: Hematocrit 33.9 % (42.0-52.0); Lymphocytes # 0.8 K/mm3 (0.7-4.5); Lymphocytes % 2.9 % (10-50); Mean Corpuscular HGB Conc 30.8 g/dL (31.8-35.4); Mean Corpuscular Hemoglobin 27.1 pg (27.0-31.2); Mean Corpuscular Volume 88.1 fl (80-94); Mean Platelet Volume 7.6 fl (7.4-10.4); Monocytes % 3.4 % (1.7-9.3); Neutrophils # 26.9 K/mm3 (1.8-7.8); Neutrophils % 93.4 % (37.0-80.0); Red Blood Count 3.84 M/mm3 (4.60-6.20); Red Cell Distribution Width 23.5 % (11.5-17.5); White Blood Count 28.9 K/mm3 (4.8-10.8)
--- NOTE | 2020-05-11 07:41 | PC.NURSE ---
Dr. Hammond @ [facility]. Notified him of critical lab results: lactic 6.6, Na 147, Cl 124, and CO2 10. BP 83/54. Levo gtt increased to 15mcg/min from 12mcg/min.
--- NOTE | 2020-05-11 08:50 | PC.NURSE ---
pt intubated @ 0850 by Shirin Marx. 7.5 ET tube is 28 @ the lip. OG tube is 57 @ the lip. Propofol gtt started @ 20mcg/kg/hr. Levo gtt infusing @ 12mcg/min. Amio gtt infusing @ 0.5mg/hr until 1pm. 16fr parra inserted and UA sent to lab. CRE rectal swab completed. Vent settings: 70%, AC, 440, 22, 10/-.
--- NOTE | 2020-05-11 08:57 | HMH.PROC ---
[facility] Procedure Note Procedure Note:: Consulted for tracheal intubation d/t worsening respiratory distress. Pt on 100% non-rebreather with 02 saturation ~88%. Unable to discuss plan of care with pt d/t condition, but family was notified of plan of care by Dr. Hammond. Fentanyl 50 mcg IV, Lidocaine 50 mg IV, Propofol 70 mg IV, Succinylcholine 120 mg IV. DVL x1 with Young 2 blade, dark red blood noted in oropharnyx, grade 1 view, 7.5 ETT secured at 21 cm at the lip on the right side. See nursing record for vital signs. Mechanical ventilation then started. Care turned back over to Dr. Hammond/Dr. Willett at this time. Thank you.
[2020-05-11 09:17] LABS: Hemoglobin 10.4 g/dL (14.1-18.0)
[2020-05-11 09:19] LABS: Platelet Count 48 K/mm3 (142-424)
[2020-05-11 09:20] LABS: MANUAL DIFFERENTIAL MANUAL DIFFERENTIAL (MANUAL DIFF)
--- NOTE | 2020-05-11 09:20 | PC.NURSE ---
notified Dr. Hammond that platelet count is 48.
[2020-05-11 09:49] LABS: Basophils # 0.2 K/mm3 (0-0.2); Basophils % 0.4 % (0.1-2.0); Hemoglobin 10.5 g/dL (14.1-18.0); Lymphocytes # 1.2 K/mm3 (0.7-4.5); Lymphocytes % 3.4 % (10-50); Mean Corpuscular HGB Conc 30.8 g/dL (31.8-35.4); Mean Corpuscular Hemoglobin 27.8 pg (27.0-31.2); Mean Corpuscular Volume 90.2 fl (80-94); Mean Platelet Volume 7.6 fl (7.4-10.4); Monocytes % 2.9 % (1.7-9.3); Neutrophils # 32.8 K/mm3 (1.8-7.8); Neutrophils % 93.3 % (37.0-80.0); Red Blood Count 3.77 M/mm3 (4.60-6.20); Red Cell Distribution Width 23.6 % (11.5-17.5); White Blood Count 35.2 K/mm3 (4.8-10.8)
[2020-05-11 09:50] LABS: Microscopic, Urine URINE MICROSCOPIC (MICROSCOPIC)
[2020-05-11 09:52] LABS: Appearance,Urine CLEAR (Clear); Bilirubin,Urine Negative (Negative); Blood, Urine 3+ (Negative); Color,Urine YELLOW (Yellow); Glucose,Urine (UA) Negative (Negative); Ketones,Urine Negative (Negative); Leukocyte Esterase,Urine Negative (Negative); Nitrate,Urine Negative (Negative); PH,Urine 5.5 (5.0-8.5); Protein,Urine 1+ (Negative); Specific Gravity, Urine >= 1.030 (1.005-1.030); Urobilinogen,Urine 0.2 EU/dl (0.2)
[2020-05-11 09:54] LABS: Platelet Count 45 K/mm3 (142-424)
--- NOTE | 2020-05-11 09:54 | XR_ITS ---
PROCEDURE: XR CHEST PORTABLE CLINICAL HISTORY: intubation COMPARISON: CR XR CHEST PORTABLE from 05/04/2020 CR XR CHEST PORTABLE from 05/08/[address] ANGIO CHEST from 05/09/2020 CR XR CHEST PORTABLE from 05/09/2020 FINDINGS: The cardiomediastinal silhouette and pulmonary vascularity are within normal limits. The NG tube is seen descending the esophagus with the tip extending off the lower edge of the film but projecting towards the greater curvature of the stomach. The diffuse bilateral pneumonic infiltrates are again seen most prominent right upper lobe. There probably has been some slight interval improvement in the left perihilar region left lower lobe since the most recent study 05/09/2020. The right subclavian central line is again seen with the tip above the junction of the SVC and right atrium. IMPRESSION: Satisfactory position of NG tube though the distal tip is not seen, possible slight interval improvement in the diffuse left infrahilar and left lower lobe pneumonic infiltrate compared to the most recent study Dictated by: Dr. Khalif Alexander MD 05/11/2020 10:28 Dr. Khalif Alexander MD in [place] 05/11/2020 10:28
[2020-05-11 09:56] LABS: ABG Base Excess -18.4 mmol/L (-2.4-2.3); ABG HCO3 11.5 mmhg (22.0-26.0); ABG Oxygen Saturation 94 % (90-100); ABG PCO2 38.7 mmhg (35.0-45.0); ABG PO2 94.2 mmhg (80-100); ABG TCO2 12.6 mmhg (23-27)
--- NOTE | 2020-05-11 09:56 | PC.NURSE ---
Fent gtt started @ 25mcg/hr per Dr. Willett
[2020-05-11 09:59] LABS: Oxygen 70 %; PEEP 10; Source R FEMORAL; Tidal Volume 440; Vent Rate 22
[2020-05-11 10:00] LABS: ABG PH 7.09 mmol/L (7.35-7.45); Lactate Arterial 5.6 mmol/L (0.4-2.0)
[2020-05-11 10:04] LABS: Anisocytosis 1+; Hypochromasia 1+; Lymphocytes % 6 % (10-50); Microcytosis 1+; Monocytes % 3 % (2-9); Neutrophils % 91 % (42-76); Platelet Estimate Marked Decrease; Total Cells Counted 100
--- NOTE | 2020-05-11 10:21 | PC.NURSE ---
BP 80/46 (57). Levo gtt increased to 15mcg/min
[2020-05-11 10:49] LABS: Reflex Lactic Add Lactic Reflex
--- NOTE | 2020-05-11 10:51 | HMH.PULMPN ---
Internal Medicine - PN: Subj *Date: 05/11/20 *Time: 10:51 Interval history: Patient respiratory hemodynamic status worsened from yesterday needing intubation and increasing pressor support Exam - Constitutional Comment:: Intubated and sedated. Appears comfortable. - HENMT Exam HENMT: Present: normocephalic, atraumatic - Eye Exam Eyes:: Present: eyelids normal - Neck Exam Neck:: Present: thyroid normal - Respiratory Exam Respiratory:: Present: bibailar crackels heard, crackles - Cardiovascular Exam Cardiac:: Present: S1, S2. Absent: regular rhythm - GI Exam GI:: Present: soft - Skin Exam Skin: Present: rash - Neurological Exam Intubated and sedated. - Extremities Exam Extremities: Present: no cyanosis, no clubbing, no edema Assessment and Plan (1) Unstable angina Status: Acute Category: Medical Code(s): I20.0 - Unstable angina (2) ECG abnormality Status: Acute Category: Medical Code(s): R94.31 - Abnormal electrocardiogram [ECG] [EKG] (3) Anemia Status: Acute Category: Medical Code(s): D64.9 - Anemia, unspecified (4) Pneumonia due to COVID-19 virus Status: Acute Category: Medical Code(s): U07.1 - COVID-19; J12.82 - Pneumonia due to coronavirus disease 2019 (5) Lung cancer Status: Chronic Qualifiers: Laterality: right Lung location: lower lobe of lung Qualified Code(s): C34.31 - Malignant neoplasm of lower lobe, right bronchus or lung Category: Medical Code(s): C34.90 - Malignant neoplasm of unspecified part of unspecified bronchus or lung (6) Atypical chest pain Status: Acute Category: Medical Code(s): R07.89 - Other chest pain (7) Ischemic cardiomyopathy with implantable cardioverter-defibrillator (ICD) Status: Acute Category: Medical Code(s): I25.5 - Ischemic cardiomyopathy; Z95.810 - Presence of automatic (implantable) cardiac defibrillator (8) Abdominal aortic aneurysm (AAA) 3.0 cm to 5.5 cm in diameter in male Status: Chronic Category: Medical Code(s): I71.4 - Abdominal aortic aneurysm, without rupture (9) Panlobular emphysema Status: Chronic Category: Medical Code(s): J43.1 - Panlobular emphysema (10) Systolic CHF Status: Chronic Qualifiers: Heart failure chronicity: chronic Qualified Code(s): I50.22 - Chronic systolic (congestive) heart failure Category: Medical Code(s): I50.20 - Unspecified systolic (congestive) heart failure (11) V tach Status: Resolved Category: Medical Code(s): I47.2 - Ventricular tachycardia - Assessment and plan all Dx Assessment and Plan for all problems:: #Acute hypoxic respiratory failure: #Pneumonia in immunocompromised: #Stage IV adenocarcinoma of the lung on chemoimmuno therapy: #COPD: 69-year-old male with significant smoking history, carries a diagnosis of stage IV adenocarcinoma currently receiving standard of care chemotherapy plus investigational PD-L1 immunotherapy at [facility] presented to the hospital with worsening respiratory failure and hypoxia. Patient found to be positive for COVID-19 pneumonia. Patient also noted to have staph hominis and staph epi bacteremia. - This patient also had ischemic cardiomyopathy with a EF of 30% with significant septal and apical wall motion abnormalities in the territory of LAD and left circumflex which were stented prior. His EF appeared to be stable as per cardiology note. -Patient also has dysrhythmias and will start an amiodarone drip. Also in severe shock needing vasopressors. Lactate trending up. -Patient also having GI bleed that was evident by his black tarry stools and blood clots suctioning during intubation as per anesthesia note patient also had significant blood clots suctioned from his lung post intubation. Plan: Intubated and sedated, will continue propofol and fentanyl for an hour sedation with a RASS goal of 0 to 11 and COPT goal of less than or equal to 2. Patient mentation normal
[2020-05-11 10:57] LABS: RBC,Urine 50-100 #/hpf (0-3)
[2020-05-11 10:58] LABS: Amorphous Sediment,Urine 1+ /lpf; Bacteria,Urine 2+ /lpf; Squamous Epithelial Cell,Urine Occasional #/hpf (0-5)
[2020-05-11 10:59] LABS: Coarse Granular Casts,Urine Occasional #/lpf (0)
--- NOTE | 2020-05-11 11:00 | PC.NURSE ---
SBP 80. Levo gtt increased to 20mcg/min.
--- NOTE | 2020-05-11 11:12 | PC.NURSE ---
spoke to Dr. Willett. He ordered a central line and and arterial line. Paged oncall surgeon (Dr. Denney). Updated Dr. Hammond.
--- NOTE | 2020-05-11 11:16 | HMH.PNCARD ---
Subjective Date: 05/11/20 Time: 11:16 Principal diagnosis: Resp Failure, V. tach Interval history: 69 yo WM with worsening respiratory situation requiring sedation[facility]. Cardiac arrhythmias have resolved on IV amiodarone per nurse. He continues on Levophed Holding Coreg and Entresto. EKG is sinus with IVCD/LBBB. Exam Vital signs and Labs for Last 24 Hours: Temp Pulse Resp BP Pulse Ox 97.1 F L 104 H 29 H 86/48 L 96 05/11/20 11:00 05/11/20 11:00 05/11/20 11:00 05/11/20 11:00 05/11/20 11:00 Laboratory Results - last 24 hr 05/10/20 09:13: Blood Type A Positive, Antibody Screen Negative, Crossmatch (AHG) See Detail 05/10/20 10:21: Chlamy pneumoniae PCR Not detected, Adenovirus (PCR) Not detected, B. pertussis DNA (PCR) Not detected, Coronavirus OC43 (PCR) Not detected, Coronavirus HKU1 (PCR) Not detected, Coronavirus 229E (PCR) Not detected, Coronavirus NL63 (PCR) Not detected, Human Metapneumovir PCR Not detected, Influenza A (H1) PCR Not detected, Influ A (H1N1/09) PCR Not detected, Influenza A (H3) PCR Not detected, Influenza Type A (PCR) Not detected, Influenza Type B (PCR) Not detected, M. pneumoniae (PCR) Not detected, Parainfluenza 1 (PCR) Not detected, Parainfluenza 2 (PCR) Not detected, Parainfluenza 3 (PCR) Not detected, Parainfluenza 4 (PCR) Not detected, RSV (PCR) Not detected, Entero/Rhino (PCR) Not detected 05/10/20 14:15: Lactate 2.9 H 05/10/20 14:15: Lactate Dehydrogenase 2004 H 05/10/20 14:15: C-Reactive Protein 86.3 H 05/10/20 17:10: Lactate 4.5 H 05/10/20 20:05: Hgb 11.8 L D, Hct 37.1 L 05/11/20 06:00: WBC 28.9 H* D, RBC 3.84 L D, Hgb 10.4 L D, Hct 33.9 L, MCV 88.1, MCH 27.1, MCHC 30.8 L, RDW 23.5 H, Plt Count 48 L* D, MPV 7.6, Neut % (Auto) 93.4 H, Lymph % (Auto) 2.9 L, [place] % (Auto) 3.4, Eos % (Auto) 0.0 L, Baso % (Auto) 0.3, Neut # (Auto) 26.9 H, Lymph # (Auto) 0.8, [place] # (Auto) 1.0, Eos # (Auto) 0.0, Baso # (Auto) 0.1, Total Counted 100, Neutrophils % (Manual) 91 H, Lymphocytes % (Manual) 6 L, Monocytes % (Manual) 3, Platelet Estimate Marked decrease, Hypochromasia 1+, Anisocytosis 1+, Microcytosis 1+ 05/11/20 06:15: Magnesium 2.2 05/11/20 06:15: Sodium 147 H, Potassium 4.3, Chloride 124 H, Carbon Dioxide 10 L D, Anion Gap 17.3 H, BUN 60 H, Creatinine 1.50 H D, Estimated Creat Clear 39, Estimated GFR 46 L, Est GFR ( Amer) 56 L D, Glucose 172 H, Calcium 8.6, Total Bilirubin 1.2, AST 122 H D, ALT 39, Alkaline Phosphatase 215 H, Total Protein 4.6 L, Albumin 2.0 L, Globulin 2.6, Albumin/Globulin Ratio 0.8 L 05/11/20 06:15: PT 19.2 H, INR 1.69 H 05/11/20 06:15: Lactate 6.6 H 05/11/20 06:15: Ammonia 49 H 05/11/20 09:00: Urine Color Yellow, Urine Appearance Clear, Urine pH 5.5, Ur Specific [place] >= 1.030, Urine Protein 1+, Urine Glucose (UA) Negative, Urine Ketones Negative, Urine Blood 3+, Urine Nitrate Negative, Urine Bilirubin Negative, Urine Urobilinogen 0.2, Ur Leukocyte Esterase Negative, Urine RBC 50-100, Urine WBC 5-10, Ur Squamous Epith Cells Occasional, Amorphous Sediment 1+, Urine Bacteria 2+, Coarse Granular Casts Occasional 05/11/20 09:25: WBC 35.2 H*, RBC 3.77 L, Hgb 10.5 L, Hct 34.0 L, MCV 90.2, MCH 27.8, MCHC 30.8 L, RDW 23.6 H, Plt Count 45 L*, MPV 7.6, Neut % (Auto) 93.3 H, Lymph % (Auto) 3.4 L, [place] % (Auto) 2.9, Eos % (Auto) 0.0 L, Baso % (Auto) 0.4, Neut # (Auto) 32.8 H, Lymph # (Auto) 1.2, [place] # (Auto) 1.0, Eos # (Auto) 0.0, Baso # (Auto) 0.2 05/11/20 09:43: Specimen Source R femoral, O2 % 70, ABG pH 7.09 L*, ABG pCO2 38.7, ABG pO2 94.2, ABG HCO3 11.5 L, ABG Total CO2 12.6 L, ABG O2 Saturation 94, ABG Base Excess -18.4 L, ABG Lactate 5.6 H, Vent Rate 22, Tidal Volume 440, PEEP 10 I & O for Last 24 hours: Intake & Output 05/08/20 05/09/20 05/10/20 05/11/20 11:59 11:59 11:59 11:59 Intake Total 1110 / 1110 1188 / 1188 2820 / 2820 337.338 / 337.338 Output Total 1225 / 1225 1375 / 1375 1750 / 1750 950 / 950 Balance -115 / -115 -187 / -187 1070 / 1070 -612.662 / -
--- NOTE | 2020-05-11 11:17 | PC.NURSE ---
BP 72/53. Levo gtt increased to 25mcg/min.
[2020-05-11 11:53] LABS: Lactic Acid Follow Up (RFLX 1) 3.9 mmol/L (0.7-2.1)
[2020-05-11 13:16] LABS: Reflex Lactic (2 hrs) Add Lactic Reflex
--- NOTE | 2020-05-11 13:41 | XR_ITS ---
PROCEDURE: XR CHEST PORTABLE CLINICAL HISTORY: central line placement COMPARISON: CR XR CHEST PORTABLE from 05/08/[address] ANGIO CHEST from 05/09/2020 CR XR CHEST PORTABLE from 05/09/2020 CR XR CHEST PORTABLE from 05/11/2020 FINDINGS: The portable chest from earlier this morning and now is a moderate size right pneumothorax following the recent placement of a 2nd right subclavian central line. The patient is rotated slightly to the left but I question the possibility of a mild degree of tension of this pneumothorax. The diffuse pneumonic infiltrate is again seen in the right perihilar region and right upper lobe and persistent infiltrates remain in the left lung with little change from the film earlier in the day. The endotracheal tube and NG tube remain in good position. IMPRESSION: New finding of moderate size right pneumothorax, the finding was called to the floor at the time of the reading of the exam 2:20 p.m. Dictated by: Dr. Khalif Alexander MD 05/11/2020 14:19 Dr. Khalif Alexander MD in [place] 05/11/2020 14:19
--- NOTE | 2020-05-11 14:57 | PC.NURSE ---
1140: Dr. Mccurdy @ to insert right SC TLDL and left radial arterial line. 1415: notified by rad that pt has right pneumo. 1422: Dr. Willett updated 1425: spoke to Yuki in [place], who updated Dr. Denney. Notified Dr. Mccurdy 1426: updated Dr. Hammond
--- NOTE | 2020-05-11 14:57 | PC.NURSE ---
spoke with significant other and updated her on patient status. informed her that patient has a pneumothorax and will be needing a chest tube. informed her that a surgeon has been consulted and will be up to do a chest tube. significant other verbalized understanding.
[2020-05-11 15:12] LABS: Lactic Acid Follow up (RFLX 2) 3.7 mmol/L (0.7-2.1)
--- NOTE | 2020-05-11 16:04 | XR_ITS ---
PROCEDURE: XR CHEST PORTABLE CLINICAL HISTORY: right chest tube follow-up pneumothorax and chest tube placement COMPARISON: CT CT ANGIO CHEST from 05/09/2020 CR XR CHEST PORTABLE from 05/09/2020 CR XR CHEST PORTABLE from 05/11/2020 CR XR CHEST PORTABLE from 05/11/2020 FINDINGS: 1632 hours Status post right-sided chest tube placement. The chest tube extends to the midline in the mid thoracic region. There has been marked interval decrease in size of the right pneumothorax with a small apical component. Endotracheal tube tip is in good position 3 cm above the leopoldo. Right subclavian MediPort catheter and right subclavian central line are present with the tips in the region the SVC. Bipolar pacemaker is present from left subclavian approach. There is a nasogastric tube present with the tip not visible but low the GE junction. Pneumonia is present in the right upper lobe, left upper lobe, and left lower lobe. IMPRESSION: As above. Interval chest tube insertion with marked decrease in size in right-sided pneumothorax. Other tubes and lines present as described above with bilateral pneumonia Dictated by: Jaun Kumar MD 05/11/2020 16:47 Jaun Kumar MD in [place] 05/11/2020 16:47
--- NOTE | 2020-05-11 16:06 | PC.NURSE ---
spoke with dr. marquez. he stated he wants hold lovenox. pharmacy notified to d/c on may. also stated he wanted to transfuse 1 unit of platelets. sushma, primary RN notified.
--- NOTE | 2020-05-11 16:06 | PC.NURSE ---
Dr. Denney inserted right 24fr chest tube to 20 sx.
--- NOTE | 2020-05-11 16:13 | HMH.PROC ---
[facility] Procedure Note Procedure Note:: Preoperative diagnosis: Right-sided pneumothorax Postoperative diagnosis: Same Procedure performed: Placement of 24 Estonian right thoracostomy tube Surgeon: Carmine Denney MD Indications: Patient is a 69-year-old male with stage IV lung cancer receiving experimental therapy via right subclavian port with left subclavian AICD in place who was admitted on 05/05/2020 with known diagnosis of Covid which had failed outpatient management. Patient has had clinical deterioration and was intubated on mechanical ventilation this morning. Pulmonology asked for central line placement and arterial line placement due to patient being on multiple pressors. Cardiology placed an arterial line and a right subclavian triple-lumen catheter. Post procedure chest x-ray revealed moderate sized right pneumothorax. Plan was made for chest tube placement. Procedure description: Consent was obtained. Patient's right chest was prepped and draped in the standard surgical fashion. Local anesthetic was infiltrated in the region of the anterior axillary line. Incision was made. Dissection was carried down through subcutaneous tissues and over the rib spreading the intercostal muscles. Right pleural space was then entered with a good jeter of air obtained. 24 Estonian chest tube was manipulated into the right pleural space. It was secured at the skin with a 0 silk suture. Dressing was applied. Chest tube was secured to the Pleur-evac device. There was noticeable air leak present. Chest x-ray is ordered. No immediate complications.
[2020-05-11 17:06] LABS: ABG Base Excess -17.4 mmol/L (-2.4-2.3); ABG HCO3 12.8 mmhg (22.0-26.0); ABG Oxygen Saturation 92 % (90-100); ABG PCO2 46.3 mmhg (35.0-45.0); ABG PO2 84.8 mmhg (80-100); ABG TCO2 14.3 mmhg (23-27)
[2020-05-11 17:07] LABS: Oxygen 70 %; PEEP 10; Source AL; Tidal Volume 440; Vent Rate 22
[2020-05-11 17:08] LABS: ABG PH 7.06 mmol/L (7.35-7.45)
--- NOTE | 2020-05-11 17:30 | PC.NURSE ---
per Dr. Willett: give 1amp Bicarb NOW and increase gtt to 125mL/hr. Orders faxed to [place] pharmacy.
--- NOTE | 2020-05-11 17:44 | PC.NURSE ---
ATTTEMPTED TO CALL SIG. OTHER TO UPDATE ON DECLINE IN PATIENT STATUS. LEFT MESSAGE FOR RETURN CALL.
--- NOTE | 2020-05-11 18:03 | PC.NURSE ---
BP 71/33 (46). Levo gtt @ 30mcg/min. Mehrdad gtt increased to 50mcg/min.
--- NOTE | 2020-05-11 18:19 | PC.NURSE ---
BP 90/32 (52). Mehrdad gtt increased to 60mcg/min. is now @ BS.
[2020-05-11 18:35] LABS: Basophils # 0.1 K/mm3 (0-0.2); Basophils % 0.2 % (0.1-2.0); Hematocrit 27.8 % (42.0-52.0); Lymphocytes # 0.9 K/mm3 (0.7-4.5); Lymphocytes % 2.9 % (10-50); Mean Corpuscular HGB Conc 30.4 g/dL (31.8-35.4); Mean Corpuscular Hemoglobin 27.4 pg (27.0-31.2); Mean Corpuscular Volume 90.1 fl (80-94); Mean Platelet Volume 7.4 fl (7.4-10.4); Monocytes # 1.2 K/mm3 (0.1-1.0); Monocytes % 3.7 % (1.7-9.3); Neutrophils # 29.9 K/mm3 (1.8-7.8); Neutrophils % 93.1 % (37.0-80.0); Red Blood Count 3.09 M/mm3 (4.60-6.20); Red Cell Distribution Width 24.4 % (11.5-17.5); White Blood Count 32.1 K/mm3 (4.8-10.8)
[2020-05-11 18:45] LABS: Platelet Count 44 K/mm3 (142-424)
--- NOTE | 2020-05-11 18:45 | PC.NURSE ---
notified Dr. Hammond that platelet count is 44.
[2020-05-11 18:46] LABS: MANUAL DIFFERENTIAL MANUAL DIFFERENTIAL (MANUAL DIFF)
[2020-05-11 18:51] LABS: Fibrinogen 74 mg/dL (204-500)
[2020-05-11 19:01] LABS: Chloride 118 mmol/L (98-107); Sodium 143 mmol/L (136-145)
[2020-05-11 19:04] LABS: Alanine Aminotransferase 82 U/L (12-78); Albumin Level 1.6 g/dl (3.5-5.0); Albumin/Globulin Ratio 0.7 (1.1-1.8); Alkaline Phosphatase 155 U/L (38-126); Aspartate Amino Transferase 232 U/L (17-59); Bilirubin,Total 0.7 mg/dl (0.2-1.3); Carbon Dioxide 17 mmol/L (22.0-30.0); Creatinine Clearance Estimated 27 mL/min (50-200); Estimated Glomerular Filt Rate 30 ml/min (>60); GFR (African American) 36 ML/MIN (>60); Globulin 2.2 g/dL (1.3-3.2); Total Protein,Serum 3.8 g/dl (6.3-8.2)
[2020-05-11 19:05] LABS: Glucose 264 mg/dl (74-100)
[2020-05-11 19:10] LABS: Blood Urea Nitrogen 77 mg/dl (9-20)
--- NOTE | 2020-05-11 19:17 | PC.NURSE ---
notified Dr. Hammond that BUN is 77
[2020-05-11 19:48] LABS: Calcium 7.6 mg/dl (8.4-10.2)
[2020-05-11 20:21] LABS: Corrected White Blood Count 30.6 K/mm3 (4.8-10.8); Lymphocytes % 5 % (10-50); Monocytes % 3 % (2-9); Neutrophils % 92 % (42-76); Nucleated Red Blood Cells 5; Platelet Estimate Marked Decrease; RBC Morphology Normal; Total Cells Counted 100
[2020-05-11 21:01] LABS: Hemoglobin 8.5 g/dL (14.1-18.0)
[2020-05-11 21:33] LABS: Basophils # 0.1 K/mm3 (0-0.2); Basophils % 0.3 % (0.1-2.0); Hematocrit 25.2 % (42.0-52.0); Lymphocytes # 1.2 K/mm3 (0.7-4.5); Lymphocytes % 3.5 % (10-50); Mean Corpuscular HGB Conc 30.8 g/dL (31.8-35.4); Mean Corpuscular Hemoglobin 27.6 pg (27.0-31.2); Mean Corpuscular Volume 89.9 fl (80-94); Mean Platelet Volume 9.8 fl (7.4-10.4); Monocytes # 1.1 K/mm3 (0.1-1.0); Neutrophils # 32.4 K/mm3 (1.8-7.8); Neutrophils % 93.1 % (37.0-80.0); Platelet Count 104 K/mm3 (142-424); White Blood Count 34.8 K/mm3 (4.8-10.8)
[2020-05-11 21:35] LABS: Hemoglobin 7.7 g/dL (14.1-18.0); Red Cell Distribution Width 25.1 % (11.5-17.5)
[2020-05-12] VITALS (52 sets, daily range): BP systolic 87–126; BP diastolic 38–98; PULSE 69–95; RESP 15–37; TEMP 36.3–37.3; O2SAT 92–995; BMI 22.8
--- NOTE | 2020-05-12 02:54 | PC.NURSE ---
He received 1 unit of PRBCs and a unit of FFP this shift. He continues to bleed at ART line site and at chest tube site. Additional DSG placed over chest tube site and tracelet is in place on his left wrist. Start time on PRBC was 0020 and ended at 0215. Gag reflex is present. Blood noted in OG tubing. Small amount blood tinged secretions suctioned from mouth. No urine output thus far this shift except a small amount of yellow, clear urine in his catheter tubing. He is afebrile. Had to have on a chrissie paw at the beginning of the shift.
--- NOTE | 2020-05-12 05:00 | XR_ITS ---
PROCEDURE: XR CHEST PORTABLE CLINICAL HISTORY: Pt intubated. Respiratory failure, intubation, follow-up pneumothorax COMPARISON: CT CT ANGIO CHEST from 05/09/2020 CR XR CHEST PORTABLE from 05/11/2020 CR XR CHEST PORTABLE from 05/11/2020 CR XR CHEST PORTABLE from 05/11/2020 FINDINGS: 5:05 a.m.. Right chest tube remains in place. There is a small right apical pneumothorax slightly smaller compared to the previous study with an apical pleural distance of 8 mm. There are 2 right subclavian central lines. The tip of 1 of these catheters is in the region the right atrium while the other is in the region of the distal SVC. Subcutaneous air is noted along the right lateral hemithorax. Bipolar pacemaker is present from left subclavian approach. Orogastric tube and endotracheal tube are in good position. There is diffuse bilateral pneumonia. This is worse in the right lower lobe from the previous exam. Right upper left upper and left lower lobe pneumonia not significantly changed. IMPRESSION: Tubes and lines present as described above. Small residual right apical pneumothorax. One of the right central venous line tips lies in the region of the right atrium. Diffuse bilateral pneumonia which is somewhat worse in the right lower lobe. Dictated by: Jaun Kumar MD 05/12/2020 05:40 Jaun Kumar MD in [place] 05/12/2020 05:40
[2020-05-12 07:05] LABS: ABG Base Excess -8.2 mmol/L (-2.4-2.3); ABG HCO3 17.4 mmhg (22.0-26.0); ABG Oxygen Saturation 97 % (90-100); ABG PCO2 32.1 mmhg (35.0-45.0); ABG PH 7.35 mmol/L (7.35-7.45); ABG PO2 113.4 mmhg (80-100); ABG TCO2 18.3 mmhg (23-27)
[2020-05-12 07:06] LABS: Mean Platelet Volume 7.9 fl (7.4-10.4); Red Cell Distribution Width 23.2 % (11.5-17.5)
[2020-05-12 07:08] LABS: Oxygen 70 %
[2020-05-12 07:09] LABS: PEEP 10; Source AL; Tidal Volume 460; Vent Rate 26
[2020-05-12 07:16] LABS: Alanine Aminotransferase 124 U/L (12-78); Albumin Level 1.7 g/dl (3.5-5.0); Albumin/Globulin Ratio 0.8 (1.1-1.8); Alkaline Phosphatase 125 U/L (38-126); Anion Gap 9.2 mEq/L (5-15); Aspartate Amino Transferase 299 U/L (17-59); Bilirubin,Total 0.7 mg/dl (0.2-1.3); Carbon Dioxide 22 mmol/L (22.0-30.0); Chloride 111 mmol/L (98-107); Creatinine Clearance Estimated 24 mL/min (50-200); Estimated Glomerular Filt Rate 23 ml/min (>60); GFR (African American) 27 ML/MIN (>60); Globulin 2.2 g/dL (1.3-3.2); Glucose 284 mg/dl (74-100); Potassium 4.2 mmoL/L (3.5-5.1); Sodium 138 mmol/L (136-145); Total Protein,Serum 3.9 g/dl (6.3-8.2)
[2020-05-12 07:17] LABS: Basophils # 0.2 K/mm3 (0-0.2); Basophils % 0.6 % (0.1-2.0); Hematocrit 28.7 % (42.0-52.0); Lymphocytes # 0.7 K/mm3 (0.7-4.5); Lymphocytes % 2.3 % (10-50); Magnesium 1.9 mg/dl (1.6-2.3); Mean Corpuscular HGB Conc 31.3 g/dL (31.8-35.4); Mean Corpuscular Hemoglobin 27.6 pg (27.0-31.2); Mean Corpuscular Volume 88.3 fl (80-94); Monocytes # 1.5 K/mm3 (0.1-1.0); Monocytes % 4.5 % (1.7-9.3); Neutrophils # 29.6 K/mm3 (1.8-7.8); Neutrophils % 92.5 % (37.0-80.0); Platelet Count 55 K/mm3 (142-424); Red Blood Count 3.26 M/mm3 (4.60-6.20)
[2020-05-12 07:26] LABS: Blood Urea Nitrogen 86 mg/dl (9-20); MANUAL DIFFERENTIAL MANUAL DIFFERENTIAL (MANUAL DIFF)
--- NOTE | 2020-05-12 07:27 | PC.NURSE ---
notified Dr. Hammond of the following: BUN 86 and Ca 7.0.
--- NOTE | 2020-05-12 08:06 | HMH.ACPN2 ---
Internal Medicine - PN: Subj *Date: 05/12/20 *Time: 08:06 Interval history: Patient remains intubated, sedated, on pressors, on bicarb drip. Overall condition remains tenuous, and most likely terminal. Exam Vital signs and Labs for Last 24 Hours: Temp Pulse Resp BP Pulse Ox 97.5 F L 89 15 118/67 100 05/12/20 07:28 05/12/20 07:36 05/12/20 07:28 05/12/20 07:28 05/12/20 07:28 Laboratory Results - last 24 hr 05/10/20 09:13: Blood Type A Positive, Antibody Screen Negative, Crossmatch (AHG) See Detail 05/11/20 06:00: WBC 28.9 H* D, RBC 3.84 L D, Hgb 10.4 L D, Hct 33.9 L, MCV 88.1, MCH 27.1, MCHC 30.8 L, RDW 23.5 H, Plt Count 48 L* D, MPV 7.6, Neut % (Auto) 93.4 H, Lymph % (Auto) 2.9 L, [place] % (Auto) 3.4, Eos % (Auto) 0.0 L, Baso % (Auto) 0.3, Neut # (Auto) 26.9 H, Lymph # (Auto) 0.8, [place] # (Auto) 1.0, Eos # (Auto) 0.0, Baso # (Auto) 0.1, Total Counted 100, Neutrophils % (Manual) 91 H, Lymphocytes % (Manual) 6 L, Monocytes % (Manual) 3, Platelet Estimate Marked decrease, Hypochromasia 1+, Anisocytosis 1+, Microcytosis 1+ 05/11/20 09:00: Urine Color Yellow, Urine Appearance Clear, Urine pH 5.5, Ur Specific [place] >= 1.030, Urine Protein 1+, Urine Glucose (UA) Negative, Urine Ketones Negative, Urine Blood 3+, Urine Nitrate Negative, Urine Bilirubin Negative, Urine Urobilinogen 0.2, Ur Leukocyte Esterase Negative, Urine RBC 50-100, Urine WBC 5-10, Ur Squamous Epith Cells Occasional, Amorphous Sediment 1+, Urine Bacteria 2+, Coarse Granular Casts Occasional 05/11/20 09:25: WBC 35.2 H*, RBC 3.77 L, Hgb 10.5 L, Hct 34.0 L, MCV 90.2, MCH 27.8, MCHC 30.8 L, RDW 23.6 H, Plt Count 45 L*, MPV 7.6, Neut % (Auto) 93.3 H, Lymph % (Auto) 3.4 L, [place] % (Auto) 2.9, Eos % (Auto) 0.0 L, Baso % (Auto) 0.4, Neut # (Auto) 32.8 H, Lymph # (Auto) 1.2, [place] # (Auto) 1.0, Eos # (Auto) 0.0, Baso # (Auto) 0.2 05/11/20 09:43: Specimen Source R femoral, O2 % 70, ABG pH 7.09 L*, ABG pCO2 38.7, ABG pO2 94.2, ABG HCO3 11.5 L, ABG Total CO2 12.6 L, ABG O2 Saturation 94, ABG Base Excess -18.4 L, ABG Lactate 5.6 H, Vent Rate 22, Tidal Volume 440, PEEP 10 05/11/20 11:10: Lactate 3.9 H 05/11/20 14:40: Lactate 3.7 H 05/11/20 17:05: Specimen Source Al, O2 % 70, ABG pH 7.06 L*, ABG pCO2 46.3 H, ABG pO2 84.8, ABG HCO3 12.8 L, ABG Total CO2 14.3 L, ABG O2 Saturation 92, ABG Base Excess -17.4 L, Vent Rate 22, Tidal Volume 440, PEEP 10 05/11/20 18:10: WBC 32.1 H*, Corrected WBC 30.6 H*, RBC 3.09 L, Hgb 8.5 L D, Hct 27.8 L, MCV 90.1, MCH 27.4, MCHC 30.4 L, RDW 24.4 H, Plt Count 44 L*, MPV 7.4, Neut % (Auto) 93.1 H, Lymph % (Auto) 2.9 L, [place] % (Auto) 3.7, Eos % (Auto) 0.0 L, Baso % (Auto) 0.2, Neut # (Auto) 29.9 H, Lymph # (Auto) 0.9, [place] # (Auto) 1.2 H, Eos # (Auto) 0.0, Baso # (Auto) 0.1, Total Counted 100, Neutrophils % (Manual) 92 H, Lymphocytes % (Manual) 5 L, Monocytes % (Manual) 3, Nucleated RBCs 5, Platelet Estimate Marked decrease, RBC Morphology Normal 05/11/20 18:10: Sodium 143, Potassium 5.0, Chloride 118 H, Carbon Dioxide 17 L D, Anion Gap 13.0, BUN 77 H D, Creatinine 2.20 H D, Estimated Creat Clear 27, Estimated GFR 30 L, Est GFR ( Amer) 36 L D, Glucose 264 H D, Calcium 7.6 L D, Total Bilirubin 0.7, AST 232 H D, ALT 82 H D, Alkaline Phosphatase 155 H, Total Protein 3.8 L, Albumin 1.6 L D, Globulin 2.2, Albumin/Globulin Ratio 0.7 L 05/11/20 18:10: Fibrinogen 74 L 05/11/20 21:15: WBC 34.8 H*, RBC 2.80 L, Hgb 7.7 L*, Hct 25.2 L, MCV 89.9, MCH 27.6, MCHC 30.8 L, RDW 25.1 H*, Plt Count 104 L D, MPV 9.8, Neut % (Auto) 93.1 H, Lymph % (Auto) 3.5 L, [place] % (Auto) 3.0, Eos % (Auto) 0.0 L, Baso % (Auto) 0.3, Neut # (Auto) 32.4 H, Lymph # (Auto) 1.2, [place] # (Auto) 1.1 H, Eos # (Auto) 0.0, Baso # (Auto) 0.1 05/12/20 06:00: Specimen Source Al, O2 % 70, ABG pH 7.35, ABG pCO2 32.1 L, ABG pO2 113.4 H, ABG HCO3 17.4 L, ABG Total CO2 18.3 L, ABG O2 Saturation 97, ABG Base Excess -8.2 L, Vent Rate 26, Tidal Volume 460, PEEP 10 05/12/20 06:25: WBC 32.0 H*, RBC 3.26 L, Hgb 9.0 L D, Hct 28.7 L, MCV 8
--- NOTE | 2020-05-12 08:37 | HMH.PHACONS ---
- Pharmacy Consult Date: 05/12/20 Time: 08:37 Referring provider: DR. BANUELOS Reason for Consult:: GENTAMICIN DOSING Allergies and ADEs:: Allergies Allergy/AdvReac Type Severity Reaction Status Date / Time No Known Allergies Allergy Verified 05/04/20 13:09 Home Medications:: Home Medications Medication Instructions Recorded Confirmed Type atorvastatin 80 mg tablet 80 mg PO DAILY tab 06/18/17 05/04/20 History aspirin 81 mg tablet,delayed 81 mg PO DAILY 11/01/17 05/04/20 History release tamsulosin 0.4 mg capsule 0.4 mg PO DAILY cap 03/27/19 05/04/20 History Ticagrelor [Brilinta 90mg 90 mg PO BID 11/03/19 05/04/20 History Tablet] temazepam 15 mg capsule 15 mg PO HS cap 02/19/20 05/04/20 History Codeine Phosphate/Guaifenesin 5 ml PO NEEDED PRN 05/04/20 05/04/20 History [Virtussin AC 10-100 mg/5 ml Lq] Folic Acid 1 mg PO DAILY 05/04/20 05/04/20 History Hydrocodone/Acetaminophen 1 tab PO TID 05/04/20 05/05/20 History [Hydrocodone-Acetamin 10-325 mg] Mirtazapine [Remeron] 15 mg PO HS 05/04/20 05/04/20 History Omeprazole [Omeprazole 40mg 40 mg PO DAILY 05/04/20 05/04/20 History Capsule] Sacubitril/Valsartan [Entresto 49 1 tab PO BID 05/04/20 05/05/20 History mg-51 mg Tablet] carvediloL [Carvedilol 12.5mg Tab] 12.5 mg PO BID 05/04/20 05/04/20 History Fluticasone Propionate [Allergy 1 spray NS DAILY 05/05/20 05/05/20 History Relief] Glycopyrrolate/Formoterol Fum 2 puffs IH BID 05/05/20 05/05/20 History [Bevespi Aerosphere Inhaler] Height: 1.75 m Weight: 70.023 kg Laboratory Results:: Laboratory Results - last 24 hr 05/10/20 09:13: Blood Type A Positive, Antibody Screen Negative, Crossmatch (AHG) See Detail 05/11/20 06:00: WBC 28.9 H* D, RBC 3.84 L D, Hgb 10.4 L D, Hct 33.9 L, MCV 88.1, MCH 27.1, MCHC 30.8 L, RDW 23.5 H, Plt Count 48 L* D, MPV 7.6, Neut % (Auto) 93.4 H, Lymph % (Auto) 2.9 L, [place] % (Auto) 3.4, Eos % (Auto) 0.0 L, Baso % (Auto) 0.3, Neut # (Auto) 26.9 H, Lymph # (Auto) 0.8, [place] # (Auto) 1.0, Eos # (Auto) 0.0, Baso # (Auto) 0.1, Total Counted 100, Neutrophils % (Manual) 91 H, Lymphocytes % (Manual) 6 L, Monocytes % (Manual) 3, Platelet Estimate Marked decrease, Hypochromasia 1+, Anisocytosis 1+, Microcytosis 1+ 05/11/20 09:00: Urine Color Yellow, Urine Appearance Clear, Urine pH 5.5, Ur Specific [place] >= 1.030, Urine Protein 1+, Urine Glucose (UA) Negative, Urine Ketones Negative, Urine Blood 3+, Urine Nitrate Negative, Urine Bilirubin Negative, Urine Urobilinogen 0.2, Ur Leukocyte Esterase Negative, Urine RBC 50-100, Urine WBC 5-10, Ur Squamous Epith Cells Occasional, Amorphous Sediment 1+, Urine Bacteria 2+, Coarse Granular Casts Occasional 05/11/20 09:25: WBC 35.2 H*, RBC 3.77 L, Hgb 10.5 L, Hct 34.0 L, MCV 90.2, MCH 27.8, MCHC 30.8 L, RDW 23.6 H, Plt Count 45 L*, MPV 7.6, Neut % (Auto) 93.3 H, Lymph % (Auto) 3.4 L, [place] % (Auto) 2.9, Eos % (Auto) 0.0 L, Baso % (Auto) 0.4, Neut # (Auto) 32.8 H, Lymph # (Auto) 1.2, [place] # (Auto) 1.0, Eos # (Auto) 0.0, Baso # (Auto) 0.2 05/11/20 09:43: Specimen Source R femoral, O2 % 70, ABG pH 7.09 L*, ABG pCO2 38.7, ABG pO2 94.2, ABG HCO3 11.5 L, ABG Total CO2 12.6 L, ABG O2 Saturation 94, ABG Base Excess -18.4 L, ABG Lactate 5.6 H, Vent Rate 22, Tidal Volume 440, PEEP 10 05/11/20 11:10: Lactate 3.9 H 05/11/20 14:40: Lactate 3.7 H 05/11/20 17:05: Specimen Source Al, O2 % 70, ABG pH 7.06 L*, ABG pCO2 46.3 H, ABG pO2 84.8, ABG HCO3 12.8 L, ABG Total CO2 14.3 L, ABG O2 Saturation 92, ABG Base Excess -17.4 L, Vent Rate 22, Tidal Volume 440, PEEP 10 05/11/20 18:10: WBC 32.1 H*, Corrected WBC 30.6 H*, RBC 3.09 L, Hgb 8.5 L D, Hct 27.8 L, MCV 90.1, MCH 27.4, MCHC 30.4 L, RDW 24.4 H, Plt Count 44 L*, MPV 7.4, Neut % (Auto) 93.1 H, Lymph % (Auto) 2.9 L, [place] % (Auto) 3.7, Eos % (Auto) 0.0 L, Baso % (Auto) 0.2, Neut # (Auto) 29.9 H, Lymph # (Auto) 0.9, [place] # (Auto) 1.2 H, Eos # (Auto) 0.0, Baso # (Auto) 0.1, Total Counted 100, Neutrophils % (Manual) 92 H, Lymp
--- NOTE | 2020-05-12 09:10 | HMH.PNCARD ---
Subjective Date: 05/12/20 Time: 09:00 Principal diagnosis: Resp Failure, V. tach Interval history: 69-year-old male remains in the ICU under Covid provisions and protocol. Patient is noted to be in DIC. Patient has history of pneumonia and is currently intubated at this time. Cardiology was consulted due to patient having episodes of V. tach and AICD firing which is suspicious of worsening ischemic CMP. Echo revealed EF 30% with multiple segmental wall motion abnormality. Prognosis for this patient is extremely poor. Patient is currently bleeding from the arterial site. Patient is currently being maxed on pressures. Patient is on Levophed and Mehrdad. Patient does have stage IV lung cancer. Patient does have history of atrial fibrillation with a [id number] score of 4. Amiodarone loading dose IV had completed and patient was switched to amiodarone 400 mg twice daily. shelter monitor reveals heart rate sinus rhythm 71 bpm with bundle branch block. Blood pressure is stable at this time due to patient being on Levophed. Entresto and carvedilol are currently being held at this time due to being on Levophed. Echo:Conclusion 1. Mildly dilated left ventricle, severe reduced left ventricular systolic function, visually estimated ejection fraction 30% with multiple segmental wall motion abnormality described above, diastolic parameters are inconclusive. 2. Mild mitral and trace tricuspid regurgitation. 3. No significant pericardial effusion noted. Continue supportive care. Continue to monitor patient's heart rate and rhythm. Please notify cardiology of any changes in patient status. Thank you for allowing cardiology to participate in the care of this patient. Exam Vital signs and Labs for Last 24 Hours: Temp Pulse Resp BP Pulse Ox 97.4 F L 71 15 104/67 L 100 05/12/20 09:00 05/12/20 09:00 05/12/20 09:00 05/12/20 09:00 05/12/20 09:00 Laboratory Results - last 24 hr 05/10/20 09:13: Blood Type A Positive, Antibody Screen Negative, Crossmatch (AHG) See Detail 05/11/20 06:00: WBC 28.9 H* D, RBC 3.84 L D, Hgb 10.4 L D, Hct 33.9 L, MCV 88.1, MCH 27.1, MCHC 30.8 L, RDW 23.5 H, Plt Count 48 L* D, MPV 7.6, Neut % (Auto) 93.4 H, Lymph % (Auto) 2.9 L, [place] % (Auto) 3.4, Eos % (Auto) 0.0 L, Baso % (Auto) 0.3, Neut # (Auto) 26.9 H, Lymph # (Auto) 0.8, [place] # (Auto) 1.0, Eos # (Auto) 0.0, Baso # (Auto) 0.1, Total Counted 100, Neutrophils % (Manual) 91 H, Lymphocytes % (Manual) 6 L, Monocytes % (Manual) 3, Platelet Estimate Marked decrease, Hypochromasia 1+, Anisocytosis 1+, Microcytosis 1+ 05/11/20 09:00: Urine Color Yellow, Urine Appearance Clear, Urine pH 5.5, Ur Specific [place] >= 1.030, Urine Protein 1+, Urine Glucose (UA) Negative, Urine Ketones Negative, Urine Blood 3+, Urine Nitrate Negative, Urine Bilirubin Negative, Urine Urobilinogen 0.2, Ur Leukocyte Esterase Negative, Urine RBC 50-100, Urine WBC 5-10, Ur Squamous Epith Cells Occasional, Amorphous Sediment 1+, Urine Bacteria 2+, Coarse Granular Casts Occasional 05/11/20 09:25: WBC 35.2 H*, RBC 3.77 L, Hgb 10.5 L, Hct 34.0 L, MCV 90.2, MCH 27.8, MCHC 30.8 L, RDW 23.6 H, Plt Count 45 L*, MPV 7.6, Neut % (Auto) 93.3 H, Lymph % (Auto) 3.4 L, [place] % (Auto) 2.9, Eos % (Auto) 0.0 L, Baso % (Auto) 0.4, Neut # (Auto) 32.8 H, Lymph # (Auto) 1.2, [place] # (Auto) 1.0, Eos # (Auto) 0.0, Baso # (Auto) 0.2 05/11/20 09:43: Specimen Source R femoral, O2 % 70, ABG pH 7.09 L*, ABG pCO2 38.7, ABG pO2 94.2, ABG HCO3 11.5 L, ABG Total CO2 12.6 L, ABG O2 Saturation 94, ABG Base Excess -18.4 L, ABG Lactate 5.6 H, Vent Rate 22, Tidal Volume 440, PEEP 10 05/11/20 11:10: Lactate 3.9 H 05/11/20 14:40: Lactate 3.7 H 05/11/20 17:05: Specimen Source Al, O2 % 70, ABG pH 7.06 L*, ABG pCO2 46.3 H, ABG pO2 84.8, ABG HCO3 12.8 L, ABG Total CO2 14.3 L, ABG O2 Saturation 92, ABG Base Excess -17.4 L, Vent Rate 22, Tidal Volume 440, PEEP 10 05/11/20 18:10: WBC 32.1 H*, Corrected WBC 30.6 H*, RBC 3.09 L, Hgb 8.5 L
[2020-05-12 09:12] LABS: Anisocytosis 1+; Hypochromasia 1+; Lymphocytes % 25 % (10-50); Microcytosis 1+; Monocytes % 5 % (2-9); Neutrophils % 67 % (42-76); Platelet Estimate Marked Decrease; Total Cells Counted 100
--- NOTE | 2020-05-12 09:12 | HMH.ACPN ---
Internal Medicine - PN: Subj *Date: 05/12/20 *Time: 09:12 Exam Vital signs and Labs for Last 24 Hours: Temp Pulse Resp BP Pulse Ox 97.4 F L 71 15 104/67 L 100 05/12/20 09:00 05/12/20 09:00 05/12/20 09:00 05/12/20 09:00 05/12/20 09:00 Laboratory Results - last 24 hr 05/10/20 09:13: Blood Type A Positive, Antibody Screen Negative, Crossmatch (AHG) See Detail 05/11/20 06:00: WBC 28.9 H* D, RBC 3.84 L D, Hgb 10.4 L D, Hct 33.9 L, MCV 88.1, MCH 27.1, MCHC 30.8 L, RDW 23.5 H, Plt Count 48 L* D, MPV 7.6, Neut % (Auto) 93.4 H, Lymph % (Auto) 2.9 L, [place] % (Auto) 3.4, Eos % (Auto) 0.0 L, Baso % (Auto) 0.3, Neut # (Auto) 26.9 H, Lymph # (Auto) 0.8, [place] # (Auto) 1.0, Eos # (Auto) 0.0, Baso # (Auto) 0.1, Total Counted 100, Neutrophils % (Manual) 91 H, Lymphocytes % (Manual) 6 L, Monocytes % (Manual) 3, Platelet Estimate Marked decrease, Hypochromasia 1+, Anisocytosis 1+, Microcytosis 1+ 05/11/20 09:00: Urine Color Yellow, Urine Appearance Clear, Urine pH 5.5, Ur Specific [place] >= 1.030, Urine Protein 1+, Urine Glucose (UA) Negative, Urine Ketones Negative, Urine Blood 3+, Urine Nitrate Negative, Urine Bilirubin Negative, Urine Urobilinogen 0.2, Ur Leukocyte Esterase Negative, Urine RBC 50-100, Urine WBC 5-10, Ur Squamous Epith Cells Occasional, Amorphous Sediment 1+, Urine Bacteria 2+, Coarse Granular Casts Occasional 05/11/20 09:25: WBC 35.2 H*, RBC 3.77 L, Hgb 10.5 L, Hct 34.0 L, MCV 90.2, MCH 27.8, MCHC 30.8 L, RDW 23.6 H, Plt Count 45 L*, MPV 7.6, Neut % (Auto) 93.3 H, Lymph % (Auto) 3.4 L, [place] % (Auto) 2.9, Eos % (Auto) 0.0 L, Baso % (Auto) 0.4, Neut # (Auto) 32.8 H, Lymph # (Auto) 1.2, [place] # (Auto) 1.0, Eos # (Auto) 0.0, Baso # (Auto) 0.2 05/11/20 09:43: Specimen Source R femoral, O2 % 70, ABG pH 7.09 L*, ABG pCO2 38.7, ABG pO2 94.2, ABG HCO3 11.5 L, ABG Total CO2 12.6 L, ABG O2 Saturation 94, ABG Base Excess -18.4 L, ABG Lactate 5.6 H, Vent Rate 22, Tidal Volume 440, PEEP 10 05/11/20 11:10: Lactate 3.9 H 05/11/20 14:40: Lactate 3.7 H 05/11/20 17:05: Specimen Source Al, O2 % 70, ABG pH 7.06 L*, ABG pCO2 46.3 H, ABG pO2 84.8, ABG HCO3 12.8 L, ABG Total CO2 14.3 L, ABG O2 Saturation 92, ABG Base Excess -17.4 L, Vent Rate 22, Tidal Volume 440, PEEP 10 05/11/20 18:10: WBC 32.1 H*, Corrected WBC 30.6 H*, RBC 3.09 L, Hgb 8.5 L D, Hct 27.8 L, MCV 90.1, MCH 27.4, MCHC 30.4 L, RDW 24.4 H, Plt Count 44 L*, MPV 7.4, Neut % (Auto) 93.1 H, Lymph % (Auto) 2.9 L, [place] % (Auto) 3.7, Eos % (Auto) 0.0 L, Baso % (Auto) 0.2, Neut # (Auto) 29.9 H, Lymph # (Auto) 0.9, [place] # (Auto) 1.2 H, Eos # (Auto) 0.0, Baso # (Auto) 0.1, Total Counted 100, Neutrophils % (Manual) 92 H, Lymphocytes % (Manual) 5 L, Monocytes % (Manual) 3, Nucleated RBCs 5, Platelet Estimate Marked decrease, RBC Morphology Normal 05/11/20 18:10: Sodium 143, Potassium 5.0, Chloride 118 H, Carbon Dioxide 17 L D, Anion Gap 13.0, BUN 77 H D, Creatinine 2.20 H D, Estimated Creat Clear 27, Estimated GFR 30 L, Est GFR ( Amer) 36 L D, Glucose 264 H D, Calcium 7.6 L D, Total Bilirubin 0.7, AST 232 H D, ALT 82 H D, Alkaline Phosphatase 155 H, Total Protein 3.8 L, Albumin 1.6 L D, Globulin 2.2, Albumin/Globulin Ratio 0.7 L 05/11/20 18:10: Fibrinogen 74 L 05/11/20 21:15: WBC 34.8 H*, RBC 2.80 L, Hgb 7.7 L*, Hct 25.2 L, MCV 89.9, MCH 27.6, MCHC 30.8 L, RDW 25.1 H*, Plt Count 104 L D, MPV 9.8, Neut % (Auto) 93.1 H, Lymph % (Auto) 3.5 L, [place] % (Auto) 3.0, Eos % (Auto) 0.0 L, Baso % (Auto) 0.3, Neut # (Auto) 32.4 H, Lymph # (Auto) 1.2, [place] # (Auto) 1.1 H, Eos # (Auto) 0.0, Baso # (Auto) 0.1 05/12/20 06:00: Specimen Source Al, O2 % 70, ABG pH 7.35, ABG pCO2 32.1 L, ABG pO2 113.4 H, ABG HCO3 17.4 L, ABG Total CO2 18.3 L, ABG O2 Saturation 97, ABG Base Excess -8.2 L, Vent Rate 26, Tidal Volume 460, PEEP 10 05/12/20 06:25: WBC 32.0 H*, RBC 3.26 L, Hgb 9.0 L D, Hct 28.7 L, MCV 88.3, MCH 27.6, MCHC 31.3 L, RDW 23.2 H, Plt Count 55 L D, MPV 7.9, Neut % (Auto) 92.5 H, Lymph % (Auto) 2.3 L, [place] % (Auto) 4.5, Eos % (Auto) 0.0 L, B
--- NOTE | 2020-05-12 09:37 | PC.NURSE ---
Dr. Willett @ [facility]. He ordered to decrease Bicarb gtt to 50mL/hr and draw an ABG @ 1340. If ABG is good, then STOP Bicarb gtt. Order faxed to pharmacy. Dr. Willett decreased FiO2 to 50% and decreased rate to 22.
--- NOTE | 2020-05-12 09:58 | HMH.PULMPN ---
Internal Medicine - PN: Subj *Date: 05/12/20 *Time: 09:58 Interval history: No acute events overnight. Patient condition remained critical Assessment and Plan (1) Unstable angina Status: Acute Category: Medical Code(s): I20.0 - Unstable angina (2) ECG abnormality Status: Acute Category: Medical Code(s): R94.31 - Abnormal electrocardiogram [ECG] [EKG] (3) Anemia Status: Acute Category: Medical Code(s): D64.9 - Anemia, unspecified (4) Pneumonia due to COVID-19 virus Status: Acute Category: Medical Code(s): U07.1 - COVID-19; J12.82 - Pneumonia due to coronavirus disease 2019 (5) Lung cancer Status: Chronic Qualifiers: Laterality: right Lung location: lower lobe of lung Qualified Code(s): C34.31 - Malignant neoplasm of lower lobe, right bronchus or lung Category: Medical Code(s): C34.90 - Malignant neoplasm of unspecified part of unspecified bronchus or lung (6) Atypical chest pain Status: Acute Category: Medical Code(s): R07.89 - Other chest pain (7) Ischemic cardiomyopathy with implantable cardioverter-defibrillator (ICD) Status: Acute Category: Medical Code(s): I25.5 - Ischemic cardiomyopathy; Z95.810 - Presence of automatic (implantable) cardiac defibrillator (8) Abdominal aortic aneurysm (AAA) 3.0 cm to 5.5 cm in diameter in male Status: Chronic Category: Medical Code(s): I71.4 - Abdominal aortic aneurysm, without rupture (9) Panlobular emphysema Status: Chronic Category: Medical Code(s): J43.1 - Panlobular emphysema (10) Systolic CHF Status: Chronic Qualifiers: Heart failure chronicity: chronic Qualified Code(s): I50.22 - Chronic systolic (congestive) heart failure Category: Medical Code(s): I50.20 - Unspecified systolic (congestive) heart failure (11) V tach Status: Resolved Category: Medical Code(s): I47.2 - Ventricular tachycardia - Assessment and plan all Dx Assessment and Plan for all problems:: #Acute hypoxic respiratory failure: #Pneumonia in immunocompromised: #Stage IV adenocarcinoma of the lung on chemoimmuno therapy: #COPD: 69-year-old male with significant smoking history, carries a diagnosis of stage IV adenocarcinoma currently receiving standard of care chemotherapy plus investigational PD-L1 immunotherapy at [facility] presented to the hospital with worsening respiratory failure and hypoxia. Patient found to be positive for COVID-19 pneumonia. Patient also noted to have staph hominis and staph epi bacteremia. Plan: Intubated and sedated, will continue propofol and fentanyl for an hour sedation with a RASS goal of 0 to 11 and COPT goal of less than or equal to 2. Patient mentation normal prior to intubation Acute hypoxic respiratory failure needing intubation and mechanical ventilation. CT showed improving lung mass but however showed diffuse bilateral groundglass opacities. PCR positive for COVID-19 from admission. Respiratory viral panel negative. Significant improvement in patient's oxygen requirement status post intubation with improving blood gas. This morning 100% saturations, FiO2 decreased to 50%, with a PEEP of 10 tidal volume of 440 and a rate of 22. Chest tube in place. Tiny residual apical pneumothorax. ET tube in place. Septic shock with pressor requirement currently on phenylephrine and norepinephrine. Worsening leukocytosis and DIC. Patient also significant DIC with thrombocytopenia and decreased fibrinogen. Patient was initiated on vancomycin cefepime and levofloxacin on admission, fluconazole was added and levofloxacin was stopped to add gentamicin for double gram-negative coverage. Patient received platelets yesterday however platelets still declining. We will also need cryoprecipitate STAT given his worsening DIC and continued bleeding. Renal function worsening with worsening BUN/creatinine. Metabolic acidosis improved on bicarb drip. We will decrease the bicarb to
--- NOTE | 2020-05-12 10:48 | HMH.GSPN ---
Subjective Narrative: Chest x-ray revealed chest tube in good position with likely small apical pneumothorax. Currently on FiO2 50% with PEEP of 10. With transiently increasing suction on chest tube to 40 there were a few bubbles of air leak. Progress Note: A&P (1) Unstable angina Status: Acute (2) ECG abnormality Status: Acute (3) Anemia Status: Acute (4) Pneumonia due to COVID-19 virus Status: Acute (5) Lung cancer Status: Chronic (6) Atypical chest pain Status: Acute (7) Ischemic cardiomyopathy with implantable cardioverter-defibrillator (ICD) Status: Acute (8) Abdominal aortic aneurysm (AAA) 3.0 cm to 5.5 cm in diameter in male Status: Chronic (9) Panlobular emphysema Status: Chronic (10) Systolic CHF Status: Chronic (11) V tach Status: Resolved Assessment and Plan for All Diagnoses:: Keep chest tube to suction for now due to tiny residual pneumothorax and possible air leak although this could be merely evacuation of loculated pneumothorax seen with air bubbles by increasing the pressure. Exam Vital signs and Labs for Last 24 Hours: Temp Pulse Resp BP Pulse Ox 97.4 F L 72 32 H 104/67 L 98 05/12/20 09:00 05/12/20 09:47 05/12/20 09:43 05/12/20 09:00 05/12/20 09:43 Laboratory Results - last 24 hr 05/10/20 09:13: Blood Type A Positive, Antibody Screen Negative, Crossmatch (AHG) See Detail 05/11/20 09:00: Urine Color Yellow, Urine Appearance Clear, Urine pH 5.5, Ur Specific [place] >= 1.030, Urine Protein 1+, Urine Glucose (UA) Negative, Urine Ketones Negative, Urine Blood 3+, Urine Nitrate Negative, Urine Bilirubin Negative, Urine Urobilinogen 0.2, Ur Leukocyte Esterase Negative, Urine RBC 50-100, Urine WBC 5-10, Ur Squamous Epith Cells Occasional, Amorphous Sediment 1+, Urine Bacteria 2+, Coarse Granular Casts Occasional 05/11/20 11:10: Lactate 3.9 H 05/11/20 14:40: Lactate 3.7 H 05/11/20 17:05: Specimen Source Al, O2 % 70, ABG pH 7.06 L*, ABG pCO2 46.3 H, ABG pO2 84.8, ABG HCO3 12.8 L, ABG Total CO2 14.3 L, ABG O2 Saturation 92, ABG Base Excess -17.4 L, Vent Rate 22, Tidal Volume 440, PEEP 10 05/11/20 18:10: WBC 32.1 H*, Corrected WBC 30.6 H*, RBC 3.09 L, Hgb 8.5 L D, Hct 27.8 L, MCV 90.1, MCH 27.4, MCHC 30.4 L, RDW 24.4 H, Plt Count 44 L*, MPV 7.4, Neut % (Auto) 93.1 H, Lymph % (Auto) 2.9 L, [place] % (Auto) 3.7, Eos % (Auto) 0.0 L, Baso % (Auto) 0.2, Neut # (Auto) 29.9 H, Lymph # (Auto) 0.9, [place] # (Auto) 1.2 H, Eos # (Auto) 0.0, Baso # (Auto) 0.1, Total Counted 100, Neutrophils % (Manual) 92 H, Lymphocytes % (Manual) 5 L, Monocytes % (Manual) 3, Nucleated RBCs 5, Platelet Estimate Marked decrease, RBC Morphology Normal 05/11/20 18:10: Sodium 143, Potassium 5.0, Chloride 118 H, Carbon Dioxide 17 L D, Anion Gap 13.0, BUN 77 H D, Creatinine 2.20 H D, Estimated Creat Clear 27, Estimated GFR 30 L, Est GFR ( Amer) 36 L D, Glucose 264 H D, Calcium 7.6 L D, Total Bilirubin 0.7, AST 232 H D, ALT 82 H D, Alkaline Phosphatase 155 H, Total Protein 3.8 L, Albumin 1.6 L D, Globulin 2.2, Albumin/Globulin Ratio 0.7 L 05/11/20 18:10: Fibrinogen 74 L 05/11/20 21:15: WBC 34.8 H*, RBC 2.80 L, Hgb 7.7 L*, Hct 25.2 L, MCV 89.9, MCH 27.6, MCHC 30.8 L, RDW 25.1 H*, Plt Count 104 L D, MPV 9.8, Neut % (Auto) 93.1 H, Lymph % (Auto) 3.5 L, [place] % (Auto) 3.0, Eos % (Auto) 0.0 L, Baso % (Auto) 0.3, Neut # (Auto) 32.4 H, Lymph # (Auto) 1.2, [place] # (Auto) 1.1 H, Eos # (Auto) 0.0, Baso # (Auto) 0.1 05/12/20 06:00: Specimen Source Al, O2 % 70, ABG pH 7.35, ABG pCO2 32.1 L, ABG pO2 113.4 H, ABG HCO3 17.4 L, ABG Total CO2 18.3 L, ABG O2 Saturation 97, ABG Base Excess -8.2 L, Vent Rate 26, Tidal Volume 460, PEEP 10 05/12/20 06:25: WBC 32.0 H*, RBC 3.26 L, Hgb 9.0 L D, Hct 28.7 L, MCV 88.3, MCH 27.6, MCHC 31.3 L, RDW 23.2 H, Plt Count 55 L D, MPV 7.9, Neut % (Auto) 92.5 H, Lymph % (Auto) 2.3 L, [place] % (Auto) 4.5, Eos % (Auto) 0.0 L, Baso % (Auto) 0.6, Neut # (Auto) 29.6 H, Lymph # (Auto) 0.7, [place] # (Auto) 1.5
--- NOTE | 2020-05-12 11:54 | PC.NURSE ---
SO @ BS and reports that family is agreeable to transfer to [facility] in [place] Updated hospitality housekeeper, Dr. Jorge, and Dr. Willett.
--- NOTE | 2020-05-12 12:36 | PC.NURSE ---
BP 124/62. Mehrdad gtt decreased to 50mcg/min.
[2020-05-12 13:56] LABS: ABG Base Excess -7.6 mmol/L (-2.4-2.3); ABG HCO3 18.4 mmhg (22.0-26.0); ABG Oxygen Saturation 96 % (90-100); ABG PCO2 36.4 mmhg (35.0-45.0); ABG PH 7.32 mmol/L (7.35-7.45); ABG PO2 95.9 mmhg (80-100); ABG TCO2 19.5 mmhg (23-27)
[2020-05-12 13:57] LABS: Oxygen 65 %
[2020-05-12 13:58] LABS: PEEP 10; Source ART LINE; Tidal Volume 460; Vent Rate 22
--- NOTE | 2020-05-12 14:00 | PC.NURSE ---
Cryo infusion started. See TAR for vitals.
--- NOTE | 2020-05-12 14:40 | PC.NURSE ---
BP 118/55 (76). Mehrdad gtt decreased to 40mcg/min.
--- NOTE | 2020-05-12 15:10 | PC.NURSE ---
BP 119/54. Mehrdad gtt decreased to 30mcg/min. Cryo infusion is complete.
[2020-05-12 15:31] LABS: Vancomycin,Trough 29.7 ug/mL (5.0-10.0)
--- NOTE | 2020-05-12 15:40 | HMH.PHACONS ---
- Pharmacy Consult Date: 05/12/20 Time: 15:40 Referring provider: DR. ISBELL Reason for Consult:: VANCOMYCIN TROUGH LEVEL Allergies and ADEs:: Allergies Allergy/AdvReac Type Severity Reaction Status Date / Time No Known Allergies Allergy Verified 05/04/20 13:09 Home Medications:: Home Medications Medication Instructions Recorded Confirmed Type atorvastatin 80 mg tablet 80 mg PO DAILY tab 06/18/17 05/04/20 History aspirin 81 mg tablet,delayed 81 mg PO DAILY 11/01/17 05/04/20 History release tamsulosin 0.4 mg capsule 0.4 mg PO DAILY cap 03/27/19 05/04/20 History Ticagrelor [Brilinta 90mg 90 mg PO BID 11/03/19 05/04/20 History Tablet] temazepam 15 mg capsule 15 mg PO HS cap 02/19/20 05/04/20 History Codeine Phosphate/Guaifenesin 5 ml PO NEEDED PRN 05/04/20 05/04/20 History [Virtussin AC 10-100 mg/5 ml Lq] Folic Acid 1 mg PO DAILY 05/04/20 05/04/20 History Hydrocodone/Acetaminophen 1 tab PO TID 05/04/20 05/05/20 History [Hydrocodone-Acetamin 10-325 mg] Mirtazapine [Remeron] 15 mg PO HS 05/04/20 05/04/20 History Omeprazole [Omeprazole 40mg 40 mg PO DAILY 05/04/20 05/04/20 History Capsule] Sacubitril/Valsartan [Entresto 49 1 tab PO BID 05/04/20 05/05/20 History mg-51 mg Tablet] carvediloL [Carvedilol 12.5mg Tab] 12.5 mg PO BID 05/04/20 05/04/20 History Fluticasone Propionate [Allergy 1 spray NS DAILY 05/05/20 05/05/20 History Relief] Glycopyrrolate/Formoterol Fum 2 puffs IH BID 05/05/20 05/05/20 History [Bevespi Aerosphere Inhaler] Height: 1.75 m Weight: 70.023 kg Laboratory Results:: Laboratory Results - last 24 hr 05/10/20 09:13: Blood Type A Positive, Antibody Screen Negative, Crossmatch (AHG) See Detail 05/11/20 17:05: Specimen Source Al, O2 % 70, ABG pH 7.06 L*, ABG pCO2 46.3 H, ABG pO2 84.8, ABG HCO3 12.8 L, ABG Total CO2 14.3 L, ABG O2 Saturation 92, ABG Base Excess -17.4 L, Vent Rate 22, Tidal Volume 440, PEEP 10 05/11/20 18:10: WBC 32.1 H*, Corrected WBC 30.6 H*, RBC 3.09 L, Hgb 8.5 L D, Hct 27.8 L, MCV 90.1, MCH 27.4, MCHC 30.4 L, RDW 24.4 H, Plt Count 44 L*, MPV 7.4, Neut % (Auto) 93.1 H, Lymph % (Auto) 2.9 L, [place] % (Auto) 3.7, Eos % (Auto) 0.0 L, Baso % (Auto) 0.2, Neut # (Auto) 29.9 H, Lymph # (Auto) 0.9, [place] # (Auto) 1.2 H, Eos # (Auto) 0.0, Baso # (Auto) 0.1, Total Counted 100, Neutrophils % (Manual) 92 H, Lymphocytes % (Manual) 5 L, Monocytes % (Manual) 3, Nucleated RBCs 5, Platelet Estimate Marked decrease, RBC Morphology Normal 05/11/20 18:10: Sodium 143, Potassium 5.0, Chloride 118 H, Carbon Dioxide 17 L D, Anion Gap 13.0, BUN 77 H D, Creatinine 2.20 H D, Estimated Creat Clear 27, Estimated GFR 30 L, Est GFR ( Amer) 36 L D, Glucose 264 H D, Calcium 7.6 L D, Total Bilirubin 0.7, AST 232 H D, ALT 82 H D, Alkaline Phosphatase 155 H, Total Protein 3.8 L, Albumin 1.6 L D, Globulin 2.2, Albumin/Globulin Ratio 0.7 L 05/11/20 18:10: Fibrinogen 74 L 05/11/20 21:15: WBC 34.8 H*, RBC 2.80 L, Hgb 7.7 L*, Hct 25.2 L, MCV 89.9, MCH 27.6, MCHC 30.8 L, RDW 25.1 H*, Plt Count 104 L D, MPV 9.8, Neut % (Auto) 93.1 H, Lymph % (Auto) 3.5 L, [place] % (Auto) 3.0, Eos % (Auto) 0.0 L, Baso % (Auto) 0.3, Neut # (Auto) 32.4 H, Lymph # (Auto) 1.2, [place] # (Auto) 1.1 H, Eos # (Auto) 0.0, Baso # (Auto) 0.1 05/12/20 06:00: Specimen Source Al, O2 % 70, ABG pH 7.35, ABG pCO2 32.1 L, ABG pO2 113.4 H, ABG HCO3 17.4 L, ABG Total CO2 18.3 L, ABG O2 Saturation 97, ABG Base Excess -8.2 L, Vent Rate 26, Tidal Volume 460, PEEP 10 05/12/20 06:25: WBC 32.0 H*, RBC 3.26 L, Hgb 9.0 L D, Hct 28.7 L, MCV 88.3, MCH 27.6, MCHC 31.3 L, RDW 23.2 H, Plt Count 55 L D, MPV 7.9, Neut % (Auto) 92.5 H, Lymph % (Auto) 2.3 L, [place] % (Auto) 4.5, Eos % (Auto) 0.0 L, Baso % (Auto) 0.6, Neut # (Auto) 29.6 H, Lymph # (Auto) 0.7, [place] # (Auto) 1.5 H, Eos # (Auto) 0.0, Baso # (Auto) 0.2, Total Counted 100, Neutrophils % (Manual) 67, Band Neutrophils % 3.0, Lymphocytes % (Manual) 25, Monocytes % (Manual) 5, Platelet Estimate Marked decrease,
--- NOTE | 2020-05-12 16:56 | PC.NURSE ---
Bicarb gtt stopped per Dr. Willett.
[2020-05-12 19:18] LABS: Gentamicin,Trough 4.8 ug/ml (0.0-2.0)
[2020-05-13] VITALS (28 sets, daily range): BP systolic 96–113; BP diastolic 44–61; PULSE 70–89; RESP 19–31; TEMP 36.8–37.3; O2SAT 93–100; BMI 23.1
--- NOTE | 2020-05-13 01:12 | PC.NURSE ---
2100 patient, coughing. breathing 32 times a minute, when turned patient o2 sats dropped to 82% patient coughed with such force that continuously pops the ett off of ventilator circuit. propofol increased to 30 mcq. small air leak present in chest tube with fluctuation at 20 cm suction. no crepitus noted.
--- NOTE | 2020-05-13 01:16 | PC.NURSE ---
attempted to wean tracy drip off map sustained 60-63, returned tracy drip back to 20 mcq.
--- NOTE | 2020-05-13 01:57 | PC.NURSE ---
patient tolerating slight turns at this time with coughing episode, blood pressure does drop slightly but returns to previous readings
--- NOTE | 2020-05-13 04:57 | XR_ITS ---
PROCEDURE: XR CHEST PORTABLE CLINICAL HISTORY: chest tube eval resp failure COMPARISON: CT CT ANGIO CHEST from 05/09/2020 CR XR CHEST PORTABLE from 05/11/2020 CR XR CHEST PORTABLE from 05/11/2020 CR XR CHEST PORTABLE from 05/12/2020 FINDINGS: 5:52 a.m.. Endotracheal tube orogastric tube bipolar pacemaker and 2 right subclavian central lines are in place. One of the central lines is at the aortocaval junction while the others in the distal SVC region. Right chest tube remains in place. Tiny residual right apical and basilar pneumothorax is present with subcutaneous air noted along the right lateral hemithorax. Bilateral pneumonia once again noted which appears slightly improved in a background of COPD. IMPRESSION: Tubes and lines present as described above with tiny residual right apical and basilar pneumothorax. Bilateral pneumonia which may be slightly improved Dictated by: Jaun Kumar MD 05/13/2020 06:22 Jaun Kumar MD in [place] 05/13/2020 06:22
--- NOTE | 2020-05-13 06:20 | PC.NURSE ---
shift summary patient had coughing episode with am cxr, sats dropped to 87%, quickly recovered after completed. bloody gastric content from ogt approximately 100 ml. beginning of shift copious amounts of bloody secretions from oral cavity, decreased to scant amount of bloody secretions this am. left radial artline bleedy moderate amount, tracelet in place, this am artline oozing minimal amount, tracelet remains in place. pulses + 1, fingertips warm. r lateral chest tube remains small airleak at 20 cm suction, no crepitus mnoted. tracy at 20 mcq, levo at 30 mcq, propofol at 30 mcq and fentanyl at 25 mcq. only 6 ml of urine this shift per parra.
[2020-05-13 06:45] LABS: Alanine Aminotransferase 108 U/L (12-78); Albumin Level 1.7 g/dl (3.5-5.0); Albumin/Globulin Ratio 0.7 (1.1-1.8); Alkaline Phosphatase 106 U/L (38-126); Anion Gap 13.4 mEq/L (5-15); Aspartate Amino Transferase 143 U/L (17-59); Bilirubin,Total 0.7 mg/dl (0.2-1.3); Carbon Dioxide 18 mmol/L (22.0-30.0); Chloride 109 mmol/L (98-107); Creatinine Clearance Estimated 17 mL/min (50-200); Estimated Glomerular Filt Rate 14 ml/min (>60); GFR (African American) 18 ML/MIN (>60); Globulin 2.5 g/dL (1.3-3.2); Glucose 201 mg/dl (74-100); Potassium 4.4 mmoL/L (3.5-5.1); Sodium 136 mmol/L (136-145); Total Protein,Serum 4.2 g/dl (6.3-8.2)
[2020-05-13 07:23] LABS: Blood Urea Nitrogen 104 mg/dl (9-20)
[2020-05-13 07:27] LABS: ABG Base Excess -9.7 mmol/L (-2.4-2.3); ABG HCO3 16.9 mmhg (22.0-26.0); ABG Oxygen Saturation 92 % (90-100); ABG PCO2 35.8 mmhg (35.0-45.0); ABG PH 7.29 mmol/L (7.35-7.45)
[2020-05-13 07:33] LABS: Oxygen 50 %; Tidal Volume 460; Vent Rate 22
[2020-05-13 07:34] LABS: PEEP 10
[2020-05-13 08:09] LABS: Basophils # 0.1 K/mm3 (0-0.2); Basophils % 0.2 % (0.1-2.0); Hematocrit 25.7 % (42.0-52.0); Lymphocytes # 0.8 K/mm3 (0.7-4.5); Lymphocytes % 2.5 % (10-50); Mean Corpuscular HGB Conc 30.6 g/dL (31.8-35.4); Mean Corpuscular Hemoglobin 28.4 pg (27.0-31.2); Mean Corpuscular Volume 92.9 fl (80-94); Mean Platelet Volume 8.5 fl (7.4-10.4); Monocytes # 0.9 K/mm3 (0.1-1.0); Monocytes % 2.7 % (1.7-9.3); Neutrophils # 30.7 K/mm3 (1.8-7.8); Neutrophils % 94.5 % (37.0-80.0); Red Blood Count 2.77 M/mm3 (4.60-6.20); White Blood Count 32.5 K/mm3 (4.8-10.8)
[2020-05-13 08:39] LABS: Red Cell Distribution Width 26.6 % (11.5-17.5)
[2020-05-13 08:40] LABS: Hemoglobin 7.9 g/dL (14.1-18.0)
[2020-05-13 08:41] LABS: MANUAL DIFFERENTIAL MANUAL DIFFERENTIAL (MANUAL DIFF); Platelet Count 43 K/mm3 (142-424)
--- NOTE | 2020-05-13 08:53 | HMH.PULMPN ---
Internal Medicine - PN: Subj *Date: 05/13/20 *Time: 12:07 Interval history: No acute respiratory events overnight. Hemodynamics slightly improved. Exam - Constitutional Constitutional:: Present: comfortable - HENMT Exam HENMT: Present: atraumatic - Eye Exam Eyes:: Present: eyelids normal - Neck Exam Neck:: Present: thyroid normal - Respiratory Exam Respiratory:: Present: crackles - Cardiovascular Exam Cardiac:: Present: S1, S2 - GI Exam GI:: Present: soft - Skin Exam Skin: Present: warm, no rash - Neurological Exam Intubated and sedated. Appears comfortable. - Extremities Exam Extremities: Present: no cyanosis, no clubbing, edema Assessment and Plan (1) Unstable angina Status: Acute Category: Medical Code(s): I20.0 - Unstable angina (2) ECG abnormality Status: Acute Category: Medical Code(s): R94.31 - Abnormal electrocardiogram [ECG] [EKG] (3) Anemia Status: Acute Category: Medical Code(s): D64.9 - Anemia, unspecified (4) Pneumonia due to COVID-19 virus Status: Acute Category: Medical Code(s): U07.1 - COVID-19; J12.82 - Pneumonia due to coronavirus disease 2019 (5) Lung cancer Status: Chronic Qualifiers: Laterality: right Lung location: lower lobe of lung Qualified Code(s): C34.31 - Malignant neoplasm of lower lobe, right bronchus or lung Category: Medical Code(s): C34.90 - Malignant neoplasm of unspecified part of unspecified bronchus or lung (6) Atypical chest pain Status: Acute Category: Medical Code(s): R07.89 - Other chest pain (7) Ischemic cardiomyopathy with implantable cardioverter-defibrillator (ICD) Status: Acute Category: Medical Code(s): I25.5 - Ischemic cardiomyopathy; Z95.810 - Presence of automatic (implantable) cardiac defibrillator (8) Abdominal aortic aneurysm (AAA) 3.0 cm to 5.5 cm in diameter in male Status: Chronic Category: Medical Code(s): I71.4 - Abdominal aortic aneurysm, without rupture (9) Panlobular emphysema Status: Chronic Category: Medical Code(s): J43.1 - Panlobular emphysema (10) Systolic CHF Status: Chronic Qualifiers: Heart failure chronicity: chronic Qualified Code(s): I50.22 - Chronic systolic (congestive) heart failure Category: Medical Code(s): I50.20 - Unspecified systolic (congestive) heart failure (11) V tach Status: Resolved Category: Medical Code(s): I47.2 - Ventricular tachycardia - Assessment and plan all Dx Assessment and Plan for all problems:: #Acute hypoxic respiratory failure: #Pneumonia in immunocompromised: #Stage IV adenocarcinoma of the lung on chemoimmuno therapy: #COPD: 69-year-old male with significant smoking history, carries a diagnosis of stage IV adenocarcinoma currently receiving standard of care chemotherapy plus investigational PD-L1 immunotherapy at [facility] presented to the hospital with worsening respiratory failure and hypoxia. Patient found to be positive for COVID-19 pneumonia. Patient also noted to have staph hominis and staph epi bacteremia. Plan: Intubated and sedated, will continue propofol and fentanyl for an hour sedation with a RASS goal of 0 to 11 and COPT goal of less than or equal to 2. Patient mentation normal prior to intubation Acute hypoxic respiratory failure needing intubation and mechanical ventilation. CT showed improving lung mass but however showed diffuse bilateral groundglass opacities. PCR positive for COVID-19 from admission. Respiratory viral panel negative. Patient remains on PEEP and 50% FiO2 however PO2 slightly decreased from yesterday and chest x-ray showed worsening vascular congestion and evidence of volume overload. We will closely monitor the renal function volume status. Continue current vent settings at tidal volume of 460, rate of 22, FiO2 of 50 and PEEP of 10. Repeat blood cultures pending. Septic shock with pressor requirement currently on phenylephrine and n
[2020-05-13 09:15] LABS: Vancomycin,Trough 26.5 ug/mL (5.0-10.0)
[2020-05-13 10:45] LABS: Lymphocytes % 2 % (10-50); Monocytes % 4 % (2-9); Neutrophils % 94 % (42-76); Nucleated Red Blood Cells 3; Platelet Estimate Marked Decrease; RBC Morphology Normal; Total Cells Counted 100
--- NOTE | 2020-05-13 10:46 | HMH.PNCARD ---
Subjective Date: 05/13/20 Time: 10:46 Principal diagnosis: Resp Failure, V. tach Interval history: 69-year-old white male in the ICU sedated, intubated on mechanical ventilation. He continues to require Levophed and mehrdad for blood pressure support. Urine output has been negligible overnight. Creatinine has increased to 4.1. Right-sided chest tube in place. Telemetry shows sinus rhythm with no further episodes of ventricular tachycardia. [address] Jorge is contacting the patient's significant other to discuss CODE STATUS. Exam Vital signs and Labs for Last 24 Hours: Temp Pulse Resp BP Pulse Ox 98.6 F 86 24 96/50 L 97 05/13/20 10:00 05/13/20 10:17 05/13/20 10:17 05/13/20 10:00 05/13/20 10:17 Laboratory Results - last 24 hr 05/10/20 09:13: Blood Type A Positive, Antibody Screen Negative, Crossmatch (AHG) See Detail 05/12/20 13:53: Specimen Source Art line, O2 % 65, ABG pH 7.32 L, ABG pCO2 36.4, ABG pO2 95.9, ABG HCO3 18.4 L, ABG Total CO2 19.5 L, ABG O2 Saturation 96, ABG Base Excess -7.6 L, Vent Rate 22, Tidal Volume 460, PEEP 10 05/12/20 14:02: Vancomycin Trough 29.7 H 05/12/20 17:15: Gentamicin Trough 4.8 H* 05/13/20 05:45: Sodium 136, Potassium 4.4, Chloride 109 H, Carbon Dioxide 18 L, Anion Gap 13.4, BUN 104 H*, Creatinine 4.10 H D, Estimated Creat Clear 17, Estimated GFR 14 L*, Est GFR ( Amer) 18 L* D, Glucose 201 H D, Calcium 7.0 L, Total Bilirubin 0.7, AST 143 H D, ALT 108 H, Alkaline Phosphatase 106, Total Protein 4.2 L, Albumin 1.7 L, Globulin 2.5, Albumin/Globulin Ratio 0.7 L 05/13/20 05:45: WBC 32.5 H*, RBC 2.77 L, Hgb 7.9 L*, Hct 25.7 L, MCV 92.9, MCH 28.4, MCHC 30.6 L, RDW 26.6 H*, Plt Count 43 L*, MPV 8.5, Neut % (Auto) 94.5 H, Lymph % (Auto) 2.5 L, [place] % (Auto) 2.7, Eos % (Auto) 0.0 L, Baso % (Auto) 0.2, Neut # (Auto) 30.7 H, Lymph # (Auto) 0.8, [place] # (Auto) 0.9, Eos # (Auto) 0.0, Baso # (Auto) 0.1, Total Counted 100, Neutrophils % (Manual) 94 H, Lymphocytes % (Manual) 2 L, Monocytes % (Manual) 4, Nucleated RBCs 3, Platelet Estimate Marked decrease, RBC Morphology Normal 05/13/20 06:00: Specimen Source art line, O2 % 50, ABG pH 7.29 L, ABG pCO2 35.8, ABG pO2 73.0 L, ABG HCO3 16.9 L, ABG Total CO2 18.0 L, ABG O2 Saturation 92, ABG Base Excess -9.7 L, Jaun Test winder helper, Vent Rate 22, Tidal Volume 460, PEEP 10 05/13/20 08:35: Vancomycin Trough 26.5 H I & O for Last 24 hours: Intake & Output 05/10/20 05/11/20 05/12/20 05/13/20 11:59 11:59 11:59 11:59 Intake Total 2820 / 2820 388.487 / 397.291 5947.786 / 6766.786 4325.795 / 4325.795 Output Total 1750 / 1750 950 / 955 28 / 32 133 / 133 Balance 1070 / 1070 -561.513 / -925.997 4459.786 / 6734.786 4192.795 / 4192.795 Weight 135 lb 8 oz 132 lb 4 oz 154 lb 6 oz 155 lb 13.869 oz Microbiology Reports for the Last 24 Hours: Microbiology 05/11/20 09:00 Urine,Catheterized Urine Culture - Final NO GROWTH AFTER 48 HOURS 05/11/20 09:00 Rectum CRE Surveillance Culture - Final Negative 05/11/20 09:30 Sputum - Endotracheal Tube Aspirate Gram Stain - Final 05/11/20 09:30 Sputum - Endotracheal Tube Aspirate Sputum Culture - Preliminary Narrative: Patient not examined due to Covid isolation. Progress Note: A&P (1) Pneumonia due to COVID-19 virus Status: Acute (2) Unstable angina Status: Acute (3) ECG abnormality Status: Acute (4) Anemia Status: Acute (5) Lung cancer Status: Chronic (6) Atypical chest pain Status: Acute (7) Ischemic cardiomyopathy with implantable cardioverter-defibrillator (ICD) Status: Acute (8) Abdominal aortic aneurysm (AAA) 3.0 cm to 5.5 cm in diameter in male Status: Chronic (9) Panlobular emphysema Status: Chronic (10) Systolic CHF Status: Chronic (11) V tach Status: Resolved Assessment and Plan for All Diagnoses:: Hypotension, improved with combination of Levophed and Mehrdad-Synephrine drips. Pat
[2020-05-13 13:34] LABS: D-Dimer 3.54 ug/mL (0.0-0.5)
[2020-05-13 13:37] LABS: Fibrinogen 143 mg/dL (204-500)
--- NOTE | 2020-05-13 14:31 | HMH.ACPN2 ---
Internal Medicine - PN: Subj *Date: 05/13/20 *Time: 14:31 Interval history: Patient continues to decline. Blood pressures remain soft on maximum pressors. Urine output has dropped significantly. Exam Vital signs and Labs for Last 24 Hours: Temp Pulse Resp BP Pulse Ox 98.2 F 78 25 H 106/50 L 93 L 05/13/20 13:57 05/13/20 13:57 05/13/20 13:57 05/13/20 13:57 05/13/20 13:57 Laboratory Results - last 24 hr 05/12/20 14:02: Vancomycin Trough 29.7 H 05/12/20 17:15: Gentamicin Trough 4.8 H* 05/13/20 05:45: Sodium 136, Potassium 4.4, Chloride 109 H, Carbon Dioxide 18 L, Anion Gap 13.4, BUN 104 H*, Creatinine 4.10 H D, Estimated Creat Clear 17, Estimated GFR 14 L*, Est GFR ( Amer) 18 L* D, Glucose 201 H D, Calcium 7.0 L, Total Bilirubin 0.7, AST 143 H D, ALT 108 H, Alkaline Phosphatase 106, Total Protein 4.2 L, Albumin 1.7 L, Globulin 2.5, Albumin/Globulin Ratio 0.7 L 05/13/20 05:45: WBC 32.5 H*, RBC 2.77 L, Hgb 7.9 L*, Hct 25.7 L, MCV 92.9, MCH 28.4, MCHC 30.6 L, RDW 26.6 H*, Plt Count 43 L*, MPV 8.5, Neut % (Auto) 94.5 H, Lymph % (Auto) 2.5 L, [place] % (Auto) 2.7, Eos % (Auto) 0.0 L, Baso % (Auto) 0.2, Neut # (Auto) 30.7 H, Lymph # (Auto) 0.8, [place] # (Auto) 0.9, Eos # (Auto) 0.0, Baso # (Auto) 0.1, Total Counted 100, Neutrophils % (Manual) 94 H, Lymphocytes % (Manual) 2 L, Monocytes % (Manual) 4, Nucleated RBCs 3, Platelet Estimate Marked decrease, RBC Morphology Normal 05/13/20 06:00: Specimen Source art line, O2 % 50, ABG pH 7.29 L, ABG pCO2 35.8, ABG pO2 73.0 L, ABG HCO3 16.9 L, ABG Total CO2 18.0 L, ABG O2 Saturation 92, ABG Base Excess -9.7 L, 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, Vent Rate 22, Tidal Volume 460, PEEP 10 05/13/20 08:35: Vancomycin Trough 26.5 H 05/13/20 13:02: Gentamicin Trough 4.0 H* 05/13/20 13:02: Fibrinogen 143 L 05/13/20 13:02: D-Dimer 3.54 H I & O for Last 24 hours: Intake & Output 05/11/20 05/12/20 05/13/20 05/14/20 11:59 11:59 11:59 11:59 Intake Total 388.487 / 307.072 1525.786 / 6766.786 4325.795 / 4325.795 17.157 / 17.157 Output Total 950 / 955 28 / 32 136 / 136 0 / 0 Balance -561.513 / -163.679 0703.786 / 6734.786 4189.795 / 4189.795 17.157 / 17.157 Weight 132 lb 4 oz 154 lb 6 oz 155 lb 13.869 oz Microbiology Reports for the Last 24 Hours: Microbiology 05/11/20 09:00 Urine,Catheterized Urine Culture - Final NO GROWTH AFTER 48 HOURS 05/11/20 09:00 Rectum CRE Surveillance Culture - Final Negative 05/11/20 09:30 Sputum - Endotracheal Tube Aspirate Gram Stain - Final 05/11/20 09:30 Sputum - Endotracheal Tube Aspirate Sputum Culture - Preliminary Narrative: Unresponsive, sedated on ventilator. Skin turgor poor. Urine output negligible. Abdomen soft. Pulse rate regular but muffled heart sounds. Blood pressure low 100s on maximum pressors. Assessment and Plan (1) Unstable angina Status: Acute Category: Medical Code(s): I20.0 - Unstable angina (2) ECG abnormality Status: Acute Category: Medical Code(s): R94.31 - Abnormal electrocardiogram [ECG] [EKG] (3) Anemia Status: Acute Category: Medical Code(s): D64.9 - Anemia, unspecified (4) Pneumonia due to COVID-19 virus Status: Acute Category: Medical Code(s): U07.1 - COVID-19; J12.82 - Pneumonia due to coronavirus disease 2019 (5) Lung cancer Status: Chronic Qualifiers: Laterality: right Lung location: lower lobe of lung Qualified Code(s): C34.31 - Malignant neoplasm of lower lobe, right bronchus or lung Category: Medical Code(s): C34.90 - Malignant neoplasm of unspecified part of unspecified bronchus or lung (6) Atypical chest pain Status: Acute Category: Medical Code(s): R07.89 - Other chest pain (7) Ischemic cardiomyopathy with implantable cardioverter-defibrillator (ICD) Status: Acute Category: Medical Code(s): I25.5 - Ischemic cardiomyopathy; Z95.810 - Presence of automatic (implantable) cardiac defibrillator
--- NOTE | 2020-05-13 16:19 | HMH.PHACONS ---
- Pharmacy Consult Date: 05/13/20 Time: 16:19 Referring provider: DR. ISBELL Reason for Consult:: VANCOMYCIN AND GENTAMICIN LEVELS Allergies and ADEs:: Allergies Allergy/AdvReac Type Severity Reaction Status Date / Time No Known Allergies Allergy Verified 05/04/20 13:09 Home Medications:: Home Medications Medication Instructions Recorded Confirmed Type atorvastatin 80 mg tablet 80 mg PO DAILY tab 06/18/17 05/04/20 History aspirin 81 mg tablet,delayed 81 mg PO DAILY 11/01/17 05/04/20 History release tamsulosin 0.4 mg capsule 0.4 mg PO DAILY cap 03/27/19 05/04/20 History Ticagrelor [Brilinta 90mg 90 mg PO BID 11/03/19 05/04/20 History Tablet] temazepam 15 mg capsule 15 mg PO HS cap 02/19/20 05/04/20 History Codeine Phosphate/Guaifenesin 5 ml PO NEEDED PRN 05/04/20 05/04/20 History [Virtussin AC 10-100 mg/5 ml Lq] Folic Acid 1 mg PO DAILY 05/04/20 05/04/20 History Hydrocodone/Acetaminophen 1 tab PO TID 05/04/20 05/05/20 History [Hydrocodone-Acetamin 10-325 mg] Mirtazapine [Remeron] 15 mg PO HS 05/04/20 05/04/20 History Omeprazole [Omeprazole 40mg 40 mg PO DAILY 05/04/20 05/04/20 History Capsule] Sacubitril/Valsartan [Entresto 49 1 tab PO BID 05/04/20 05/05/20 History mg-51 mg Tablet] carvediloL [Carvedilol 12.5mg Tab] 12.5 mg PO BID 05/04/20 05/04/20 History Fluticasone Propionate [Allergy 1 spray NS DAILY 05/05/20 05/05/20 History Relief] Glycopyrrolate/Formoterol Fum 2 puffs IH BID 05/05/20 05/05/20 History [Bevespi Aerosphere Inhaler] Height: 1.75 m Weight: 70.7 kg Laboratory Results:: Laboratory Results - last 24 hr 05/12/20 17:15: Gentamicin Trough 4.8 H* 05/13/20 05:45: Sodium 136, Potassium 4.4, Chloride 109 H, Carbon Dioxide 18 L, Anion Gap 13.4, BUN 104 H*, Creatinine 4.10 H D, Estimated Creat Clear 17, Estimated GFR 14 L*, Est GFR ( Amer) 18 L* D, Glucose 201 H D, Calcium 7.0 L, Total Bilirubin 0.7, AST 143 H D, ALT 108 H, Alkaline Phosphatase 106, Total Protein 4.2 L, Albumin 1.7 L, Globulin 2.5, Albumin/Globulin Ratio 0.7 L 05/13/20 05:45: WBC 32.5 H*, RBC 2.77 L, Hgb 7.9 L*, Hct 25.7 L, MCV 92.9, MCH 28.4, MCHC 30.6 L, RDW 26.6 H*, Plt Count 43 L*, MPV 8.5, Neut % (Auto) 94.5 H, Lymph % (Auto) 2.5 L, [place] % (Auto) 2.7, Eos % (Auto) 0.0 L, Baso % (Auto) 0.2, Neut # (Auto) 30.7 H, Lymph # (Auto) 0.8, [place] # (Auto) 0.9, Eos # (Auto) 0.0, Baso # (Auto) 0.1, Total Counted 100, Neutrophils % (Manual) 94 H, Lymphocytes % (Manual) 2 L, Monocytes % (Manual) 4, Nucleated RBCs 3, Platelet Estimate Marked decrease, RBC Morphology Normal 05/13/20 06:00: Specimen Source art line, O2 % 50, ABG pH 7.29 L, ABG pCO2 35.8, ABG pO2 73.0 L, ABG HCO3 16.9 L, ABG Total CO2 18.0 L, ABG O2 Saturation 92, ABG Base Excess -9.7 L, 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, Vent Rate 22, Tidal Volume 460, PEEP 10 05/13/20 08:35: Vancomycin Trough 26.5 H 05/13/20 13:02: Gentamicin Trough 4.0 H* 05/13/20 13:02: Fibrinogen 143 L 05/13/20 13:02: D-Dimer 3.54 H Medical History: Reports:: Arrhythmia, Atrial Fibrillation, Cancer (STAGE 4 LUNG), Chronic Obstructive Pulmonary Disease (COPD), Coronary Artery Disease, Hyperlipidemia, Hypertension, Internal Pacemaker, Myocardial Infarction Denies:: Diabetes Mellitus Type 1, Diabetes Mellitus Type 2, MRSA Assessment and Plan (1) Unstable angina Status: Acute Category: Medical Code(s): I20.0 - Unstable angina (2) ECG abnormality Status: Acute Category: Medical Code(s): R94.31 - Abnormal electrocardiogram [ECG] [EKG] (3) Anemia Status: Acute Category: Medical Code(s): D64.9 - Anemia, unspecified (4) Pneumonia due to COVID-19 virus Status: Acute Category: Medical Code(s): U07.1 - COVID-19; J12.82 - Pneumonia due to coronavirus disease 2019 (5) Lung cancer Status: Chronic Qualifiers: Laterality: right Lung location: lower lobe of lung Qualified Code(s): C34.31 - Malignant neoplasm of lower lobe, right bronchus or lung Category: Medi
--- NOTE | 2020-05-13 17:43 | PC.NURSE ---
Patient remains intubated and sedated at this time, 7.[address], 28@lip, OG tube in place, minimal bloody residual noted, perrla, pupils sluggish 2+, minimally responsive with painful stimuli, scleral edema noted, HR reg, lung sounds diminished t/o, abd soft with hypoactive bowel sounds, no BM this shift, FC in place, 4ml of urine output this shift, 2+ edema noted peripherally, arterial line in place and patent, pt has had large amount of bloody secretions, oral care and suctioning q2h, code status addressed with family per dr fields and patient made DNR with plans to withdraw care after family has been able to visit, family at bedside at this time.
--- NOTE | 2020-05-13 18:31 | PC.NURSE ---
IV pressors discontinued at this time per familys request, significant other at bedside with patient
--- NOTE | 2020-05-13 19:03 | PC.NURSE ---
Patient terminally extubated at this time, comfort measures only, family at bedside, will continue to provide supportive care.
--- NOTE | 2020-05-13 21:59 | PC.NURSE ---
1950 patient pronounced by er physician, family at bedside. Cris Ramos stated that patient remains needs to be sent to [facility] due to having been on experimental chemo therapy. Dr. Keys at [facility] oncology. rn spoke with dry house operator Mervin at [facility] regarding process of transfer. paged regional liaison physician dr. steinberg from [facility] to clarify process. Dr. Steinberg stated that he does not need to be transferred to their facility for any post mortum care and can be released to home of families choice. Cris Ramos notified of conversation with Dr. Steinberg, unable to give home name at this time, will talk with family and call back with information
[2020-05-14 04:58] LABS: Aspergillus Antigen, BAL/Serum 0.43 Index (0.00-0.49); Fungitell(Beta D-Glucan) Serum <31 pg/mL (<80)
--- NOTE | 2020-05-14 09:00 | HMH.DEADDC ---
Discharge Sum: Prov - Provider Primary care physician: Neal Hammond MD Visit Care Team Role Provider Type Lanette Willett MD Other Providers Staff Physician Heath Mccurdy MD Other Providers Staff Physician VINCE Altman Other Providers Physician Musical Instrument Mechanic Celeste Egan APRN Other Providers Nurse Practitioner Stephanie Watt APRN Other Providers Nurse Practitioner Eulalio Cazares MD Emergency Provider ER Physician Neal Hammond MD Attending Provider Staff Physician Primary Care Provider Santino Gill MD Admit Provider Staff Physician Admitting clinician: Yonas Jorge Attending physician on admission: Yonas Jorge Consults: 05/10/20 08:07 Pulmonology Consult [Consult to Pulmonology] [CONS] Routine Consulting Provider: Lanette Willett Reason For Consult: covid pneumonia, pulmonary fibrosis, stage 4 Lung CA 05/10/20 10:13 Cardiology Consult [Consult to Cardiology] [CONS] Routine Consulting Provider: Cardiology Reason For Consult: evaluate echo, assess dysrhythmias Discharge Sum: Summary - Date and Time Date of admission: 05/04/20 18:25 Date of : 05/13/20 Time of : 19:50 - Hospital Course prior to Hospital Course Information: 69 year old white male with long history of lung cancer, status post multiple rounds of chemotherapy, with recent recurrent/worsening of tumor burden. Also with severe lung disease, chronic ischemic cardiomyopathy and other comorbidities. Diagnosed with Covid 19 infection on admission the hospital when he presented for fatigue, dehydration symptoms. Initially did well from an oxygenation standpoint over the next 48 hours in hospital begin require more oxygen and began to develop fibrotic lung changes on chest x-ray and symptomatically began to have worsening respiratory mechanics and hypoxia transitioning into Vapotherm, high flow face mask and eventually requiring intubation. Patient wished to be a full code in spite of his terminal prognosis of lung cancer and we respected his wishes. Patient was intubated he was stable for a couple of days but then began to have worsening cardiopulmonary mechanics with dysrhythmias, requiring amiodarone drip, evidence of cardiomyopathy with depressed ejection fraction and hypotension requiring vasopressors with Mehrdad-Synephrine and Levophed. He also began to demonstrate signs of DIC with low platelet count, anemia and required transfusion and platelet transfusions. In addition to this on the evening of May 12 he had the cessation of urine output and uremia and increased creatinine--double over his baseline were noticed the next morning with almost no urine output. I talked with his who is his health care surrogate about his overall poor prognosis, the lack of ability to dialyze him given his worsening DIC and his essentially negligible prognosis for improvement. After talking with his children and a compassionate care visitations they agreed that his prognosis was futile and elected to pursue withdrawal/palliative care. Pressors were withdrawn and he was extubated and from his multiple organ failure and severe sepsis at 1950 on the evening of May 13. - Summary Details: See note above - Additional Data Confirmation of as documented by pronouncing clinician: no pulse Family: at bedside Additional persons at bedside: other Attending/PCP notified?: Yes Attending physician: Neal Hammond MD Was code activated?: No Autopsy requested?: No document examiner notified?: No Org
--- NOTE | 2020-05-14 16:11 | PC.NURSE ---
Richard Lynn at bedside to transport patient to [facility] per familys request.
== END 2020-05-13 19:00 | disposition expired | DRG 208 ==
LOC: ER 13:22 → ICU 18:19
PROVIDERS: Internal Medicine Adolescent Medicine; Internal Medicine Pulmonary Disease; Admitting Provider Emergency Medicine; Emergency Provider Emergency Medicine; PCP Internal Medicine Adolescent Medicine; Visit Provider Internal Medicine Adolescent Medicine
DX: U07.1 COVID-19 (principal); J95.811 Postprocedural pneumothorax; J12.82 Pneumonia due to coronavirus disease 2019; J96.02 Acute respiratory failure with hypercapnia; D65 Disseminated intravascular coagulation [defibrination syndrome]; I25.110 Atherosclerotic heart disease of native coronary artery with unstable angina pectoris; C34.90 Malignant neoplasm of unspecified part of unspecified bronchus or lung; N17.9 Acute kidney failure, unspecified; I47.2 Ventricular tachycardia; I50.22 Chronic systolic (congestive) heart failure; R57.9 Shock, unspecified; R64 Cachexia; I48.91 Unspecified atrial fibrillation; I25.2 Old myocardial infarction; N18.30 Chronic kidney disease, stage 3 unspecified; I25.5 Ischemic cardiomyopathy; I71.4 Abdominal aortic aneurysm, without rupture; J43.1 Panlobular emphysema; I13.10 Hypertensive heart and chronic kidney disease without heart failure, with stage 1 through stage 4 chronic kidney disease, or unspecified chronic kidney disease; Z95.1 Presence of aortocoronary bypass graft; Z95.0 Presence of cardiac pacemaker; Z95.5 Presence of coronary angioplasty implant and graft; D63.0 Anemia in neoplastic disease; D64.81 Anemia due to antineoplastic chemotherapy; Z68.23 Body mass index [BMI] 23.0-23.9, adult; Z79.899 Other long term (current) drug therapy; Z79.01 Long term (current) use of anticoagulants; Z79.84 Long term (current) use of oral hypoglycemic drugs
CPT/HCPCS: 31500; 94002; 32551; 36556; 36415; 71045; 71275; 80048; 80053; 80076; 80170; 80202; 81001; 82140; 82803; 83605; 83615; 83735; 84145; 84484; 85007; 85014; 85018; 85025; 85378; 85384; 85610; 86140; 86850; 87040; 87070; 87077; 87081; 87086; 87186; 87205; 87305; 87449; 87486; 87581; 87633; 87798; 93005; 93306; 94003; 94640; 94760; 94761; 96365; 96367; 99285; C1751; J0282; J0330; J1956; J2704; J3370; J7060; P9016; P9017; P9034; Q9967; U0003